=== PATIENT | male | born 1960 | race Caucasian/White ===

== ENCOUNTER 2016-11-01 17:09 | Inpatient (IN) ==
[2016-11-01] MEDS ORDERED: Albuterol 2.5 MG/3 ML NEBULIZER IH ONE (17:12)
[2016-11-01] MEDS ORDERED: Ipratropium/Albuterol Neb 3 ML IH ONE (17:12)
[2016-11-01] MEDS ORDERED: methylPREDNISolone 125 MG/2 ML VIAL IVP ONE (17:12)
[2016-11-01] MEDS ORDERED: Vancomycin 2,000 MG in D5% in Water 500 ML IVPB STA (17:25)
[2016-11-01] MEDS ORDERED: Azithromycin 500 MG in D5% in Water 250 ML IVPB ONE (17:25)
[2016-11-01 17:39] LABS: Basophils % 0.3 %; Hematocrit 40.8 % (37.5-50.1); Hemoglobin 13.8 g/dL (12.9-16.9); Immature Granulocytes % 0.9 % (0-4); Immature Platelets 1.5 % (1.1-6.1); Lymphocytes # 1.8 K/mcL (0.6-4.6); Lymphocytes % 16.3 %; Mean Corpuscular HGB Conc 33.8 g/dL (31.6-35.5); Mean Corpuscular Hemoglobin 32.9 pg (28.0-33.3); Mean Corpuscular Volume 97.1 fL (83.0-100.0); Mean Platelet Volume 8.8 fL (9.4-12.4); Monocytes # 0.5 K/mcL (0.0-1.3); Monocytes % 4.3 %; Neutrophils # 8.8 K/mcL (1.6-8.9); Platelet Count 262 K/mcL (140-400); Red Cell Distribution Width 13.7 % (11.5-14.5); Segmented Neutrophils % 78.2 %
[2016-11-01 17:51] LABS: BUN/Creatinine Ratio 15 (6-26); Blood Urea Nitrogen 16 mg/dL (8-26); Carbon Dioxide 25 mEq/L (19-29); Chloride 102 mEq/L (98-109); Glucose 215 mg/dL (70-99); Osmolality,Calculated 292 (280-300); Potassium 4.1 mEq/L (3.5-4.5); Sodium 137 mEq/L (136-145); eGFR For African Americans > 60 (> 60); eGFR For Non-African Americans > 60 (> 60)
[2016-11-01] MEDS ORDERED: Cefepime HCl 2,000 MG in D5% in Water (Mini-Bag+) 100 ML IVPB ONE (17:51)
--- NOTE | 2016-11-01 18:22 | Emergency Department Note ---
Disposition Clinical Impression: Acute exacerbation of chronic obstructive airways disease, Community acquired pneumonia Disposition: Admitted As Inpatient Condition: Good Forms: ED Satisfaction Letter Time of Disposition: 18:00 SOB HPI - General Chief Complaint: ED Shortness of Breath/Dyspnea Stated Complaint: FAN Time Seen by Provider: 11/01/16 17:11 Source: patient, EMS Mode of arrival: EMS Limitations: no limitations Nursing Notes Reviewed: Yes Vital Signs Reviewed: Yes - History of Present Illness 56-year-old male presents with increasing shortness of breath. Patient states he has been treated with levofloxacin and prednisone over 2 courses over the past month. Patient had a chest x-ray which shows a right middle lobe pneumonia done 2 days ago. Patient states that his symptoms have become progressively worse. She was unable to walk across his house without becoming short of breath. He reports subjective fevers and took Tylenol prior to arrival. Patient denies nausea, vomiting, diarrhea. - Related Data Allergies Allergy/AdvReac Type Severity Reaction Status Date / Time latex Allergy Rash Verified 11/01/16 17:44 morphine Allergy Vomiting Verified 11/01/16 17:44 All systems ED: reviewed and negative except as stated. Constitutional: Reports: fever, chills, weakness Cardiovascular: Reports: dyspnea on exertion. Denies: chest pain, palpitations Respiratory: Reports: cough, dyspnea, wheezes Gastrointestinal: Denies: abdominal pain, nausea, vomiting Genitourinary: Denies: urgency, dysuria Musculoskeletal: Denies: back pain, neck pain Integumentary: Denies: rash Neurological: Denies: headache, weakness Past Medical History - Past Medical History Attestation: Yes The following information was validated with the patient. Source: patient Medical history: Reports: asthma, COPD, hypertension - Social History Smoking Status: Former smoker Smokeless Tobacco Status: No Alcohol use: Reports: none Drug use: Reports: none Physical Exam General: Alert and in no acute distress Skin: Warm, dry, intact Head: Normocephalic and atraumatic Neck: Supple, trachea midline and no tenderness Cardiovascular: RRR, no murmur, normal perfusion Respiratory: Moderate amount of wheezing in the bilateral posterior lung childers. Patient has moderate respiratory distress on initial evaluation. Musculoskeletal: Normal strength, no tenderness, swelling or deformity GI: Soft, nontender, nondistended. Bowel sounds present Neuro: A&O to person, place, time and situation. No focal deficits noted on exam Psychiatric: cooperative and appropriate mood and affect. - General General appearance: alert Course Vital Signs Temperature 97.7 F 11/01/16 17:12 Pulse Rate 91 11/01/16 17:12 Respiratory Rate 18 11/01/16 17:12 Blood Pressure 124/74 11/01/16 17:12 O2 Sat by Pulse Oximetry 96 11/01/16 17:12 Temperature 97.7 F 11/01/16 17:12 Pulse Rate 91 11/01/16 17:12 Respiratory Rate 18 11/01/16 18:07 Blood Pressure 124/74 11/01/16 17:12 O2 Sat by Pulse Oximetry 96 11/01/16 18:07 Oxygen Delivery Oxygen Delivery Aerosol Mask Shortness of Breath/Dyspnea - MDM Narrative Medical decision making narrative: Patient started on IV antibiotics and admitted to the hospital for failure of outpatient treatment of community-acquired pneumonia. - Medical Records Medical records reviewed: Yes I reviewed the patient's medical records. - Lab Data Lab results reviewed: Yes I reviewed the patient's lab results. Result diagrams: 11/01/16 17:26 11/01/16 17:26 Lab Results 11/01/16 11/01/16 11/01/16 Range/Units 17:26 17:26 17:26 WBC 11.3 H (4.3-11.1) K/mcL RBC 4.20 (4.19-5.50) M/mcL Hgb 13.8 (12.9-16.9) g/dL Hct 40.8 (37.5-50.1) % MCV 97.1 (83.0-100.0) fL MCH 32.9 (28.0-33.3) pg MCHC 33.8 (31.6-35.5) g/dL RDW 13.7 (11.5-14.5) % Plt Count 262 (140-400) K/mcL MPV 8.8 L (9.4-12.4) fL Immature Gran % 0.9 (0-4) % Seg Neutrophils % 78.2 % Lymphocytes % 16.3 % Monocytes % 4.3 % Eosinophils % 0.0 % Basophils % 0.3 % Neutrophils # 8.8 (1.6-8.9) K/mcL Lymphocytes # 1.8 (0.6-4.6) K/mcL Monocytes # 0.5 (0.0-1.3) K/mcL Eosinophils # 0.0 (0.0-0.6) K/mcL Basophils # 0.0 (0.0-0.2) K/mcL Immature Plt Fraction 1.5 (1.1-6.1) % Sodium 137 (136-145) mEq/L Potassium 4.1 (3.5-4.5) mEq/L Chloride 102 (98-109) mEq/L Carbon Dioxide 25 (19-29) mEq/L BUN 16 (8-26) mg/dL Creatinine 1.04 (0.72-1.25) mg/dL Est GFR ( Amer) > 60 (> 60) Est GFR (Non-Af Amer) > 60 (> 60) BUN/Creatinine Ratio 15 (6-26) Glucose 215 H (70-99) mg/dL Calculated Osmolality 292 (280-300) Calcium 10.0 (8.6-10.8) mg/dL Troponin I 0.01 (0-0.03) ng/mL B-Natriuretic Peptide (0-100) pg/mL Specimen Rejected 11/01/16 11/01/16 Range/Units 17:26 17:57 WBC (4.3-11.1) K/mcL RBC (4.19-5.50) M/mcL Hgb (12.9-16.9) g/dL Hct (37.5-50.1) % MCV (83.0-100.0) fL MCH (28.0-33.3) pg MCHC (31.6-35.5) g/dL RDW (11.5-14.5) % Plt Count (140-400) K/mcL MPV (9.4-12.4) fL Immature Gran % (0-4) % Seg Neutrophils % % Lymphocytes % % Monocytes % % Eosinophils % % Basophils % % Neutrophils # (1.6-8.9) K/mcL Lymphocytes # (0.6-4.6) K/mcL Monocytes # (0.0-1.3) K/mcL Eosinophils # (0.0-0.6) K/mcL Basophils # (0.0-0.2) K/mcL Immature Plt Fraction (1.1-6.1) % Sodium (136-145) mEq/L Potassium (3.5-4.5) mEq/L Chloride (98-109) mEq/L Carbon Dioxide (19-29) mEq/L BUN (8-26) mg/dL Creatinine (0.72-1.25) mg/dL Est GFR ( Amer) (> 60) Est GFR (Non-Af Amer) (> 60) BUN/Creatinine Ratio (6-26) Glucose (70-99) mg/dL Calculated Osmolality (280-300) Calcium (8.6-10.8) mg/dL Troponin I (0-0.03) ng/mL B-Natriuretic Peptide 18 (0-100) pg/mL Specimen Rejected Hemolyzed - Radiology Data Radiology results reviewed: Yes I reviewed the patient's radiology results. - EKG Data EKG attestation: Yes I reviewed and interpreted this EKG. EKG results narrative: ECG - interpreted by ED physician. Rate 70 to, normal sinus rhythm, no STEMI, CO, QT intervals, and QRS within normal limits
[2016-11-01] MEDS ORDERED: Mag Hydrox/Al Hydrox/Simeth 30 ML UDC PO PRN (19:12)
[2016-11-01] MEDS ORDERED: MOM Conc 10 ML UD.LIQ PO PRN (19:12)
[2016-11-01] MEDS ORDERED: Ondansetron 4 MG/2 ML VIAL IVP PRN (19:12)
[2016-11-01] MEDS ORDERED: Naloxone 0.4 MG/ML INJ IVP PRN (19:12)
[2016-11-01] MEDS ORDERED: *HR* HYDROcodone/Acet 5/325 mg TABLET PO PRN (19:12)
[2016-11-01] MEDS ORDERED: Acetaminophen 325 MG TABLET PO PRN (19:12)
[2016-11-01] MEDS ORDERED: Albuterol 2.5 MG/3 ML NEBULIZER IH PRN ×2 (19:17→19:49)
--- NOTE | 2016-11-01 19:28 | Internal Med History&Physical ---
Date of Encounter: 11/02/16 Time of Encounter: 18:45 Assessment and Plan (1) Acute exacerbation of chronic obstructive airways disease Current visit: Yes Status: Acute Pt with hx of COPD/asthma. Has had two courses of abx and steroids over last month as outpatient and does not feel any better. Continues to have significant respiratory issues. I have placed him inpatient as I am concerned about worsening respiratory issues and anticipate he will be here more than 2 midnights. Admit, IV steroids and abx, aerosols. Check CT chest due to persistent symptoms. May need pulm consult. Will add guafenesin as well. (2) Community acquired pneumonia Current visit: Yes Status: Acute Recent treatment with two abx and steroids. Blood cx done in ED. Started on Cefipime and Azithromycin. He was given one dose of Vancomycin IV in ED but I will hold off on this as I think he is low risk for MRSA. Respiratory panel ordered. CT chest tomorrow. (3) ADNYELLE (obstructive sleep apnea) Current visit: Yes Status: Chronic Had sleep study and is to be wearing CPAP of 10. (4) HTN (hypertension) Current visit: Yes Status: Chronic Will continue home medications. (5) Diabetes Current visit: Yes Status: Chronic Continue home meds as well as coverage with accuchecks. 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 David is a 56 year old male with hx of asthma (since childhood) and COPD presented to ED with persistent dyspnea. Symptoms began around 09/23 and at that time he took a course of Levaquin and steroids for 10 days. He had a CXR with RML pneumonia at that time. Symptoms returned and again he had a course of 10 days of Levaquin and steroids. Symptoms have persisted and CXR 2 days ago was reported to have continued pneumonia. He remains very dyspneic and wheezy. He is unable to exert himself without significant dyspnea. He describes a feeling of being "under water" and squeezing in his chest area. He also feels swollen since being on steroids. Denies fever documented but "always feels warm." No diarrhea or urinary symptoms. No prior hx of cardiac disease but does have HTN and diabetes. No recent travel. Past Med Surg Social Fam HX - Past Medical History Source: patient Medical history: arthritis, asthma, COPD, diabetes (Chronic back pain), hypertension Psychiatric history: no psych history - Past Surgical History Surgical History: knee replacement (Left - ) - Social History Smoking Status: Former smoker Smokeless Tobacco Status: No Alcohol use: none Drug use: none Occupational status: unemployed Current living situation: Home - Independent Activity Level: Independent ambulation Recent Out of Country Travel Within the Last 8 Weeks: No Exposure or Possible Exposure to Illness During Travel: No Additional social history: Prior alcohol - quit in 1995. Smoked 2 1/2 PPD for about 14 years. - Family History Father Hx Family Cardiac Disorders: Yes Mother Hx Family Medical Disorders: Yes (DVT) Internal Medicine - H&P: Meds Albuterol Neb [Proventil Neb] 2.5 mg IH Q6H PRN 11/01/16 [History] Albuterol Sulfate [Albuterol Inhaler] 1 - 2 puff IH Q6HR PRN 11/01/16 [History] Baclofen [Lioresal] 10 mg PO TID 11/01/16 [History] BuPROPion XL (24 HR) [Wellbutrin XL] 150 mg PO QAM 11/01/16 [History] Budesonide/Formoterol 160/4.5 [Symbicort 160/4.5] 2 puff IH BID 11/01/16 [ History] Cetirizine HCl [All Day Allergy] 10 mg PO DAILY 11/01/16 [History] CloNIDine HCl [Clonidine HCl] 0.2 mg PO AD PRN 11/01/16 [History] Dicyclomine [Bentyl] 10 mg PO TID 11/01/16 [History] Docusate [Colace] 100 mg PO BID 11/01/16 [History] Escitalopram [Lexapro] 20 mg PO QPM 11/01/16 [History] Fluticasone Propionate Nasal [Flonase] 100 mcg NS DAILY 11/01/16 [History] Gabapentin [Neurontin] 800 mg PO QID 11/01/16 [History] Ibuprofen [Motrin] 800 mg PO Q8HR 11/01/16 [History] Levofloxacin [Levaquin] 750 mg PO QAM 11/01/16 [History] Losartan/Hydrochlorothiazide [Hyzaar 100-25 Tablet] 1 tab PO QPM 11/01/16 [ History] Metoprolol XL (24 HR) Succ [Toprol XL] 25 mg PO QAM 11/01/16 [History] Montelukast [Singulair] 10 mg PO QPM 11/01/16 [History] Omeprazole [PriLOSEC] 20 mg PO QAM 11/01/16 [History] Oxycodone HCl/Acetaminophen [Percocet 7.5-325 mg Tablet] 1 tab PO Q6H PRN [History] PredniSONE [Deltasone] 20 mg PO DAILY 11/01/16 [History] Ranitidine HCl [Zantac] 300 mg PO QAM 11/01/16 [History] Simvastatin [Zocor] 40 mg PO QPM 11/01/16 [History] Allergies latex Allergy (Verified 11/01/16 17:44) Rash morphine Adverse Reaction (Verified 11/01/16 19:22) Vomiting All Systems PM: A 10-system review of systems was performed and is negative for pertinent findings except as documented above in the HPI. - Constitutional Constitutional: fatigue, malaise, weight gain - EENT Eyes: no blurry vision, no dry eye Ears: no decreased hearing, no ear pain Nose, mouth and throat: dry mouth, no mouth lesions, no mouth pain - Cardiovascular Cardiovascular ROS IM: dyspnea, dyspnea on exertion, edema, no irregular heart rhythm, no lightheadedness, no palpitations - Respiratory Respiratory: cough, dyspnea on exertion, wheezing, chest congestion - Gastrointestinal Gastrointestinal: no abdominal pain, no diarrhea, no dyspepsia, no hematemesis, no nausea - Genitourinary Genitourinary ROS male: no dysuria, no hematuria, no nocturia - Musculoskeletal Musculoskeletal ROS IM: back pain, stiffness - Integumentary Integumentary IM: no erythema, no rash - Neurological Neurological ROS: no abnormal gait, no dizziness, no loss of vision, no memory loss - Psychiatric Psychiatric: no abnormal sleep pattern, no depression - Endocrine Endocrine IM: no excessive sweating, no flushing - Hematologic/Lymphatic Hematologic/Lymphatic: no easy bleeding - Allergic/Immunologic Allergic/Immunologic: no itchy eyes, no uticaria - Constitutional Vitals: Temp Pulse Resp BP Pulse Ox 97.7 F 73 16 127/74 97 11/01/16 17:12 11/01/16 18:20 11/01/16 18:20 11/01/16 18:20 11/01/16 18:20 General appearance: Present: A&O X 3, morbidly obese, pleasant, answers questions appropriately Exam: Moderate respiratory distress with audible wheezing at bedside - Head Head exam: Present: atraumatic, normocephalic - Eye Eye exam: Present: EOMI, normal appearance, conjuntiva pink - ENT ENT exam: Present: mucous membranes dry - Neck Neck exam general surgery: Absent: lymphadenopathy, tenderness, nuchal rigidity , thyromegaly - Respiratory Respiratory exam: Present: prolonged expiratory phase, rhonchi, wheezes - Cardiovascular Cardiovascular exam: Present: distant heart sounds, RRR. Absent: systolic murmur, tachycardia - GI/Abdominal GI/Abdominal exam: Present: normal bowel sounds, soft. Absent: mass, tenderness Additional comments: Obese - difficult to feel mass. - Extremities Exam Extremities exam: Present: pedal edema, warm. Absent: joint swelling, tenderness - Back Exam Back exam: Absent: tenderness - Neurological Exam Neurological exam: Present: alert, CN II-XII intact, oriented X3, no focal deficits - Psychiatric Psychiatric exam: Present: normal affect, normal mood - Skin Skin exam: Present: dry, warm. Absent: rash Internal Med - H&P Results - Labs CBC & Chem 7: 11/02/16 04:48 11/02/16 04:48
[2016-11-01] MEDS ORDERED: D5% in Water 1,000 ML IV PRN (19:46)
[2016-11-01] MEDS ORDERED: Dextrose Gel 15 GM PO PRN ×2 (19:46)
[2016-11-01] MEDS ORDERED: *HR* Dextrose 50 % in Water (Syg) 50 ML SYRINGE IVP PRN (19:46)
[2016-11-01] MEDS ORDERED: NON-FORMULARY MEDICATION 1 EACH EACH (Clonidine Hcl [Clonidine Hcl] 0.2 MG) PO PRN (19:49)
[2016-11-01 20:28] LABS: Hemoglobin A1C 6.7 %
[2016-11-01] MEDS ORDERED: Gabapentin 400 MG CAPSULE PO SCH (21:00)
[2016-11-01] MEDS: Ipratropium/Albuterol Neb 3 ML IH SCH ×2 (21:12→23:49)
[2016-11-01] MEDS: Budesonide/Formoterol 160/4.5 MDI IH SCH ×2 (21:12→23:49)
[2016-11-01] MEDS ORDERED: Ibuprofen 800 MG TABLET PO PRN (21:48)
[2016-11-01] MEDS: *HR* OxyCODONE/APAP 7.5/325 TABLET PO PRN (22:04)
[2016-11-01] MEDS: Gabapentin 400 MG CAPSULE PO SCH (22:04)
[2016-11-01] MEDS: Losartan/HCTZ 50-12.5 TABLET PO SCH (22:04)
[2016-11-01] MEDS: Baclofen 10 MG TABLET PO SCH (22:05)
[2016-11-01] MEDS: Insulin LISPRO 300 UNITS/3 ML VIAL SQ SCH (22:23)
[2016-11-02] MEDS ORDERED: Ibuprofen 800 MG TABLET PO SCH
[2016-11-02] MEDS: *HR* Heparin 5,000 UNIT/ML VIAL SQ SCH ×3 (00:44→16:30)
[2016-11-02] MEDS: methylPREDNISolone 125 MG/2 ML VIAL IVP SCH ×4 (00:44→18:37)
[2016-11-02] MEDS: Ipratropium/Albuterol Neb 3 ML IH SCH ×4 (02:35→22:03)
[2016-11-02] MEDS: Gabapentin 400 MG CAPSULE PO SCH ×4 (02:57→20:19)
[2016-11-02] MEDS: Famotidine 20 MG TABLET PO SCH (02:58)
[2016-11-02] MEDS: BuPROPion XL (24 HR) 150 MG TABLET PO SCH (02:58)
[2016-11-02] MEDS: Loratadine 10 MG TABLET PO SCH (02:58)
[2016-11-02] MEDS: *HR* OxyCODONE/APAP 7.5/325 TABLET PO PRN ×3 (04:07→18:31)
[2016-11-02 05:04] LABS: Basophils % 0.2 %; Hemoglobin 13.4 g/dL (12.9-16.9); Immature Granulocytes % 1.5 % (0-4); Lymphocytes % 9.9 %; Mean Corpuscular HGB Conc 34.4 g/dL (31.6-35.5); Mean Corpuscular Hemoglobin 32.8 pg (28.0-33.3); Mean Corpuscular Volume 95.4 fL (83.0-100.0); Mean Platelet Volume 8.8 fL (9.4-12.4); Monocytes # 0.1 K/mcL (0.0-1.3); Neutrophils # 9.2 K/mcL (1.6-8.9); Platelet Count 236 K/mcL (140-400); Red Blood Count 4.09 M/mcL (4.19-5.50); Red Cell Distribution Width 13.3 % (11.5-14.5); Segmented Neutrophils % 87.4 %
[2016-11-02 05:25] LABS: Alanine Aminotransferase 33 Units/L (0-55); Albumin 3.2 g/dL (3.5-5.0); Albumin/Globulin Ratio 0.7 (1.1-2.2); Alkaline Phosphatase 53 Units/L (38-126); Aspartate Amino Transferase 19 Units/L (5-34); BUN/Creatinine Ratio 19 (6-26); Bilirubin,Total 0.4 mg/dL (0.2-1.2); Blood Urea Nitrogen 19 mg/dL (8-26); Calcium 9.6 mg/dL (8.6-10.8); Carbon Dioxide 26 mEq/L (19-29); Chloride 101 mEq/L (98-109); Chol/HDL Ratio 2.4 (0-4.9); Cholesterol 178 mg/dL (< 200); Globulin 4.4 g/dL (2.4-3.5); Glucose 250 mg/dL (70-99); HDL Cholesterol 73 mg/dL (40-59); LDL Cholesterol,Calculated 88 mg/dL (0-99); Magnesium 1.9 mg/dL (1.6-2.6); Osmolality,Calculated 291 (280-300); Phosphorous 3.7 mg/dL (2.3-4.7); Sodium 135 mEq/L (136-145); Total Protein 7.6 g/dL (6.0-8.3); Triglycerides 84 mg/dL (< 150); eGFR For African Americans > 60 (> 60); eGFR For Non-African Americans > 60 (> 60)
[2016-11-02] MEDS: Cefepime HCl 2,000 MG in D5% in Water (Mini-Bag+) 100 ML IVPB SCH ×2 (06:41→18:39)
[2016-11-02] MEDS: Metoprolol XL (24 HR) Succ 25 MG TAB.ER.24H PO SCH (09:03)
[2016-11-02] MEDS: Insulin LISPRO 300 UNITS/3 ML VIAL SQ SCH ×4 (09:06→21:43)
[2016-11-02] MEDS: Fluticasone Propionate Nasal 50 MCG/SPRAY BOTTLE NS SCH (09:08)
[2016-11-02] MEDS: Budesonide/Formoterol 160/4.5 MDI IH SCH ×2 (11:09→22:03)
[2016-11-02] MEDS: Baclofen 10 MG TABLET PO SCH ×3 (11:21→20:18)
--- NOTE | 2016-11-02 11:33 | Electrocardiograph Report ---
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
--- NOTE | 2016-11-02 13:58 | Pulmonology Consult Note ---
Date of Encounter: 11/02/16 Time of Encounter: 13:56 Assessment and Plan (1) Acute exacerbation of chronic obstructive airways disease Current Visit: Yes Status: Acute Patient has had several exacerbations of obstructive lung disease over the last couple of months is unclear to me what process is at play here I suspect he may have a possible component of cardiogenic pulmonary edema at present would favor culturing patient for respiratory infection but I do not this anything empiric antibiotics or steroids are necessary. Would focus on bronchodilator therapy and trial of diuresis. I agree with a noncontrasted CT scan of his chest given chronicity of symptoms his checks x-ray was unremarkable for acute pneumonic process Current oxygen saturation is appropriate on room air (2) Lower extremity edema Current Visit: Yes Status: Acute Bilateral pitting edema long-standing hypertension have concern for heart failure with preserved ejection fraction BNP was normal however patient's morbidly obese I would get baseline echocardiogram and trial of Lasix goal -1- 1.5 L over the next 24 hours continue to monitor renal function panel while diuresing this should be done at least daily Qualifiers: Laterality: bilateral Qualified Code(s): R60.0 - Localized edema (3) HTN (hypertension) Current Visit: Yes Status: Chronic Blood pressure control is still suboptimal will do defer to primary hospitalist service to manage this Qualifiers: Hypertension type: essential hypertension Qualified Code(s): I10 - Essential (primary) hypertension (4) Morbid obesity Current Visit: Yes Status: Chronic Patient is struggled with calorie counts and has been inactive secondary to having a torn meniscus and has not been a candidate for surgery to this and if for no other reason would try to avoid steroids if possible Qualifiers: Obesity type: due to excess calories Qualified Code(s): E66.01 - Morbid ( severe) obesity due to excess calories (5) DANYELLE (obstructive sleep apnea) Current Visit: Yes Status: Chronic Wear CPAP with pressure of 10 at night will transition over to BiPAP in the current setting for increased work of breathing or at night would start empiric settings 16/8 bleed in oxygen to keep saturations greater than 89% to approximately 92% currently he is not requiring any oxygen (6) DVT prophylaxis Current Visit: Yes Status: Acute While inpatient high risk medicine patient would recommend chemical DVT prophylaxis History of Present Illness Consult date: 11/02/16 Requesting physician: Joshua Rosado Reason for consult: asthma Chief complaint: Shortness of Breath History of present illness: Mr. David is a very pleasant 56-year-old gentleman well known to me from clinic where I have seen him for obstructive lung disease ray has a phenotype consistent with combination of COPD as he was very remote former smoker along with asthma. He also suffers from morbid obesity and obstructive sleep apnea. When I saw him at the beginning of September he was doing quite well on therapy for asthma and very compliant with positive airway pressure at night. He states that since around the time of he has noted increased cough with sputum production difficulty with breathing he has undergone at least 2 rounds of antibiotics and steroids given to him by his primary care physician despite that he presented to the emergency room yesterday with increased work of breathing says it feels like his lungs are "filling up with fluid". He also notes that he has had increased swelling in his legs increased weight gain much of which she attributes to indiscretion with holiday foods. Denies fevers chills or hemoptysis Continues to be compliant with BAP therapy every night he does state that he feels like "there is not enough pressure" to help him sleep as her was before Past Med Surg Social Fam HX - Past Medical History Medical history: asthma, COPD, hypertension Psychiatric history: no psych history - Past Surgical History Surgical History: knee replacement - Social History Smoking Status: Former smoker Smokeless Tobacco Status: No Alcohol use: none Drug use: none - Family History Father Hx Family Cardiac Disorders: Yes Mother Hx Family Medical Disorders: Yes (DVT) Medications and Allergies Albuterol Neb [Proventil Neb] 2.5 mg IH Q6H PRN 11/01/16 [History] Albuterol Sulfate [Albuterol Inhaler] 1 - 2 puff IH Q6HR PRN 11/01/16 [History] Baclofen [Lioresal] 10 mg PO TID 11/01/16 [History] BuPROPion XL (24 HR) [Wellbutrin XL] 150 mg PO QAM 11/01/16 [History] Budesonide/Formoterol 160/4.5 [Symbicort 160/4.5] 2 puff IH BID 11/01/16 [ History] Cetirizine HCl [All Day Allergy] 10 mg PO DAILY 11/01/16 [History] CloNIDine HCl [Clonidine HCl] 0.2 mg PO AD PRN 11/01/16 [History] Dicyclomine [Bentyl] 10 mg PO TID 11/01/16 [History] Docusate [Colace] 100 mg PO BID 11/01/16 [History] Escitalopram [Lexapro] 20 mg PO QPM 11/01/16 [History] Fluticasone Propionate Nasal [Flonase] 100 mcg NS DAILY 11/01/16 [History] Gabapentin [Neurontin] 800 mg PO QID 11/01/16 [History] Ibuprofen [Motrin] 800 mg PO Q8HR 11/01/16 [History] Levofloxacin [Levaquin] 750 mg PO QAM 11/01/16 [History] Losartan/Hydrochlorothiazide [Hyzaar 100-25 Tablet] 1 tab PO QPM 11/01/16 [ History] Metoprolol XL (24 HR) Succ [Toprol XL] 25 mg PO QAM 11/01/16 [History] Montelukast [Singulair] 10 mg PO QPM 11/01/16 [History] Omeprazole [PriLOSEC] 20 mg PO QAM 11/01/16 [History] Oxycodone HCl/Acetaminophen [Percocet 7.5-325 mg Tablet] 1 tab PO Q6H PRN [History] PredniSONE [Deltasone] 20 mg PO DAILY 11/01/16 [History] Ranitidine HCl [Zantac] 300 mg PO QAM 11/01/16 [History] Simvastatin [Zocor] 40 mg PO QPM 11/01/16 [History] Allergies latex Allergy (Verified 11/01/16 17:44) Rash morphine Adverse Reaction (Verified 11/01/16 19:22) Vomiting All Systems: A 10-system review of systems was performed and is negative for pertinent findings except as documented above in the HPI. Physical Examination Vital Signs: Vital Signs, Last 4 Hours Temp Pulse Resp BP Pulse Ox 11/02/16 11:31 97.6 F 70 14 170/97 94 L General appearance: no acute distress ENT: oropharynx moist Effort: mildly labored Auscultation: bilateral: diminished breath sounds, wheezes (faint wheeze ), rales (bl in lung bases ), rhonchi (scattered ) Cardiovascular: regular rate and rhythm Gastrointestinal: non-tender Extremities: edema Musculoskeletal: no deformities normal mental status, non-focal exam mood appropriate Results - Laboratory Findings CBC and BMP: 11/02/16 04:48 11/02/16 04:48 Abnormal lab findings: Abnormal lab results RBC 4.09 M/mcL (4.19-5.50) L 11/02/16 04:48 MPV 8.8 fL (9.4-12.4) L 11/02/16 04:48 Neutrophils # 9.2 K/mcL (1.6-8.9) H 11/02/16 04:48 Sodium 135 mEq/L (136-145) L 11/02/16 04:48 Glucose 250 mg/dL (70-99) H 11/02/16 04:48 POC Glucose 185 (58-89) H 11/02/16 11:38 Hemoglobin A1c 6.7 % (-5.6) H 11/01/16 17:26 Lactic Acid 2.9 mmol/L (0.5-2.2) H 11/01/16 18:47 Albumin 3.2 g/dL (3.5-5.0) L 11/02/16 04:48 Globulin 4.4 g/dL (2.4-3.5) H 11/02/16 04:48 Albumin/Globulin Ratio 0.7 (1.1-2.2) L 11/02/16 04:48 HDL Cholesterol 73 mg/dL (40-59) H 11/02/16 04:48 - Diagnostic Findings Chest x-ray: report reviewed CT scan - chest: pending - Clinical Findings Intake & Output: Intake & Output 11/01/16 11/02/16 11/02/16 23:59 07:59 15:59 Intake Total 270 / 270 Balance 270 / 270 Weight 168.6 kg Consult Discharge Plan - Plan Referrals: Torie Crespo, DEBORAH [Primary Care Provider] - 11/08/16 1:25 pm
[2016-11-02] MEDS: Furosemide 40 MG/4 ML VIAL IVP SCH ×2 (16:29→18:44)
[2016-11-02] MEDS ORDERED: Cefepime HCl 2,000 MG in D5% in Water (Mini-Bag+) 100 ML IVPB ONE (17:25)
--- NOTE | 2016-11-02 18:08 | Internal Med Progress Note ---
Date of Encounter: 11/02/16 Time of Encounter: 13:00 - Assessment and plan (1) Acute exacerbation of chronic obstructive airways disease Current Visit: Yes Status: Acute Assessment and plan: Slight improvement today. Continue current management. Appreciate pulm input and plan. Bipap tonight. Anticipate wean steroids tomorrow. Lasix for diuresis tonight. (2) Community acquired pneumonia Current Visit: Yes Status: Acute Assessment and plan: Continue same IV abx. (3) DANYELLE (obstructive sleep apnea) Current Visit: Yes Status: Chronic Assessment and plan: Per pulm (4) HTN (hypertension) Current Visit: Yes Status: Chronic Assessment and plan: Continue home meds. Has been higher overnight but better today. Qualifiers: Hypertension type: essential hypertension Qualified Code(s): I10 - Essential (primary) hypertension (5) Diabetes Current Visit: Yes Status: Chronic Assessment and plan: Continue coverage. HgbA1C was 6.7% Qualifiers: Diabetes mellitus type: type 2 Diabetes mellitus complication status: with hyperglycemia Diabetes mellitus superintendent container terminal insulin use: without senior living use Qualified Code(s): E11.65 - Type 2 diabetes mellitus with hyperglycemia (6) Morbid obesity Current Visit: Yes Status: Chronic Qualifiers: Obesity type: due to excess calories Qualified Code(s): E66.01 - Morbid ( severe) obesity due to excess calories - Subjective Interval history: Mr. David is currently admitted for acute exac COPD and pneumonia. He is moderate to high risk due to potential worsening of respiratory status and failure of prior treatment. Mr. David is up and moving in room. He is doing OK but did not sleep well. Thinks breathing improved after about 4AM. Still coughing a lot. No abd pain or GI symptoms. - Constitutional Vitals: Temp Pulse Resp BP Pulse Ox 97.9 F 71 16 166/88 96 11/02/16 16:00 11/02/16 16:00 11/02/16 16:00 11/02/16 16:00 11/02/16 16:00 General appearance: Present: A&O X 3, morbidly obese, pleasant, answers questions appropriately - Head Head exam: Present: normocephalic - Eye Eye exam: Present: EOMI, conjuntiva pink - ENT ENT exam: Present: mucous membranes moist - Respiratory Respiratory exam: Present: decreased breath sounds. Absent: rhonchi, wheezes - Cardiovascular Cardiovascular exam: Present: RRR. Absent: tachycardia - GI/Abdominal GI/Abdominal exam: Present: soft. Absent: tenderness - Extremities Exam Extremities exam: Present: pedal edema, warm - Neurological Exam Neurological exam: Present: alert, oriented X3, no focal deficits - Psychiatric Psychiatric exam: Present: normal affect, normal mood - Skin Skin exam: Present: dry, normal color, warm. Absent: rash Internal Medicine: Result - Labs CBC & Chem 7: 11/02/16 04:48 11/02/16 04:48 Labs: Short CBC 11/02/16 Range/Units 04:48 WBC 10.5 (4.3-11.1) K/mcL Hgb 13.4 (12.9-16.9) g/dL Hct 39.0 (37.5-50.1) % Plt Count 236 (140-400) K/mcL Neutrophils # 9.2 H (1.6-8.9) K/mcL BMP 11/02/16 04:48 Sodium 135 L Potassium 4.0 Chloride 101 Carbon Dioxide 26 BUN 19 Creatinine 1.01 Glucose 250 H Calcium 9.6 Cardiac Enzymes 11/02/16 11/02/16 11/02/16 Range/Units 00:02 04:48 11:39 Troponin I 0.00 0.00 0.00 (0-0.03) ng/mL Liver Function 11/02/16 Range/Units 04:48 Total Bilirubin 0.4 (0.2-1.2) mg/dL AST 19 (5-34) Units/L ALT 33 (0-55) Units/L Alkaline Phosphatase 53 (38-126) Units/L Albumin 3.2 L (3.5-5.0) g/dL - Impressions Impressions Chest CT 11/02/16 15:30 IMPRESSION: Partial collapse of the right middle lobe likely accounting for the opacity seen on 10/30/2016 chest x-ray. This may be from chronic granulomatous disease/scarring. Recommend correlation with symptoms of pneumonia and follow-up. Stable 7 mm left lower lobe pulmonary nodule unchanged since at least 2012 exam, stable. No additional follow-up is required. Evidence of remote calcified granulomatous disease. D/ / 11/02/2016 16:55:53 Gabriel Maddox MD / alfred Interpreting Provider: Gabriel Maddox MD Consult Discharge Plan - Plan Referrals: Torie Crespo CNP [Primary Care Provider] - 11/08/16 1:25 pm
[2016-11-02] MEDS: Azithromycin 500 MG in D5% in Water 250 ML IVPB SCH (18:42)
[2016-11-02] MEDS: Losartan/HCTZ 50-12.5 TABLET PO SCH (20:17)
[2016-11-03] MEDS: methylPREDNISolone 125 MG/2 ML VIAL IVP SCH ×5 (00:02→23:57)
[2016-11-03] MEDS: *HR* Heparin 5,000 UNIT/ML VIAL SQ SCH ×4 (00:02→23:58)
[2016-11-03] MEDS: *HR* OxyCODONE/APAP 7.5/325 TABLET PO PRN ×4 (00:02→18:04)
[2016-11-03] MEDS: Gabapentin 400 MG CAPSULE PO SCH ×4 (03:36→21:54)
[2016-11-03] MEDS: Loratadine 10 MG TABLET PO SCH (03:36)
[2016-11-03] MEDS: Famotidine 20 MG TABLET PO SCH (03:36)
[2016-11-03] MEDS: BuPROPion XL (24 HR) 150 MG TABLET PO SCH (03:37)
[2016-11-03] MEDS: Ipratropium/Albuterol Neb 3 ML IH SCH ×4 (05:08→22:18)
[2016-11-03] MEDS: Cefepime HCl 2,000 MG in D5% in Water (Mini-Bag+) 100 ML IVPB SCH ×2 (05:54→16:41)
[2016-11-03 07:15] LABS: Hematocrit 38.8 % (37.5-50.1); Hemoglobin 13.2 g/dL (12.9-16.9); Mean Corpuscular Hemoglobin 32.6 pg (28.0-33.3); Mean Corpuscular Volume 95.8 fL (83.0-100.0); Mean Platelet Volume 8.8 fL (9.4-12.4); Platelet Count 241 K/mcL (140-400); Red Blood Count 4.05 M/mcL (4.19-5.50); Red Cell Distribution Width 13.4 % (11.5-14.5)
[2016-11-03 07:32] LABS: BUN/Creatinine Ratio 28 (6-26); Blood Urea Nitrogen 29 mg/dL (8-26); Calcium 9.3 mg/dL (8.6-10.8); Carbon Dioxide 27 mEq/L (19-29); Chloride 100 mEq/L (98-109); Glucose 252 mg/dL (70-99); Osmolality,Calculated 292 (280-300); Potassium 4.4 mEq/L (3.5-4.5); Sodium 134 mEq/L (136-145); eGFR For African Americans > 60 (> 60); eGFR For Non-African Americans > 60 (> 60)
--- NOTE | 2016-11-03 07:58 | ECHO - Doppler Report ---
Echocardiogram Name: Adrian David Date of Study: 11/02/2016 Date: 1960 Ht: 74.0 in Medical Record#: [id number] Age: 56 Wt: 371.0 lb Gender: Male BSA: 2.83 Order #: [id number] Location: [facility] Room #: 2NE34 Reading Physician: Matheus Miller MD, [facility] Clerical Support Specialist: Mari Woodard Ordering Physician: Joshua Rosado DO Primary Physician: Torie Crespo CNP Indications: Persistent Dyspnea, Edema Impressions: Technically sub-optimal due to poor echocardiographic windows. Normal left ventricular size and systolic function, LVEF 55%. Moderate left ventricular diastolic dysfunction. Normal right ventricular size and function. Mildly dilated left atrium. No significant valvular dysfunction. Unable to estimate RVSP due to lack of TR jet. Left Ventricular Wall Motion: Rest Echo Findings All wall segments showed normal motion. Findings: Study Quality * Technically sub-optimal due to poor echocardiographic windows. ECG Findings * Normal sinus rhythm. Left Ventricle * Normal left ventricular size and systolic function, LVEF 55%. * Normal LV wall thickness. * Moderate left ventricular diastolic dysfunction. Right Ventricle * Normal right ventricular size and function. Left Atrium * Mildly dilated left atrium. Right Atrium * Normal right atrial size. Aorta * Normally sized aortic root. Pericardium * There is no pericardial effusion present. IVC * The IVC was not visualized. Aortic Valve * Aortic valve not well visualized. Appears trileaflet. * Normal aortic valve function. Mitral Valve * Normal mitral valve structure. * Normal mitral valve function. Tricuspid Valve * Tricuspid valve not well visualized. * Normal tricuspid valve function. * Unable to estimate RVSP due to lack of TR jet. Pulmonic Valve * Pulmonic valve not well visualized. * Normal pulmonic valve function. History Hypertension Family History of CAD 04/28/2015 a Previous Echo was performed. Measurements: BP: 170/ 97 2D Normal Values RVIDd: 2.40 cm IVSd: 1.00 cm 0.6 - 1.0 cm LVIDd: 5.80 cm 3.7 - 5.6 cm LVPWd: 1.00 cm 0.6 - 1.1 cm LVIDs: 4.10 cm 1.5 - 3.6 cm AO: 3.50 cm < 4.0 cm LA volume: 98 Mitral Valve Peak E:1.01 m/sec Peak A:.84 m/sec E/A Ratio:1.2 Updated by Matheus Miller MD, [facility] on 11/03/2016 7:50:27 AM electronically signed on 11/03/2016 7:53:58 AM with status of Final Wall Motion [place]: 1=Normal, 2=Hypokinesis, 3=Akinesis, 4=Dyskinesis, 5=Aneurysmal, 6=Hyperkinetic, X=Not Visualized (Blank)=Missing
--- NOTE | 2016-11-03 08:57 | Pulmonology Progress Note ---
Date of Encounter: 11/03/16 Time of Encounter: 08:57 Assessment and Plan (1) Acute exacerbation of chronic obstructive airways disease Current Visit: Yes Status: Acute Joystick as he does have a mild flare of underlying obstructive lung disease I agree with continued bronchodilators and a five-day course of azithromycin at this time. I do not think that there is an indication acutely for steroids and so hold off on those. He has had some chronic right middle lobe collapse which is likely present for some time this can be evaluated later as an outpatient likely with bronchoscopy. (2) Lower extremity edema Current Visit: Yes Status: Acute Echo consistent with mild to moderate diastolic dysfunction left atrium mildly dilated I would continue diuresis at this time goal -1-1.5 L tonight and would have at least daily renal function panel to assess for electrolyte replacement needs and kidney function Qualifiers: Laterality: bilateral Qualified Code(s): R60.0 - Localized edema (3) HTN (hypertension) Current Visit: Yes Status: Chronic Qualifiers: Hypertension type: essential hypertension Qualified Code(s): I10 - Essential (primary) hypertension (4) Morbid obesity Current Visit: Yes Status: Chronic Qualifiers: Obesity type: due to excess calories Qualified Code(s): E66.01 - Morbid ( severe) obesity due to excess calories (5) DANYELLE (obstructive sleep apnea) Current Visit: Yes Status: Chronic It is imperative that this gentleman wears his positive airway pressure at night I have put another request for respiratory therapy T use this during naps and when he sleeps and if any issues of increased work of breathing (6) DVT prophylaxis Current Visit: Yes Status: Acute Subjective Principal diagnosis: Shortness of Breath Interval history: Generally feels a bit better today after he received diuresis. Still with some cough. Did not wear BiPAP last night because the machine was not brought in Objective PUL Vital signs: Last Vital Signs Temp 97.5 F L 11/03/16 07:23 Pulse 67 11/03/16 07:23 Resp 16 11/03/16 07:23 BP 172/99 11/03/16 07:23 Pulse Ox 95 11/03/16 08:00 General appearance: no acute distress Neck: supple Auscultation: bilateral: diminished breath sounds, wheezes, rales, rhonchi Cardiovascular: regular rate and rhythm Gastrointestinal: non-tender Extremities: edema normal mental status, non-focal exam Results - Laboratory Findings CBC and BMP: 11/03/16 06:41 11/03/16 06:41 Abnormal lab findings: Abnormal lab results WBC 12.8 K/mcL (4.3-11.1) H 11/03/16 06:41 RBC 4.05 M/mcL (4.19-5.50) L 11/03/16 06:41 MPV 8.8 fL (9.4-12.4) L 11/03/16 06:41 Neutrophils # 9.2 K/mcL (1.6-8.9) H 11/02/16 04:48 Sodium 134 mEq/L (136-145) L 11/03/16 06:41 BUN 29 mg/dL (8-26) H D 11/03/16 06:41 BUN/Creatinine Ratio 28 (6-26) H 11/03/16 06:41 Glucose 252 mg/dL (70-99) H 11/03/16 06:41 POC Glucose 268 (58-89) H 11/03/16 07:25 Hemoglobin A1c 6.7 % (-5.6) H 11/01/16 17:26 Lactic Acid 2.9 mmol/L (0.5-2.2) H 11/01/16 18:47 Albumin 3.2 g/dL (3.5-5.0) L 11/02/16 04:48 Globulin 4.4 g/dL (2.4-3.5) H 11/02/16 04:48 Albumin/Globulin Ratio 0.7 (1.1-2.2) L 11/02/16 04:48 HDL Cholesterol 73 mg/dL (40-59) H 11/02/16 04:48 - Microbiology Findings Microbiology Findings: Microbiology, Last 48 Hours 11/03/16 07:56 Legionella Antigen - Final Urine,Clean Catch Streptococcus pneumoniae Antigen (M - Final - Diagnostic Findings Chest x-ray: report reviewed, image reviewed CT scan - chest: report reviewed, image reviewed - Clinical Findings Intake & Output: Intake & Output 11/02/16 11/03/16 11/03/16 23:59 07:59 15:59 Intake Total 220 / 220 Balance 220 / 220 - VTE Documentation of Mechanical Device: Venous foot pump, device Consult Discharge Plan - Plan Referrals: Torie Crespo CNP [Primary Care Provider] - 11/08/16 1:25 pm
[2016-11-03 10:26] LABS: Adenovirus Not Detected (Not Detect); Bordetella Pertussis Not Detected (Not Detect); Chlamydophila pneumoniae Not Detected (Not Detect); Coronavirus 229E Not Detected (Not Detect); Coronavirus HKU1 Not Detected (Not Detect); Coronavirus NL63 Not Detected (Not Detect); Coronavirus OC43 Not Detected (Not Detect); Human Metapneumovirus Not Detected (Not Detect); Human Rhinovirus/Enterovirus Not Detected (Not Detect); Influenza A Subtype 2009 H1 Not Detected (Not Detect); Influenza A Untypeable Not Detected (Not Detect); Influenza B Not Detected (Not Detect); Mycoplasma pneumoniae Not Detected (Not Detect); Parainfluenza Virus 1 Not Detected (Not Detect); Parainfluenza Virus 2 Not Detected (Not Detect); Parainfluenza Virus 3 Not Detected (Not Detect); Parainfluenza Virus 4 Not Detected (Not Detect); Respiratory Syncytial Virus Not Detected (Not Detect)
[2016-11-03] MEDS: Insulin LISPRO 300 UNITS/3 ML VIAL SQ SCH ×4 (10:30→22:01)
[2016-11-03] MEDS: Metoprolol XL (24 HR) Succ 25 MG TAB.ER.24H PO SCH (10:30)
[2016-11-03] MEDS: Furosemide 40 MG/4 ML VIAL IVP SCH ×2 (10:30→16:42)
[2016-11-03] MEDS: Baclofen 10 MG TABLET PO SCH ×3 (10:30→21:55)
[2016-11-03] MEDS: Fluticasone Propionate Nasal 50 MCG/SPRAY BOTTLE NS SCH (10:30)
[2016-11-03] MEDS: Budesonide/Formoterol 160/4.5 MDI IH SCH ×2 (11:17→22:19)
[2016-11-03] MEDS: Azithromycin 500 MG in D5% in Water 250 ML IVPB SCH (17:22)
--- NOTE | 2016-11-03 17:34 | Internal Med Progress Note ---
Date of Encounter: 11/03/16 Time of Encounter: 10:00 - Assessment and plan (1) Diastolic CHF, acute Current Visit: Yes Status: Acute Assessment and plan: Continue diuresis as tolerated. (2) Acute exacerbation of chronic obstructive airways disease Current Visit: Yes Status: Acute Assessment and plan: Continues to slowly improve. Continue current pulm management. (3) Community acquired pneumonia Current Visit: Yes Status: Acute Assessment and plan: Continue same IV abx. Will have bronch after discharge. (4) DANYELLE (obstructive sleep apnea) Current Visit: Yes Status: Chronic Assessment and plan: Per pulm (5) HTN (hypertension) Current Visit: Yes Status: Chronic Assessment and plan: Continue home meds. Seems better today. Qualifiers: Hypertension type: essential hypertension Qualified Code(s): I10 - Essential (primary) hypertension (6) Diabetes Current Visit: Yes Status: Chronic Assessment and plan: Continue coverage. HgbA1C was 6.7% Blood sugars have been higher most likely related to steroids. Qualifiers: Diabetes mellitus type: type 2 Diabetes mellitus complication status: with hyperglycemia Diabetes mellitus terminal gauger insulin use: without terminal gauger use Qualified Code(s): E11.65 - Type 2 diabetes mellitus with hyperglycemia (7) Morbid obesity Current Visit: Yes Status: Chronic Qualifiers: Obesity type: due to excess calories Qualified Code(s): E66.01 - Morbid ( severe) obesity due to excess calories - Subjective Interval history: Mr. David is currently admitted for acute exac COPD and pneumonia. He is moderate to high risk due to potential worsening of respiratory status and failure of prior treatment. Mr. David has diuresed some and does not feel as swollen. He is breathing better after this as well. No CP. No GI symptoms. Slept OK last night. - Constitutional Vitals: Temp Pulse Resp BP Pulse Ox 97.4 F L 64 16 161/71 94 L 11/03/16 15:27 11/03/16 15:27 11/03/16 16:24 11/03/16 15:27 11/03/16 16:24 General appearance: Present: A&O X 3, pleasant, answers questions appropriately - Head Head exam: Present: normocephalic - Eye Eye exam: Present: EOMI, conjuntiva pink - ENT ENT exam: Present: mucous membranes dry - Respiratory Respiratory exam: Present: decreased breath sounds. Absent: rhonchi, wheezes - Cardiovascular Cardiovascular exam: Present: distant heart sounds, RRR. Absent: systolic murmur, tachycardia - GI/Abdominal GI/Abdominal exam: Present: soft. Absent: mass, tenderness - Extremities Exam Extremities exam: Present: pedal edema, warm - Neurological Exam Neurological exam: Present: alert, oriented X3, no focal deficits - Psychiatric Psychiatric exam: Present: normal affect, normal mood - Skin Skin exam: Present: dry, warm. Absent: rash Internal Medicine: Result - Labs CBC & Chem 7: 11/03/16 06:41 11/03/16 06:41 Labs: Short CBC 11/03/16 Range/Units 06:41 WBC 12.8 H (4.3-11.1) K/mcL Hgb 13.2 (12.9-16.9) g/dL Hct 38.8 (37.5-50.1) % Plt Count 241 (140-400) K/mcL BMP 11/03/16 06:41 Sodium 134 L Potassium 4.4 Chloride 100 Carbon Dioxide 27 BUN 29 H D Creatinine 1.02 Glucose 252 H Calcium 9.3 - Impressions Impressions Chest CT 11/02/16 15:30 IMPRESSION: Partial collapse of the right middle lobe likely accounting for the opacity seen on 10/30/2016 chest x-ray. This may be from chronic granulomatous disease/scarring. Recommend correlation with symptoms of pneumonia and follow-up. Stable 7 mm left lower lobe pulmonary nodule unchanged since at least 2012 exam, stable. No additional follow-up is required. Evidence of remote calcified granulomatous disease. D/ / 11/02/2016 16:55:53 Gabriel Maddox MD / alfred Interpreting Provider: Gabriel Maddox MD - VTE Documentation of Mechanical Device: Venous foot pump, device Consult Discharge Plan - Plan Referrals: Torie Crespo CNP [Primary Care Provider] - 11/08/16 1:25 pm
[2016-11-03] MEDS: Losartan/HCTZ 50-12.5 TABLET PO SCH (21:54)
[2016-11-04] MEDS: Loratadine 10 MG TABLET PO SCH (02:35)
[2016-11-04] MEDS: Gabapentin 400 MG CAPSULE PO SCH ×4 (02:35→21:40)
[2016-11-04] MEDS: Famotidine 20 MG TABLET PO SCH (02:35)
[2016-11-04] MEDS: BuPROPion XL (24 HR) 150 MG TABLET PO SCH (02:35)
[2016-11-04] MEDS: Ipratropium/Albuterol Neb 3 ML IH SCH ×4 (04:35→22:00)
[2016-11-04 05:25] LABS: Hematocrit 38.4 % (37.5-50.1); Hemoglobin 13.3 g/dL (12.9-16.9); Mean Corpuscular HGB Conc 34.6 g/dL (31.6-35.5); Mean Corpuscular Hemoglobin 33.3 pg (28.0-33.3); Platelet Count 248 K/mcL (140-400); Red Cell Distribution Width 13.4 % (11.5-14.5)
[2016-11-04 05:46] LABS: BUN/Creatinine Ratio 35 (6-26); Blood Urea Nitrogen 37 mg/dL (8-26); Carbon Dioxide 25 mEq/L (19-29); Chloride 101 mEq/L (98-109); Glucose 258 mg/dL (70-99); Osmolality,Calculated 300 (280-300); Sodium 136 mEq/L (136-145); eGFR For African Americans > 60 (> 60); eGFR For Non-African Americans > 60 (> 60)
[2016-11-04] MEDS: methylPREDNISolone 125 MG/2 ML VIAL IVP SCH ×4 (05:49→23:29)
[2016-11-04] MEDS: Cefepime HCl 2,000 MG in D5% in Water (Mini-Bag+) 100 ML IVPB SCH (05:49)
[2016-11-04 06:10] LABS: Potassium 4.4 mEq/L (3.5-4.5)
[2016-11-04] MEDS: Baclofen 10 MG TABLET PO SCH ×3 (08:41→21:40)
[2016-11-04] MEDS: Metoprolol XL (24 HR) Succ 25 MG TAB.ER.24H PO SCH (08:42)
[2016-11-04] MEDS: Fluticasone Propionate Nasal 50 MCG/SPRAY BOTTLE NS SCH (08:42)
[2016-11-04] MEDS: *HR* Heparin 5,000 UNIT/ML VIAL SQ SCH ×3 (08:43→23:29)
[2016-11-04] MEDS: Insulin LISPRO 300 UNITS/3 ML VIAL SQ SCH ×4 (08:43→21:43)
[2016-11-04] MEDS: Furosemide 40 MG/4 ML VIAL IVP SCH ×3 (08:43→17:06)
[2016-11-04] MEDS: *HR* OxyCODONE/APAP 7.5/325 TABLET PO PRN ×3 (08:56→21:49)
[2016-11-04] MEDS: Budesonide/Formoterol 160/4.5 MDI IH SCH ×2 (10:39→22:00)
--- NOTE | 2016-11-04 15:33 | Pulmonology Progress Note ---
Date of Encounter: 11/04/16 Time of Encounter: 15:31 Assessment and Plan (1) Acute exacerbation of chronic obstructive airways disease Current Visit: Yes Status: Acute Joystick as he does have a mild flare of underlying obstructive lung disease I agree with continued bronchodilators and a five-day course of azithromycin at this time. On balance given still with some airway inflammation steroids are reasonable okay to do prednisone 40 mg images taper this over 2 weeks He has had some chronic right middle lobe collapse which is likely present for some time this can be evaluated later as an outpatient likely with bronchoscopy. I am checking an IgE level and Aspergillus IgE is well for possible although less likely ABPA I am going off service tomorrow and feel that patient is stable with continued diuresis and and discharge with diuretic regimen steroid taper and bronchodilators that if questions arise can call but will not follow directly with new service Should questions arise please feel free to contact Dr. Aldridge who comes on service tomorrow. I will make him aware of this patient I will follow-up otherwise as outpatient (2) Lower extremity edema Current Visit: Yes Status: Acute Echo consistent with mild to moderate diastolic dysfunction left atrium mildly dilated I would continue diuresis at this time goal -1-1.5 L tonight and would have at least daily renal function panel to assess for electrolyte replacement needs and kidney function Qualifiers: Laterality: bilateral Qualified Code(s): R60.0 - Localized edema (3) HTN (hypertension) Current Visit: Yes Status: Chronic Qualifiers: Hypertension type: essential hypertension Qualified Code(s): I10 - Essential (primary) hypertension (4) Morbid obesity Current Visit: Yes Status: Chronic Qualifiers: Obesity type: due to excess calories Qualified Code(s): E66.01 - Morbid ( severe) obesity due to excess calories (5) DANYELLE (obstructive sleep apnea) Current Visit: Yes Status: Chronic It is imperative that this gentleman wears his positive airway pressure at night I have put another request for respiratory therapy T use this during naps and when he sleeps and if any issues of increased work of breathing (6) DVT prophylaxis Current Visit: Yes Status: Acute Subjective Principal diagnosis: Shortness of Breath Interval history: Still complaining of shortness of breath and cough Does have some improvement with diuresis Still has not received CPAP machine for nocturnal use Objective PUL Vital signs: Last Vital Signs Temp 98.2 F 11/04/16 15:00 Pulse 70 01/01/17 15:00 Resp 20 11/04/16 15:00 BP 137/81 11/04/16 15:00 Pulse Ox 94 L 11/04/16 15:00 General appearance: no acute distress Eyes: nonicteric Effort: mildly labored Auscultation: bilateral: diminished breath sounds, rhonchi Extremities: edema normal mental status, non-focal exam Results - Laboratory Findings CBC and BMP: 11/04/16 04:55 11/04/16 04:55 Abnormal lab findings: Abnormal lab results WBC 12.4 K/mcL (4.3-11.1) H 11/04/16 04:55 RBC 4.00 M/mcL (4.19-5.50) L 11/04/16 04:55 MPV 9.0 fL (9.4-12.4) L 11/04/16 04:55 Neutrophils # 9.2 K/mcL (1.6-8.9) H 11/02/16 04:48 BUN 37 mg/dL (8-26) H 11/04/16 04:55 BUN/Creatinine Ratio 35 (6-26) H 11/04/16 04:55 Glucose 258 mg/dL (70-99) H 11/04/16 04:55 POC Glucose 276 (58-89) H 11/03/16 21:05 Hemoglobin A1c 6.7 % (-5.6) H 11/01/16 17:26 Lactic Acid 2.9 mmol/L (0.5-2.2) H 11/01/16 18:47 Albumin 3.2 g/dL (3.5-5.0) L 11/02/16 04:48 Globulin 4.4 g/dL (2.4-3.5) H 11/02/16 04:48 Albumin/Globulin Ratio 0.7 (1.1-2.2) L 11/02/16 04:48 HDL Cholesterol 73 mg/dL (40-59) H 11/02/16 04:48 - Microbiology Findings Microbiology Findings: Microbiology, Last 48 Hours 11/03/16 07:56 Legionella Antigen - Final Urine,Clean Catch Streptococcus pneumoniae Antigen (M - Final - Clinical Findings Intake & Output: Intake & Output 11/03/16 11/04/16 11/04/16 23:59 07:59 15:59 Intake Total 350 / 350 0 / 0 Balance 350 / 350 0 / 0 Weight 167.5 kg - VTE Documentation of Mechanical Device: Venous foot pump, device Consult Discharge Plan - Plan Referrals: Torie Crespo CNP [Primary Care Provider] - 11/08/16 1:25 pm
[2016-11-04] MEDS: Azithromycin 500 MG in D5% in Water 250 ML IVPB SCH (17:07)
--- NOTE | 2016-11-04 18:28 | Internal Med Progress Note ---
Date of Encounter: 11/04/16 Time of Encounter: 09:30 - Assessment and plan (1) Diastolic CHF, acute Current Visit: Yes Status: Acute Assessment and plan: Continue diuresis. Dose increased today. (2) Acute exacerbation of chronic obstructive airways disease Current Visit: Yes Status: Acute Assessment and plan: Continue aggressive pulmonary management. (3) Community acquired pneumonia Current Visit: Yes Status: Acute Assessment and plan: Continue same IV abx. Will have bronch after discharge. (4) DANYELLE (obstructive sleep apnea) Current Visit: Yes Status: Chronic Assessment and plan: Per pulm (5) HTN (hypertension) Current Visit: Yes Status: Chronic Assessment and plan: Continue home meds. Qualifiers: Hypertension type: essential hypertension Qualified Code(s): I10 - Essential (primary) hypertension (6) Diabetes Current Visit: Yes Status: Chronic Assessment and plan: Continue coverage. HgbA1C was 6.7% Blood sugars have been higher most likely related to steroids. Qualifiers: Diabetes mellitus type: type 2 Diabetes mellitus complication status: with hyperglycemia Diabetes mellitus retirement insulin use: without terminal system operator use Qualified Code(s): E11.65 - Type 2 diabetes mellitus with hyperglycemia (7) Morbid obesity Current Visit: Yes Status: Chronic Qualifiers: Obesity type: due to excess calories Qualified Code(s): E66.01 - Morbid ( severe) obesity due to excess calories - Subjective Interval history: Mr. David is currently admitted for acute exac COPD and pneumonia. He is moderate to high risk due to potential worsening of respiratory status and failure of prior treatment. Mr. David has diuresed but still very dyspneic with any exertion. No CP. Less edema. Appetite OK. No fever or chills. - Constitutional Vitals: Temp Pulse Resp BP Pulse Ox 98.2 F 70 18 137/81 94 L 11/04/16 15:00 11/04/16 15:00 11/04/16 16:35 11/04/16 15:00 11/04/16 16:35 General appearance: Present: mild distress, A&O X 3, pleasant, answers questions appropriately - Head Head exam: Present: normocephalic - Eye Eye exam: Present: conjuntiva pink - ENT ENT exam: Present: mucous membranes dry - Respiratory Respiratory exam: Present: decreased breath sounds, wheezes, tachypnea - Cardiovascular Cardiovascular exam: Present: RRR, tachycardia - GI/Abdominal GI/Abdominal exam: Present: soft. Absent: mass, tenderness - Extremities Exam Extremities exam: Present: pedal edema, warm - Neurological Exam Neurological exam: Present: alert, oriented X3, no focal deficits - Psychiatric Psychiatric exam: Present: normal affect, normal mood - Skin Skin exam: Present: dry, warm. Absent: rash Internal Medicine: Result - Labs CBC & Chem 7: 11/04/16 04:55 11/04/16 04:55 Labs: Short CBC 11/04/16 Range/Units 04:55 WBC 12.4 H (4.3-11.1) K/mcL Hgb 13.3 (12.9-16.9) g/dL Hct 38.4 (37.5-50.1) % Plt Count 248 (140-400) K/mcL [facility] 11/04/16 04:55 Sodium 136 Potassium 4.4 Chloride 101 Carbon Dioxide 25 BUN 37 H Creatinine 1.05 Glucose 258 H Calcium 9.0 - VTE Documentation of Mechanical Device: Venous foot pump, device Consult Discharge Plan - Plan Referrals: Torie Crespo CNP [Primary Care Provider] - 11/08/16 1:25 pm
[2016-11-04] MEDS: Losartan/HCTZ 50-12.5 TABLET PO SCH (21:39)
[2016-11-05] MEDS: BuPROPion XL (24 HR) 150 MG TABLET PO SCH (03:01)
[2016-11-05] MEDS: Gabapentin 400 MG CAPSULE PO SCH ×4 (03:01→21:48)
[2016-11-05] MEDS: Famotidine 20 MG TABLET PO SCH (03:01)
[2016-11-05] MEDS: Loratadine 10 MG TABLET PO SCH (03:01)
[2016-11-05] MEDS: Ipratropium/Albuterol Neb 3 ML IH SCH ×4 (03:56→22:27)
[2016-11-05] MEDS: *HR* OxyCODONE/APAP 7.5/325 TABLET PO PRN ×4 (04:22→23:53)
[2016-11-05] MEDS: methylPREDNISolone 125 MG/2 ML VIAL IVP SCH ×4 (05:46→23:52)
[2016-11-05 05:55] LABS: Hematocrit 39.6 % (37.5-50.1); Hemoglobin 13.4 g/dL (12.9-16.9); Mean Corpuscular HGB Conc 33.8 g/dL (31.6-35.5); Mean Corpuscular Hemoglobin 32.6 pg (28.0-33.3); Mean Corpuscular Volume 96.4 fL (83.0-100.0); Mean Platelet Volume 9.1 fL (9.4-12.4); Platelet Count 254 K/mcL (140-400); Red Blood Count 4.11 M/mcL (4.19-5.50); Red Cell Distribution Width 13.6 % (11.5-14.5)
[2016-11-05 06:22] LABS: BUN/Creatinine Ratio 39 (6-26); Carbon Dioxide 26 mEq/L (19-29); Chloride 101 mEq/L (98-109); Potassium 3.6 mEq/L (3.5-4.5); Sodium 137 mEq/L (136-145); eGFR For African Americans > 60 (> 60)
[2016-11-05 06:23] LABS: Calcium 8.9 mg/dL (8.6-10.8); Glucose 301 mg/dL (70-99); Osmolality,Calculated 308 (280-300); eGFR For Non-African Americans > 60 (> 60)
[2016-11-05 06:32] LABS: Blood Urea Nitrogen 48 mg/dL (8-26)
[2016-11-05] MEDS: Furosemide 40 MG/4 ML VIAL IVP SCH ×3 (08:36→17:44)
[2016-11-05] MEDS: Baclofen 10 MG TABLET PO SCH ×3 (08:37→21:49)
[2016-11-05] MEDS: Metoprolol XL (24 HR) Succ 25 MG TAB.ER.24H PO SCH (08:37)
[2016-11-05] MEDS: *HR* Heparin 5,000 UNIT/ML VIAL SQ SCH ×3 (08:37→23:53)
[2016-11-05] MEDS: Insulin LISPRO 300 UNITS/3 ML VIAL SQ SCH ×4 (08:38→21:50)
[2016-11-05] MEDS: Fluticasone Propionate Nasal 50 MCG/SPRAY BOTTLE NS SCH (08:38)
[2016-11-05] MEDS: Budesonide/Formoterol 160/4.5 MDI IH SCH ×2 (10:53→22:27)
--- NOTE | 2016-11-05 13:32 | Internal Med Progress Note ---
<Dereck Hernandez - Last Filed: 11/05/16 13:53> Date of Encounter: 11/05/16 Time of Encounter: 11:00 - Assessment and plan (1) Acute exacerbation of chronic obstructive airways disease Current Visit: Yes Status: Acute Assessment and plan: Patient sob has improved considerably since admission. However even with nebulizer, abx, symbicort, mucinex, solumedrol patients states he still has some sob and feeling of fatigue in the morning. His family reports patient can sleep over 20 hours a day if no one wakes him up. He is on CPAP at home and was not started back up on it when admitted. Yesterday patient used BIPAP for 6 hours but felt uncomfortable on it due to mask size. We will try a full facial mask. Overnight patient will undergo BIPAP/overnight O2 qualifications. Patient may have chronic hypercapnia which can explain is symptoms of hypersomnolence, and morning fatigue. (2) Community acquired pneumonia Current Visit: Yes Status: Acute Assessment and plan: Continue same IV abx. Day three today. Will have bronch after discharge for collapsed right middle lobe. (3) DVT prophylaxis Current Visit: Yes Status: Acute (4) Diastolic CHF, acute Current Visit: Yes Status: Acute Assessment and plan: Continue diuresis. Mild pedal edema. Absent rales. Renal function stable. (5) Diabetes Current Visit: Yes Status: Chronic Assessment and plan: Continue coverage. HgbA1C was 6.7% Blood sugars have been higher most likely related to steroids. Patient does not seem to be on oral hypoglycemic agents at home. He will need to be started on metformin at discharge. Qualifiers: Diabetes mellitus type: type 2 Diabetes mellitus complication status: with hyperglycemia Diabetes mellitus extermination inspector insulin use: without extermination inspector use Qualified Code(s): E11.65 - Type 2 diabetes mellitus with hyperglycemia (6) HTN (hypertension) Current Visit: Yes Status: Chronic Assessment and plan: HTN in not controlled. 170s/80s. Currently on losartan/hydrochlorothiazide. Will start norvasc 5mg. Qualifiers: Hypertension type: essential hypertension Qualified Code(s): I10 - Essential (primary) hypertension (7) Morbid obesity Current Visit: Yes Status: Chronic Assessment and plan: Patient needs to loose weight which will greatly improve his breathing, DANYELLE. Qualifiers: Obesity type: due to excess calories Qualified Code(s): E66.01 - Morbid ( severe) obesity due to excess calories (8) DANYELLE (obstructive sleep apnea) Current Visit: Yes Status: Chronic Assessment and plan: plan as above. - Subjective Interval history: Patient reports improvement in breathing but felt quite fatiqued this morning. He says he is not back to his baseline. He reports no overnight problems. - Constitutional Vitals: Temp Pulse Resp BP Pulse Ox 97.6 F 82 18 179/79 98 11/05/16 07:00 11/05/16 07:00 11/05/16 10:53 11/05/16 07:00 11/05/16 10:53 General appearance: Present: mild distress, A&O X 3, pleasant, answers questions appropriately - Respiratory Respiratory exam: Present: CTAB, wheezes. Absent: accessory muscle use, rales, rhonchi - Cardiovascular Cardiovascular exam: Present: RRR, +S1, +S2. Absent: diastolic murmur, gallop, rubs, systolic murmur - GI/Abdominal GI/Abdominal exam: Present: normal bowel sounds, soft, no peritoneal signs. Absent: distended, tenderness - Extremities Exam Extremities exam: Present: pedal edema (mild b/l ), warm, radial pulses palpable and symetrical. Absent: calf tenderness, cyanotic - Psychiatric Psychiatric exam: Present: normal affect, normal mood Internal Medicine: Result - Labs CBC & Chem 7: 11/05/16 05:07 11/05/16 05:07 Labs: Short CBC 11/05/16 Range/Units 05:07 WBC 11.3 H (4.3-11.1) K/mcL Hgb 13.4 (12.9-16.9) g/dL Hct 39.6 (37.5-50.1) % Plt Count 254 (140-400) K/mcL BMP 11/05/16 05:07 Sodium 137 Potassium 3.6 Chloride 101 Carbon Dioxide 26 BUN 48 H D Creatinine 1.23 Glucose 301 H Calcium 8.9 - VTE Documentation of Mechanical Device: Venous foot pump, device Consult Discharge Plan - Plan Referrals: Torie Crespo CNP [Primary Care Provider] - 11/08/16 1:25 pm <Joshua Rosado - Last Filed: 11/05/16 18:13> Date of Encounter: 11/05/16 - Assessment and plan (1) Diastolic CHF, acute Current Visit: Yes Status: Acute (2) Acute exacerbation of chronic obstructive airways disease Current Visit: Yes Status: Acute (3) Community acquired pneumonia Current Visit: Yes Status: Acute (4) DANYELLE (obstructive sleep apnea) Current Visit: Yes Status: Chronic (5) HTN (hypertension) Current Visit: Yes Status: Chronic Qualifiers: Hypertension type: essential hypertension Qualified Code(s): I10 - Essential (primary) hypertension (6) Diabetes Current Visit: Yes Status: Chronic Qualifiers: Diabetes mellitus type: type 2 Diabetes mellitus complication status: with hyperglycemia Diabetes mellitus correction insulin use: without correction use Qualified Code(s): E11.65 - Type 2 diabetes mellitus with hyperglycemia (7) Morbid obesity Current Visit: Yes Status: Chronic Qualifiers: Obesity type: due to excess calories Qualified Code(s): E66.01 - Morbid ( severe) obesity due to excess calories - Constitutional Vitals: Temp Pulse Resp BP Pulse Ox 97.8 F 74 18 145/74 98 11/05/16 15:00 11/05/16 15:00 11/05/16 15:52 11/05/16 15:00 11/05/16 15:52 Internal Medicine: Result - Labs CBC & Chem 7: 11/05/16 05:07 11/05/16 05:07 Labs: Short CBC 11/05/16 Range/Units 05:07 WBC 11.3 H (4.3-11.1) K/mcL Hgb 13.4 (12.9-16.9) g/dL Hct 39.6 (37.5-50.1) % Plt Count 254 (140-400) K/mcL BMP 11/05/16 05:07 Sodium 137 Potassium 3.6 Chloride 101 Carbon Dioxide 26 BUN 48 H D Creatinine 1.23 Glucose 301 H Calcium 8.9 - Attending Attestation I examined this patient and my medical decision-making was reviewed with the Resident Physician. I agree with the documented findings, disposition and treatment plan as described except to the extent set forth below. Mr. David is currently admitted for acute exac COPD and pneumonia as well as acute diastolic CHF. He remains moderate to high risk due to potential for worsening respiratory issues. Mr. David wore the bipap last night and seems to be doing better today. Less dyspneic with exertion. No CP. Bowels OK. Exam Alert. Comfortable Less wheeze Heart reg Less edema I/P 1. COPD 2. Hypoxic resp failure Further diagnoses and plan as above.
[2016-11-05] MEDS: amLODIPine 5 MG TABLET PO SCH (17:43)
[2016-11-05] MEDS: Azithromycin 500 MG in D5% in Water 250 ML IVPB SCH (17:44)
[2016-11-05] MEDS: Losartan/HCTZ 50-12.5 TABLET PO SCH (21:49)
[2016-11-06] MEDS: Gabapentin 400 MG CAPSULE PO SCH ×2 (03:03→07:29)
[2016-11-06] MEDS: Famotidine 20 MG TABLET PO SCH (03:03)
[2016-11-06] MEDS: BuPROPion XL (24 HR) 150 MG TABLET PO SCH (03:03)
[2016-11-06] MEDS: Ipratropium/Albuterol Neb 3 ML IH SCH ×2 (03:11→10:18)
[2016-11-06 05:16] LABS: ABG Base Excess 6.8 mEq/L (-2.0 to 3.0); ABG HCO3 31.3 mEQ/L (21-27); ABG Oxygen Saturation 94 % (95-98); ABG PCO2 43 mmHg (35-45); ABG PH 7.47 pH Units (7.32-7.45); ABG PO2 68 mmHg (85-104); ABG TCO2 32.6 mEq/L (20-26)
[2016-11-06 05:18] LABS: Blood Gas FiO2 21 %
[2016-11-06 06:35] LABS: Basophils % 0.2 %; Hematocrit 37.7 % (37.5-50.1); Immature Granulocytes % 1.1 % (0-4); Lymphocytes # 0.7 K/mcL (0.6-4.6); Mean Corpuscular HGB Conc 34.5 g/dL (31.6-35.5); Mean Corpuscular Hemoglobin 32.8 pg (28.0-33.3); Mean Corpuscular Volume 95.2 fL (83.0-100.0); Mean Platelet Volume 8.9 fL (9.4-12.4); Monocytes # 0.3 K/mcL (0.0-1.3); Monocytes % 2.8 %; Neutrophils # 8.5 K/mcL (1.6-8.9); Platelet Count 227 K/mcL (140-400); Red Blood Count 3.96 M/mcL (4.19-5.50); Red Cell Distribution Width 13.2 % (11.5-14.5); Segmented Neutrophils % 88.9 %
[2016-11-06] MEDS: *HR* Heparin 5,000 UNIT/ML VIAL SQ SCH (07:28)
[2016-11-06] MEDS: Furosemide 40 MG/4 ML VIAL IVP SCH (07:28)
[2016-11-06] MEDS: methylPREDNISolone 125 MG/2 ML VIAL IVP SCH (07:28)
[2016-11-06] MEDS: Fluticasone Propionate Nasal 50 MCG/SPRAY BOTTLE NS SCH (07:28)
[2016-11-06] MEDS: Baclofen 10 MG TABLET PO SCH (07:29)
[2016-11-06] MEDS: amLODIPine 5 MG TABLET PO SCH (07:30)
[2016-11-06] MEDS: Metoprolol XL (24 HR) Succ 25 MG TAB.ER.24H PO SCH (07:30)
[2016-11-06] MEDS: *HR* OxyCODONE/APAP 7.5/325 TABLET PO PRN (07:30)
[2016-11-06] MEDS: Loratadine 10 MG TABLET PO SCH (07:33)
[2016-11-06 07:39] LABS: BUN/Creatinine Ratio 41 (6-26); Blood Urea Nitrogen 41 mg/dL (8-26); Calcium 8.8 mg/dL (8.6-10.8); Carbon Dioxide 26 mEq/L (19-29); Chloride 101 mEq/L (98-109); Glucose 270 mg/dL (70-99); Osmolality,Calculated 304 (280-300); Potassium 3.5 mEq/L (3.5-4.5); Sodium 137 mEq/L (136-145); eGFR For African Americans > 60 (> 60); eGFR For Non-African Americans > 60 (> 60)
[2016-11-06] MEDS: Insulin LISPRO 300 UNITS/3 ML VIAL SQ SCH ×2 (07:50→11:34)
--- NOTE | 2016-11-06 09:49 | Discharge Summary ---
<Dereck Hernandez - Last Filed: 11/06/16 18:57> Date of Encounter: 11/06/16 Time of Encounter: 09:37 - Discharge Diagnosis (1) Acute exacerbation of chronic obstructive airways disease Priority: Primary Status: Acute (2) Community acquired pneumonia Priority: Secondary Status: Acute (3) DVT prophylaxis Priority: Secondary Status: Acute (4) Diastolic CHF, acute Priority: Secondary Status: Acute (5) Diabetes Priority: Secondary Status: Chronic Qualifiers: Diabetes mellitus type: type 2 Diabetes mellitus complication status: with hyperglycemia Diabetes mellitus snf insulin use: without parts counterman use Qualified Code(s): E11.65 - Type 2 diabetes mellitus with hyperglycemia (6) HTN (hypertension) Priority: Secondary Status: Chronic Qualifiers: Hypertension type: essential hypertension Qualified Code(s): I10 - Essential (primary) hypertension (7) Morbid obesity Priority: Secondary Status: Chronic Qualifiers: Obesity type: due to excess calories Qualified Code(s): E66.01 - Morbid ( severe) obesity due to excess calories (8) DANYELLE (obstructive sleep apnea) Priority: Secondary Status: Chronic - Discharge Medications Prescriptions: Azithromycin [Zithromax] 500 mg PO Q24H #1 tablet Furosemide [Lasix] 40 mg PO BID #60 tab Lancets/Blood Glucose Strips [Fora [id number] Lanct-Str] 1 each QAM #1 combo..pkg Metformin [Glucophage] 500 mg PO BIDWM #30 tablet PredniSONE [Prednisone] 10 mg PO TAPER #10 tab.ds.pk Home Medications: Albuterol Neb [Proventil Neb] 2.5 mg IH Q6H PRN 11/01/16 [History] Albuterol Sulfate [Albuterol Inhaler] 1 - 2 puff IH Q6HR PRN 11/01/16 [History] Baclofen [Lioresal] 10 mg PO TID 11/01/16 [History] BuPROPion XL (24 HR) [Wellbutrin Xl] 150 mg PO QAM 11/01/16 [History] Budesonide/Formoterol 160/4.5 [Symbicort 160/4.5] 2 puff IH BID 11/01/16 [ History] Cetirizine HCl [All Day Allergy] 10 mg PO DAILY 11/01/16 [History] CloNIDine HCl [Clonidine HCl] 0.2 mg PO AD PRN 11/01/16 [History] Dicyclomine [Bentyl] 10 mg PO TID 11/01/16 [History] Docusate [Colace] 100 mg PO BID 11/01/16 [History] Escitalopram [Lexapro] 20 mg PO QPM 11/01/16 [History] Fluticasone Propionate Nasal [Flonase] 100 mcg NS DAILY 11/01/16 [History] Gabapentin [Neurontin] 800 mg PO QID 11/01/16 [History] Ibuprofen [Motrin] 800 mg PO Q8HR 11/01/16 [History] Losartan/Hydrochlorothiazide [Hyzaar 100-25 Tablet] 1 tab PO QPM 11/01/16 [ History] Metoprolol XL (24 HR) Succ [Toprol Xl] 25 mg PO QAM 11/01/16 [History] Montelukast [Singulair] 10 mg PO QPM 11/01/16 [History] Omeprazole [PriLOSEC] 20 mg PO QAM 11/01/16 [History] Oxycodone HCl/Acetaminophen [Percocet 7.5-325 mg Tablet] 1 tab PO Q6H PRN [History] PredniSONE [Deltasone] 20 mg PO DAILY 11/01/16 [History] Ranitidine HCl [Zantac] 300 mg PO QAM 11/01/16 [History] Simvastatin [Zocor] 40 mg PO QPM 11/01/16 [History] Azithromycin [Zithromax] 500 mg PO Q24H #1 tablet 11/06/16 [Rx] Furosemide [Lasix] 40 mg PO BID #60 tab 11/06/16 [Rx] Lancets/Blood Glucose Strips [Fora [id number] Lanct-Str] 1 each QAM #1 combo..pkg 11/06/16 [Rx] Metformin [Glucophage] 500 mg PO BIDWM #30 tablet 11/06/16 [Rx] PredniSONE [Prednisone] 10 mg PO TAPER #10 tab.ds.pk 11/06/16 [Rx] Allergies/Adverse Reactions: Allergies latex Allergy (Verified 11/01/16 17:44) Rash morphine Adverse Reaction (Verified 12/29/16 19:22) Vomiting Date of admission: 11/01/16 19:13 Primary care physician: Torie Crespo CNP Consults: 11/05/16 10:21 Consult to Staff Training And Development Manager [CONS] Routine Reason for SW Consult: home o2/ bipap 11/01/16 19:17 Consult to Nurse Navigator [CONS] Routine Comment: 11/02/16 13:16 Consult to Pulmonology [CONS] Routine Consulting Provider: [facility] [place] Reason for Consult: Persistent pneumonia/COPD since 09/23 despite outpatient treatment. Pt of practice with DANYELLE. -I messaged Dr Strange. Call Completed: Yes Discharging clinician: Dereck Hernandez Anticipated date of discharge: 11/06/16 - Patient Status Disposition: Home, Self-Care Condition: Good Functional capacity at discharge: independent ambulation (at times patient uses cane for assistance.) - Discharge Instructions Instructions: Furosemide (By mouth), Azithromycin (By mouth), Heart Failure (DC ), How to Check Your Blood Sugar (DC), How to Check Your Blood Sugar (GEN), Diabetes Insipidus (DC), Diabetes Insipidus (GEN), Diabetic Ketoacidosis (DC), Diabetic Ketoacidosis (GEN), Non-diabetic Hypoglycemia (DC), Non-diabetic Hypoglycemia (GEN), Diabetic Foot Care (DC), Diabetic Foot Care (GEN), Diabetic Hypoglycemia (DC), Diabetic Hypoglycemia (GEN), Diabetes Mellitus Type 2 in Adults (DC), Diabetes Mellitus Type 2 in Adults (GEN), Chronic Obstructive Pulmonary Disease (DC), Chronic Obstructive Pulmonary Disease (GEN), Meal Planning with Diabetes Exchanges (DC), Chronic Hypertension (DC), Fluid Restriction (DC), Fluid Restriction (GEN), Pneumonia (DC), Fluid Restriction, [place] (GEN), COPD, [place] (GEN), COPD Exacerbation, [place] (GEN) Follow Up With: Torie Crespo CNP [Primary Care Provider] - 11/08/16 1:25 pm Tu Saha MD [Partnered Physician] - 11/13/16 2:45 pm (Dr. Saha reqested appointment within seven days so patient can be setup for outpatient bronchoscopy. Dr. Melchor will be with the patient on the 11/13/16) - Diet and Activity Activity: increase activity as tolerated, resume usual activities as tolerated Diet: low fat, low cholesterol, low salt diet Hospital course: Mr. David is a 56 year old male hx of COPD, DANYELLE asthma diabetes presents with cc of sob. Patients symptoms started in september and he was treated then with abx and steorids and diagnosed with RML pneumonia. His symptoms did not improve and repeat CXR done two days before admission, showed persistent pneumonia. Patient was admitted for COPD exacerbation and started on steroid abx, and nebulizers. He was started on cefipime and Azitrhomycin for CAP. Pulmonary was consulted and recommend echocardiogram and CT chest and started on BIPAP. CT Chest showed partial collapse of R. middle lobe. Echocardiogram showed moderate LV diastolic dysfucntion with LVEF of 55%. Pulmonary recommended outpatient bronchoscopy and continuation of abx, steroid and nebulizer. He also had significant pedal edema which was treated with IV Diretics. Patient uses CPAP at night and was assessed for overnight BIPAP/ O2 qualifications. Patient did not qualify for either as his O2 remained >90% and PCO2 level was <52. Patients sob improved and he is ambulating well, has good oral intake and is medically stable for discharge. Patient also stated he did not have lancets, strips, glucometer and medication for diabetes at home. Patient will need to follow up with Dr. Saha and PCP. He will be discharged with metformin 500mg BID, lancets, strips, and glucometer. His furosimide dose will also be increased to 80mg TID as patient requires more aggressive diuresis. He will also be discharged on 2 week prednisone taper as per pulmonary recommendations and abx to finish up CAP therapy. - Time Spent with Patient Total time spent providing and/or coordinating discharge services: - Constitutional Vitals: Temp Pulse Resp BP Pulse Ox 97.7 F 68 16 147/90 93 L 11/06/16 07:30 11/06/16 07:30 11/06/16 07:30 11/06/16 07:30 11/06/16 07:30 General appearance: Present: mild distress, A&O X 3, pleasant, answers questions appropriately - Head Head exam: Present: atraumatic, normocephalic - Eye Eye exam: Present: EOMI, PERRL, conjuntiva pink, sclera anicteric - Neck Neck exam general surgery: Present: supple, trachea midline. Absent: lymphadenopathy - Respiratory Respiratory exam: Present: wheezes (mild basilar b/l ). Absent: accessory muscle use, rales, rhonchi - Cardiovascular Cardiovascular exam: Present: RRR, +S1, +S2. Absent: diastolic murmur, gallop, rubs, systolic murmur - GI/Abdominal GI/Abdominal exam: Present: normal bowel sounds, soft, no peritoneal signs. Absent: distended, tenderness - Extremities Exam Extremities exam: Present: pedal edema (1+ b/l ), warm, radial pulses palpable and symetrical. Absent: calf tenderness, cyanotic - Neurological Exam Neurological exam: Present: CN II-XII intact, oriented X3, no focal deficits. Absent: pronater drift, facial droop, speech deficit - Skin Skin exam: Present: dry, intact - VTE Documentation of Mechanical Device: Venous foot pump, device <Ebony,Kris P - Last Filed: 11/06/16 19:13> Date of Encounter: 11/06/16 Date of admission: 11/01/16 19:13 Primary care physician: Torie Crespo CNP Consults: 11/05/16 10:21 Consult to Staff Training And Development Manager [CONS] Routine Reason for SW Consult: home o2/ bipap 11/06/16 12:24 Consult to Sales Manager Prearranged [employer] [CONS] Stat Comment: 11/01/16 19:17 Consult to Nurse Navigator [CONS] Routine Comment: 11/02/16 13:16 Consult to Pulmonology [CONS] Routine Consulting Provider: [facility] [place] Reason for Consult: Persistent pneumonia/COPD since 09/23 despite outpatient treatment. Pt of practice with DANYELLE. -I messaged Dr Strange. Call Completed: Yes Hospital course: Mr. David is a 56 year old male - Time Spent with Patient Total time spent providing and/or coordinating discharge services: - Constitutional Vitals: Temp Pulse Resp BP Pulse Ox 97.6 F 66 16 152/99 94 L 11/06/16 11:18 11/06/16 11:18 11/06/16 11:18 11/06/16 11:18 11/06/16 12:39 - Attending Attestation I examined this patient and my medical decision-making was reviewed with the MANAGER REPORTING/PA/Advanced Practice Nurse/Resident Physician. I agree with the documented findings, disposition and treatment plan as described except to the extent set forth below.
[2016-11-06] MEDS: Budesonide/Formoterol 160/4.5 MDI IH SCH (10:18)
[2016-11-06 11:25] VITALS: BP 152/99
[2016-11-06] MEDS ORDERED: Azithromycin 250 MG TABLET PO SCH (18:00)
[2016-11-07 09:36] LABS: Aspergillus fumigatus IgE 0.11 kU/L (<=0.34)
== END 2016-11-06 13:52 | disposition home or self-care (01) | DRG 190 ==
LOC: EMEROO 17:09 → 2NENU 17:09
PROVIDERS: ADMIT Internal Medicine; ATTEND Internal Medicine

== ENCOUNTER 2017-01-08 12:41 | Inpatient (IN) ==
[2017-01-08] MEDS ORDERED: methylPREDNISolone 125 MG/2 ML VIAL IVP ONE (12:46)
[2017-01-08] MEDS ORDERED: Ipratropium/Albuterol Neb 3 ML IH ONE (12:46)
--- NOTE | 2017-01-08 12:50 | Emergency Department Note ---
Disposition Clinical Impression: Acute exacerbation of chronic obstructive airways disease Disposition: Admitted As Inpatient Condition: Fair Forms: ED Satisfaction Letter Time of Disposition: 14:19 SOB HPI - General Chief Complaint: ED Shortness of Breath/Dyspnea Stated Complaint: Shortness of breath Time Seen by Provider: 01/08/17 12:46 Source: patient, EMS Mode of arrival: EMS Limitations: no limitations Nursing Notes Reviewed: Yes Vital Signs Reviewed: Yes - History of Present Illness 56-year-old male with history COPD comes in with increasing shortness of breath. Patient has had 2 rounds of antibiotics and continues to have symptoms. Patient was sent in by his senior policy analyst. Pt Subjective Complaint: shortness of breath, cough Onset (ago): Just [employer]BU[employer]ICE Context: recent illness Severity: moderate Consistency/Duration: constant Improves with: nothing Worsens with: nothing Known history of: COPD Associated symptoms: Reports: fever, cough, wheezing Treatment prior to arrival: oxygen Cough present: Yes Cough Description: Involuntary Cough Frequency: Intermittent - Related Data Home Medications Medication Instructions Recorded Confirmed Albuterol Neb [Proventil Neb] 2.5 mg IH Q4H PRN 11/01/16 11/20/16 Albuterol Sulfate [Albuterol 2 puff IH Q4H PRN 11/01/16 11/20/16 Inhaler] Baclofen [Lioresal] 10 mg PO TID PRN 11/01/16 11/20/16 BuPROPion XL (24 HR) [Wellbutrin 150 mg PO QAM 11/01/16 11/20/16 Xl] Budesonide/Formoterol 160/4.5 2 puff IH BID 11/01/16 11/20/16 [Symbicort 160/4.5] Cetirizine HCl [All Day Allergy] 10 mg PO DAILY 11/01/16 11/20/16 CloNIDine HCl [Clonidine HCl] 0.2 mg PO DAILY PRN 11/01/16 11/20/16 Dicyclomine [Bentyl] 10 mg PO TID 11/01/16 11/20/16 Docusate [Colace] 100 mg PO BID 11/01/16 11/20/16 Escitalopram [Lexapro] 20 mg PO QPM 11/01/16 11/20/16 Fluticasone Propionate Nasal 100 mcg NS DAILY 11/01/16 11/20/16 [Flonase] Gabapentin [Neurontin] 800 mg PO QID 11/01/16 11/20/16 Montelukast [Singulair] 10 mg PO QPM 11/01/16 11/20/16 Oxycodone HCl/Acetaminophen 1 tab PO Q6H PRN 11/01/16 11/20/16 [Percocet 7.5-325 mg Tablet] Ranitidine HCl [Zantac] 300 mg PO QAM 11/01/16 11/20/16 Simvastatin [Zocor] 40 mg PO DAILY 11/01/16 11/20/16 Furosemide [Lasix] 20 mg PO BID 11/20/16 11/20/16 Ondansetron [Zofran ODT] 4 mg SL Q6H PRN 11/20/16 11/20/16 Umeclidinium [place] [Incruse 62.5 mcg IH DAILY 11/20/16 11/20/16 Ellipta] Previous Rx's Medication Instructions Recorded Metformin [Glucophage] 500 mg PO BIDWM #30 tablet 11/06/16 Allergies Allergy/AdvReac Type Severity Reaction Status Date / Time latex Allergy Rash Verified 11/01/16 17:44 morphine AdvReac Vomiting Verified 11/01/16 19:22 Constitutional: Denies: fever, chills, weakness, weight change Eyes: Denies: eye pain, eye discharge, vision change ENT ED: Denies: ear pain, throat pain, dental pain, hearing loss, epistaxis, congestion, dysphagia Cardiovascular: Denies: chest pain, palpitations, dyspnea on exertion, edema, syncope Respiratory: Reports: cough, dyspnea, wheezes. Denies: hemoptysis, stridor Gastrointestinal: Denies: abdominal pain, nausea, vomiting, diarrhea, constipation, hematemesis, melena, hematochezia Genitourinary: Denies: urgency, dysuria, frequency, hematuria Musculoskeletal: Denies: back pain, neck pain, arthralgia, myalgia Integumentary: Denies: rash, abrasion, lesions Neurological: Denies: headache, weakness, numbness, paresthesias, confusion, abnormal gait, vertigo Psychiatric: Denies: anxiety, depression, suicidal thoughts, homicidal thoughts , auditory hallucinations, visual hallucinations Endocrine: Denies: fatigue Hematological/Lymphatic: Denies: easy bleeding, easy bruising Allergic/Immunologic: Denies: facial swelling, urticaria Past Medical History - Past Medical History Medical history: Reports: arthritis, asthma, COPD, diabetes, hypertension Surgical history: Reports: knee replacement, sinus surgery Psychiatric history: Reports: no psych history - Social History Smoking Status: Never smoker Smokeless Tobacco Status: No Alcohol use: Reports: none Drug use: Reports: none Physical Exam - General Limitations: no limitations General appearance: alert, in no apparent distress - Head Head exam: atraumatic, normocephalic, normal inspection - Eye Eye exam: Present: normal appearance, PERRL, EOMI - ENT ENT exam: normal exam, normal oropharynx, mucous membranes moist - Neck Neck exam: Present: normal inspection, full ROM, trachea midline - Chest Chest inspection: Present: normal inspection, symmetric chest wall rise - Respiratory Respiratory exam: Present: wheezes, accessory muscle use - Cardiovascular Cardiovascular exam: Present: regular rate, normal rhythm, normal heart sounds - Abdominal Exam Abdominal exam: Present: soft, Non-Tender. Absent: tenderness, distention, guarding, rebound, rigidity - Extremities Exam Extremities exam: Present: normal inspection, full ROM. Absent: tenderness, pedal edema - Expanded Lower Extremity Exam Neurovascular/Tendon exam: Absent: motor deficit, sensory deficit, tendon deficit Gait: not tested/not observed - Back Exam Back exam: Present: normal inspection, full ROM. Absent: tenderness - Neurological Exam Neurological exam: Present: alert, oriented X3 - Psychiatric Psychiatric exam: Present: normal affect, normal mood - Skin Skin exam: Present: warm, dry, intact, normal color Course - Reevaluation(s) Reevaluation #1: 56-year-old with a history COPD was seen by pulmonology and sent here for evaluation. Patient has had 2 rounds of Zithromax and continues to have worsening symptoms. Time: 14:18 - Consultations Consultation #1: Discussed with , admit. Time: 14:18 Vital Signs Temperature 98.1 F 01/08/17 12:42 Pulse Rate 118 01/08/17 12:42 Respiratory Rate 28 01/08/17 12:42 Blood Pressure 138/89 01/08/17 12:42 O2 Sat by Pulse Oximetry 96 01/08/17 12:42 Temperature 98.1 F 01/08/17 12:42 Pulse Rate 93 01/08/17 13:30 Respiratory Rate 22 01/08/17 13:30 Blood Pressure 142/85 01/08/17 13:30 O2 Sat by Pulse Oximetry 97 01/08/17 13:30 Oxygen Delivery Oxygen Delivery Nasal Cannula Shortness of Breath/Dyspnea - Lab Data Result diagrams: 01/08/17 12:57 01/08/17 12:57 Lab Results 01/08/17 01/08/17 01/08/17 Range/Units 12:57 12:57 12:57 WBC 10.8 (4.3-11.1) K/mcL RBC 4.30 (4.19-5.50) M/mcL Hgb 13.6 (12.9-16.9) g/dL Hct 40.4 (37.5-50.1) % MCV 94.0 (83.0-100.0) fL MCH 31.6 (28.0-33.3) pg MCHC 33.7 (31.6-35.5) g/dL RDW 12.7 (11.5-14.5) % Plt Count 352 (140-400) K/mcL MPV 9.0 L (9.4-12.4) fL Immature Gran % 0.6 (0-4) % Seg Neutrophils % 61.1 % Lymphocytes % 25.8 % Monocytes % 9.6 % Eosinophils % 2.3 % Basophils % 0.6 % Neutrophils # 6.6 (1.6-8.9) K/mcL Lymphocytes # 2.8 (0.6-4.6) K/mcL Monocytes # 1.0 (0.0-1.3) K/mcL Eosinophils # 0.3 (0.0-0.6) K/mcL Basophils # 0.1 (0.0-0.2) K/mcL Sodium 140 (136-145) mEq/L Potassium 3.1 L (3.5-4.5) mEq/L Chloride 103 (98-109) mEq/L Carbon Dioxide 27 (19-29) mEq/L BUN 13 (8-26) mg/dL Creatinine 0.98 (0.72-1.25) mg/dL Est GFR ( Amer) > 60 (> 60) Est GFR (Non-Af Amer) > 60 (> 60) BUN/Creatinine Ratio 13 (6-26) Glucose 206 H (70-99) mg/dL Calculated Osmolality 296 (280-300) Lactic Acid 3.0 H (0.5-2.2) mmol/L Calcium 9.2 (8.6-10.8) mg/dL Troponin I (0-0.03) ng/mL B-Natriuretic Peptide (0-100) pg/mL 01/08/17 01/08/17 Range/Units 12:57 12:57 WBC (4.3-11.1) K/mcL RBC (4.19-5.50) M/mcL Hgb (12.9-16.9) g/dL Hct (37.5-50.1) % MCV (83.0-100.0) fL MCH (28.0-33.3) pg MCHC (31.6-35.5) g/dL RDW (11.5-14.5) % Plt Count (140-400) K/mcL MPV (9.4-12.4) fL Immature Gran % (0-4) % Seg Neutrophils % % Lymphocytes % % Monocytes % % Eosinophils % % Basophils % % Neutrophils # (1.6-8.9) K/mcL Lymphocytes # (0.6-4.6) K/mcL Monocytes # (0.0-1.3) K/mcL Eosinophils # (0.0-0.6) K/mcL Basophils # (0.0-0.2) K/mcL Sodium (136-145) mEq/L Potassium (3.5-4.5) mEq/L Chloride (98-109) mEq/L Carbon Dioxide (19-29) mEq/L BUN (8-26) mg/dL Creatinine (0.72-1.25) mg/dL Est GFR ( Amer) (> 60) Est GFR (Non-Af Amer) (> 60) BUN/Creatinine Ratio (6-26) Glucose (70-99) mg/dL Calculated Osmolality (280-300) Lactic Acid (0.5-2.2) mmol/L Calcium (8.6-10.8) mg/dL Troponin I 0.00 (0-0.03) ng/mL B-Natriuretic Peptide 12 (0-100) pg/mL - EKG Data EKG attestation: Yes I reviewed and interpreted this EKG. EKG shows normal: Reports: sinus rhythm Rate: Reports: tachycardia Rhythm: Reports: NSR When compared to previous EKG there are: no significant changes (12/11/2016) Interpretation: Reports: no acute changes
[2017-01-08 13:17] LABS: Basophils # 0.1 K/mcL (0.0-0.2); Basophils % 0.6 %; Eosinophils # 0.3 K/mcL (0.0-0.6); Eosinophils % 2.3 %; Hematocrit 40.4 % (37.5-50.1); Hemoglobin 13.6 g/dL (12.9-16.9); Immature Granulocytes % 0.6 % (0-4); Lymphocytes # 2.8 K/mcL (0.6-4.6); Lymphocytes % 25.8 %; Mean Corpuscular HGB Conc 33.7 g/dL (31.6-35.5); Mean Corpuscular Hemoglobin 31.6 pg (28.0-33.3); Monocytes % 9.6 %; Neutrophils # 6.6 K/mcL (1.6-8.9); Platelet Count 352 K/mcL (140-400); Red Cell Distribution Width 12.7 % (11.5-14.5); Segmented Neutrophils % 61.1 %
[2017-01-08 13:28] LABS: BUN/Creatinine Ratio 13 (6-26); Blood Urea Nitrogen 13 mg/dL (8-26); Calcium 9.2 mg/dL (8.6-10.8); Carbon Dioxide 27 mEq/L (19-29); Chloride 103 mEq/L (98-109); Glucose 206 mg/dL (70-99); Osmolality,Calculated 296 (280-300); Potassium 3.1 mEq/L (3.5-4.5); Sodium 140 mEq/L (136-145); eGFR For African Americans > 60 (> 60); eGFR For Non-African Americans > 60 (> 60)
[2017-01-08] MEDS ORDERED: Levofloxacin 750 MG/150 ML 750 MG/150 ML BAG IVPB ONE (14:16)
[2017-01-08] MEDS ORDERED: Naloxone 0.4 MG/ML INJ IVP PRN (16:41)
[2017-01-08] MEDS ORDERED: D5% in Water 1,000 ML IV PRN (16:42)
[2017-01-08] MEDS ORDERED: *HR* Dextrose 50 % in Water (Syg) 50 ML SYRINGE IVP PRN (16:42)
[2017-01-08] MEDS ORDERED: Albuterol 2.5 MG/3 ML NEBULIZER IH PRN (16:42)
[2017-01-08] MEDS ORDERED: Dextrose Gel 15 GM PO PRN ×2 (16:42)
[2017-01-08] MEDS ORDERED: cloNIDine HCl 0.1 MG TABLET PO PRN (16:43)
[2017-01-08] MEDS ORDERED: Ibuprofen 800 MG TABLET PO PRN (16:43)
--- NOTE | 2017-01-08 16:59 | Internal Med History&Physical ---
<Mike Collins - Last Filed: 01/08/17 19:46> Date of Encounter: 01/08/17 Internal Medicine - H&P: HPI History of present illness: Mr. David is a 56 year old male Internal Medicine - H&P: Meds Albuterol Neb [Proventil Neb] 2.5 mg IH Q4H PRN 11/01/16 [History] Albuterol Sulfate [Albuterol Inhaler] 2 puff IH Q4H PRN 11/01/16 [History] Baclofen [Lioresal] 10 mg PO TID PRN 11/01/16 [History] Budesonide/Formoterol 160/4.5 [Symbicort 160/4.5] 2 puff IH BID 11/01/16 [ History] Cetirizine HCl [All Day Allergy] 10 mg PO DAILY 11/01/16 [History] CloNIDine HCl [Clonidine HCl] 0.2 mg PO DAILY PRN 11/01/16 [History] Dicyclomine [Bentyl] 10 mg PO TID PRN 11/01/16 [History] Escitalopram [Lexapro] 20 mg PO QPM 11/01/16 [History] Fluticasone Propionate Nasal [Flonase] 100 mcg NS DAILY 11/01/16 [History] Montelukast [Singulair] 10 mg PO QPM 11/01/16 [History] Oxycodone HCl/Acetaminophen [Percocet 7.5-325 mg Tablet] 1 tab PO Q4H PRN [History] Ranitidine HCl [Zantac] 300 mg PO QAM 11/01/16 [History] Simvastatin [Zocor] 40 mg PO HS 11/01/16 [History] Metformin [Glucophage] 500 mg PO BIDWM #30 tablet 11/06/16 [Rx] BuPROPion SR (12 HR) [Wellbutrin SR] 150 mg PO DAILY 01/08/17 [History] Furosemide [Lasix] 40 mg PO DAILY 01/08/17 [History] Ibuprofen [Ibuprofen] 800 mg PO TID PRN 01/08/17 [History] Omeprazole [PriLOSEC] 20 mg PO DAILY 01/08/17 [History] Allergies latex Allergy (Verified 11/01/16 17:44) Rash morphine Adverse Reaction (Verified 11/01/16 19:22) Vomiting All Systems PM: A 10-system review of systems was performed and is negative for pertinent findings except as documented above in the HPI. - Constitutional Vitals: Temp Pulse Resp BP Pulse Ox 97.8 F 72 18 117/74 94 L 01/08/17 19:21 01/08/17 19:21 01/08/17 19:21 01/08/17 19:21 01/08/17 19:21 Internal Med - H&P Results - Labs CBC & Chem 7: 01/08/17 12:57 01/08/17 12:57 Labs: Urine 01/08/17 Range/Units 17:48 Urine Color Dark Yellow (Yellow) Urine Clarity Clear (Clear) Urine pH 6.0 (5.0-8.0) pH Units Ur Specific [place] > 1.030 H (1.010-1.025) Urine Protein 30 H (Neg-Trace) mg/dL Urine Glucose (UA) 100 H (Normal) mg/dL - Attending Attestation I examined this patient and my medical decision-making was reviewed with the Advanced Practice Provider. I agree with the documented findings, disposition and treatment plan as described except to the extent set forth below. The patient presented to the hospital for shortness of breath. He denies pleuritic chest pain, productive cough and subjective fevers and chills. On exam he has bilateral expiratory wheezes. Heart is regular. Chest x-ray reveals no infiltrate. We will treat him for COPD exacerbation with IV steroids and inhaled bronchodilators. He will need to be qualified for home oxygen. Likely discharge tomorrow. We will obtain a CT of the chest without contrast to better define his parenchymal disease. <Stephie Guzman - Last Filed: 01/08/17 22:20> Date of Encounter: 01/08/17 Time of Encounter: 16:55 Assessment and Plan (1) Acute exacerbation of chronic obstructive airways disease Current visit: Yes Status: Acute Patient with increased shortness of breath and cough. On exam, patient with diffuse wheezes and rhonchi. Patient follows with pulmonology as an outpatient, and had a CT Chest scheduled for tomorrow. Will obtain CT of the chest and Consult pulmonology. duoneb treatments QIDR albuterol nebulizers Q2hr PRN Levaquin IVPB daily Solumedrol 80mg IVP BID titrate O2 to maintain oxygen saturation > 90%. (2) Type 2 diabetes mellitus Current visit: Yes Status: Acute Controlled as evidenced by 6.7% on 11/01/16 Diabetic diet check blood sugars ACHS Sliding scale correction dose ACHS hypoglycemic protocol. Qualifiers: Diabetes mellitus complication status: with unspecified complications Diabetes mellitus terminal make up operator insulin use: without usp use Qualified Code( s): E11.8 - Type 2 diabetes mellitus with unspecified complications (3) Morbid obesity Current visit: No Status: Chronic Weight loss advised. Qualifiers: Obesity type: due to excess calories Qualified Code(s): E66.01 - Morbid ( severe) obesity due to excess calories (4) DANYELLE (obstructive sleep apnea) Current visit: No Status: Chronic CPAP ordered nightly Respiratory consult. (5) DVT prophylaxis Current visit: No Status: Acute Encourage ambulation anti-embolic stockings Lovenox 40mg SQ daily (6) Hypokalemia Current visit: Yes Status: Acute Potassium of 3.1. 20mEq Potassium Citrate PO X2 Recheck chemistry in the morning. Internal Medicine - H&P: HPI Chief complaint: shortness of breath Admitted From: Emergency Dept Plans for Post Hospital Care: Home History of present illness: Mr. David is a 56 year old male with hypertension, type 2 diabetes, CHF, COPD who presented to the ED with worsening shortness of breath. He reports he was hospitalized in October with pneumonia and has been following with pulmonology as an outpatient. He reports he has continued to have shortness of breath and cough on and off and increasing since his discharge, and has had several rounds of azithromycin and steroids, which do not seem to help. He does not wear oxygen at home, but is requiring 2L of Oxygen by [place] today to maintain his saturation. He reports his cough is non-productive. He has chest tightness with coughing and when taking deep breaths. He denies any fever or chills, but reports sweats. He reports occasional lightheadedness, which has improved with changes to his medications. He denies any nausea, vomiting, abdominal pain. Evaluation in the ED included a chest xray which showed no acute cardiopulmonary abnormality. EKG showed normal sinus rhythm with tachycardia. WBC was normal at 10.8. He had hypokalemia with potassium of 3.1. He was hyperglycemic with glucose of 206. Troponin was negative at 0.0. Lactic acid was elevated at 3.0. He was mildly tachycardic with HR ranging 88-118, and mildly tachypnic with RR 18-24. On exam, heart had regular rate and rhythm, lungs were diffusely wheezy and rhonchorus. Past Med Surg Social Fam HX - Past Medical History Medical history: arthritis, asthma, COPD, diabetes, hypertension Psychiatric history: no psych history - Past Surgical History Surgical History: knee replacement, sinus surgery - Social History Smoking Status: Former smoker (20 pack year history) Smokeless Tobacco Status: No Alcohol use: none Drug use: none - Family History Father Hx Family Cardiac Disorders: Yes Mother Living Status: Still Living Hx Family Cardiac Disorders: Yes Brother Living Status: Still Living Hx Family Endocrine Disorder: Yes (Endocrine) All Systems PM: A 10-system review of systems was performed and is negative for pertinent findings except as documented above in the HPI. - Constitutional Constitutional: night sweats, no chills, no fever(s) - EENT Eyes: no change in vision, no discharge, no pain, no photophobia Ears: no ear discharge, no ear pain, no tinnitus Nose, mouth and throat: no dysphagia, no nasal discharge, no neck pain, no sore throat - Cardiovascular Cardiovascular ROS IM: dyspnea, lightheadedness, no chest pain, no diaphoresis, no palpitations, no syncope - Respiratory Respiratory: cough, dyspnea, wheezing, pain on inspiration, pain with cough, no excessive phlegm production - Gastrointestinal Gastrointestinal: no abdominal pain, no diarrhea, no hematemesis, no hematochezia, no melena, no nausea, no vomiting - Musculoskeletal Musculoskeletal ROS IM: no numbness, no tingling - Integumentary Integumentary IM: no rash, no unusual bruising - Neurological Neurological ROS: no confusion, no convulsions, no focal weakness, no numbness, no tingling, no tremor(s) - Hematologic/Lymphatic Hematologic/Lymphatic: no easy bruising - Constitutional Vitals: Temp Pulse Resp BP Pulse Ox 97.4 F L 95 20 148/78 95 01/08/17 15:27 01/08/17 15:27 01/08/17 15:27 01/08/17 15:27 01/08/17 15:27 General appearance: Present: A&O X 3, morbidly obese, pleasant - Head Head exam: Present: atraumatic, normocephalic - Eye Eye exam: Present: PERRL, conjuntiva pink, sclera anicteric Pupils: Present: PERRL - Neck Neck exam general surgery: Present: supple, trachea midline. Absent: lymphadenopathy - Respiratory Respiratory exam: Present: rhonchi, wheezes. Absent: accessory muscle use, rales - Cardiovascular Cardiovascular exam: Present: RRR, +S1, +S2. Absent: diastolic murmur, gallop, rubs, systolic murmur - GI/Abdominal GI/Abdominal exam: Present: normal bowel sounds, soft, no peritoneal signs. Absent: distended, tenderness - Extremities Exam Extremities exam: Present: warm, radial pulses palpable and symetrical. Absent : calf tenderness, cyanotic, pedal edema - Neurological Exam Neurological exam: Present: CN II-XII intact, oriented X3, no focal deficits. Absent: facial droop, speech deficit - Skin Skin exam: Present: dry, intact Internal Med - H&P Results - Labs CBC & Chem 7: 01/08/17 12:57 01/08/17 12:57 Labs: All Lab Results (24 Hours) 01/08/17 01/08/17 01/08/17 Range/Units 12:57 12:57 12:57 WBC 10.8 (4.3-11.1) K/mcL RBC 4.30 (4.19-5.50) M/mcL Hgb 13.6 (12.9-16.9) g/dL Hct 40.4 (37.5-50.1) % MCV 94.0 (83.0-100.0) fL MCH 31.6 (28.0-33.3) pg MCHC 33.7 (31.6-35.5) g/dL RDW 12.7 (11.5-14.5) % Plt Count 352 (140-400) K/mcL MPV 9.0 L (9.4-12.4) fL Immature Gran % 0.6 (0-4) % Seg Neutrophils % 61.1 % Lymphocytes % 25.8 % Monocytes % 9.6 % Eosinophils % 2.3 % Basophils % 0.6 % Neutrophils # 6.6 (1.6-8.9) K/mcL Lymphocytes # 2.8 (0.6-4.6) K/mcL Monocytes # 1.0 (0.0-1.3) K/mcL Eosinophils # 0.3 (0.0-0.6) K/mcL Basophils # 0.1 (0.0-0.2) K/mcL Sodium 140 (136-145) mEq/L Potassium 3.1 L (3.5-4.5) mEq/L Chloride 103 (98-109) mEq/L Carbon Dioxide 27 (19-29) mEq/L BUN 13 (8-26) mg/dL Creatinine 0.98 (0.72-1.25) mg/dL Est GFR ( Amer) > 60 (> 60) Est GFR (Non-Af Amer) > 60 (> 60) BUN/Creatinine Ratio 13 (6-26) Glucose 206 H (70-99) mg/dL Calculated Osmolality 296 (280-300) Lactic Acid 3.0 H (0.5-2.2) mmol/L Calcium 9.2 (8.6-10.8) mg/dL Troponin I (0-0.03) ng/mL B-Natriuretic Peptide (0-100) pg/mL 01/08/17 01/08/17 Range/Units 12:57 12:57 WBC (4.3-11.1) K/mcL RBC (4.19-5.50) M/mcL Hgb (12.9-16.9) g/dL Hct (37.5-50.1) % MCV (83.0-100.0) fL MCH (28.0-33.3) pg MCHC (31.6-35.5) g/dL RDW (11.5-14.5) % Plt Count (140-400) K/mcL MPV (9.4-12.4) fL Immature Gran % (0-4) % Seg Neutrophils % % Lymphocytes % % Monocytes % % Eosinophils % % Basophils % % Neutrophils # (1.6-8.9) K/mcL Lymphocytes # (0.6-4.6) K/mcL Monocytes # (0.0-1.3) K/mcL Eosinophils # (0.0-0.6) K/mcL Basophils # (0.0-0.2) K/mcL Sodium (136-145) mEq/L Potassium (3.5-4.5) mEq/L Chloride (98-109) mEq/L Carbon Dioxide (19-29) mEq/L BUN (8-26) mg/dL Creatinine (0.72-1.25) mg/dL Est GFR ( Amer) (> 60) Est GFR (Non-Af Amer) (> 60) BUN/Creatinine Ratio (6-26) Glucose (70-99) mg/dL Calculated Osmolality (280-300) Lactic Acid (0.5-2.2) mmol/L Calcium (8.6-10.8) mg/dL Troponin I 0.00 (0-0.03) ng/mL B-Natriuretic Peptide 12 (0-100) pg/mL
[2017-01-08] MEDS ORDERED: Potassium Citrate 10 MEQ TABLET.ER PO SCH (17:45)
[2017-01-08] MEDS: Insulin LISPRO 300 UNITS/3 ML VIAL SQ SCH ×2 (18:00→21:28)
[2017-01-08] MEDS: methylPREDNISolone 125 MG/2 ML VIAL IVP SCH (18:01)
[2017-01-08 18:03] LABS: Bilirubin,Urine Negative (Negative); Blood,Urine Negative (Negative); Clarity,Urine Clear (Clear); Color,Urine Dark Yellow (Yellow); Glucose,Urine (UA) 100 mg/dL (Normal); Ketones,Urine Trace mg/dL (Negative); Leukocyte Esterase,Urine Negative (Negative); Nitrite,Urine Negative (Negative); Protein,Urine 30 mg/dL (Neg-Trace); Specific Gravity,Urine > 1.030 (1.010-1.025); Urobilinogen,Urine Normal (Normal)
[2017-01-08 18:05] LABS: Bacteria,Urine None Seen per hpf (None-Few); Hyaline Casts,Urine None Seen per lpf (None-Few); Squamous Epithelial Cell,Urine Many per lpf (None-Few); WBC,Urine 0-3 per hpf (0-3)
[2017-01-08] MEDS ORDERED: Potassium Citrate 10 MEQ TABLET.ER PO ONE (18:06)
[2017-01-08] MEDS: *HR* OxyCODONE/APAP 7.5/325 TABLET PO PRN (18:13)
[2017-01-08] MEDS: Ipratropium/Albuterol Neb 3 ML IH SCH ×2 (19:29→22:10)
[2017-01-08] MEDS: Budesonide/Formoterol 160/4.5 MDI IH SCH (19:43)
[2017-01-08] MEDS: Potassium Citrate 10 MEQ TABLET.ER PO SCH (21:28)
[2017-01-08] MEDS: Baclofen 10 MG TABLET PO PRN (21:32)
[2017-01-09] MEDS: *HR* OxyCODONE/APAP 7.5/325 TABLET PO PRN ×5 (00:04→21:02)
[2017-01-09] MEDS: Ipratropium/Albuterol Neb 3 ML IH SCH ×4 (03:27→21:28)
[2017-01-09] MEDS: Baclofen 10 MG TABLET PO PRN ×4 (04:07→21:01)
[2017-01-09] MEDS: methylPREDNISolone 125 MG/2 ML VIAL IVP SCH ×2 (06:07→17:10)
[2017-01-09] MEDS: *HR* Enoxaparin 40 MG/0.4 ML SYRINGE SQ SCH (06:07)
[2017-01-09] MEDS: Famotidine 20 MG TABLET PO SCH (06:07)
[2017-01-09 07:18] LABS: Basophils % 0.1 %; Hemoglobin 13.2 g/dL (12.9-16.9); Immature Granulocytes % 1.3 % (0-4); Lymphocytes # 1.1 K/mcL (0.6-4.6); Lymphocytes % 10.6 %; Mean Corpuscular HGB Conc 34.7 g/dL (31.6-35.5); Mean Corpuscular Hemoglobin 32.8 pg (28.0-33.3); Mean Corpuscular Volume 94.3 fL (83.0-100.0); Mean Platelet Volume 9.8 fL (9.4-12.4); Monocytes # 0.2 K/mcL (0.0-1.3); Monocytes % 2.2 %; Neutrophils # 8.9 K/mcL (1.6-8.9); Platelet Count 328 K/mcL (140-400); Red Blood Count 4.03 M/mcL (4.19-5.50); Red Cell Distribution Width 12.7 % (11.5-14.5); Segmented Neutrophils % 85.8 %
[2017-01-09 07:21] LABS: BUN/Creatinine Ratio 19 (6-26); Blood Urea Nitrogen 19 mg/dL (8-26); Carbon Dioxide 25 mEq/L (19-29); Chloride 103 mEq/L (98-109); Glucose 263 mg/dL (70-99); Osmolality,Calculated 301 (280-300); Potassium 3.9 mEq/L (3.5-4.5); Sodium 140 mEq/L (136-145); eGFR For African Americans > 60 (> 60); eGFR For Non-African Americans > 60 (> 60)
[2017-01-09] MEDS ORDERED: Tetracaine/Benzocaine/Butamben 200MG/SPRAY (100SPY/BOT) MM ONE (07:34)
[2017-01-09] MEDS ORDERED: *HR* EPINEPHrine 1 MG/10 ML SYRINGE INTRATRACH PRN (07:34)
[2017-01-09] MEDS ORDERED: *HR* Midazolam HCl 5 MG/5 ML VIAL IVP PRN (07:34)
--- NOTE | 2017-01-09 07:37 | Pre-Sedation Evaluation ---
Pre-sedation evaluation - Pre-sedation checklist Procedure: bronch Recent Vitals: Last Vital Signs Temp 97.6 F 01/08/17 23:47 Pulse 104 01/08/17 23:47 Resp 18 01/09/17 03:27 BP 142/72 01/08/17 23:47 Pulse Ox 95 01/09/17 03:27 H&P (including ROS) documented in medical record: Yes Previous reaction to sedatives/anesthetics: No Dietary Status: NPO after Midnight Airway Assessment: Patient can open mouth completely, TMJ function normal Dentition: poor dentition Possible difficult airway: Yes If Yes;: History of Obstructive Sleep Apnea ASA Classification *see protocol: CLASS III-Severe systemic disease Plan of Care: Pt appropriate candidate for procedure/moderate/conscious sedation , Risks/benefits of procedure/sedation discussed w/ patient/family
[2017-01-09] MEDS ORDERED: Ringers Solution, Lactated 1,000 ML IVC SCH (07:45)
--- NOTE | 2017-01-09 07:50 | Pulmonology Consult Note ---
Date of Encounter: 01/09/17 Time of Encounter: 07:46 Assessment and Plan (1) Right middle lobe syndrome Current Visit: Yes Status: Acute Recurrent collapse of right middle lobe unclear etiology likely cause of chronic inflammation and recurrent exacerbations of COPD. Will need aggressive airway clearance including Acapella therapy every 8 hours coupled with rhonchi dilators. Agree with antibiotics with complete course of 10 days of Levaquin. It would be appropriate for him to have 500 mg dosing of this medication daily. A bronchoscopy is recommended. The procedure , risks, benefits, complications, and expected outcomes have been reviewed. Benefits of diagnosis, as well as risks to include bleeding, infection, pneumothorax which may require surgical intervention, and in a small population. The patient is aware that sometimes test is nondiagnostic. Discussed with patient and agrees to proceed. (2) Acute exacerbation of chronic obstructive airways disease Current Visit: Yes Status: Acute Recommend continuation of steroids however would transition to enteral formulation*was prednisone 40 mg this can be tapered over 2 weeks and would actually leave patient on 5 mg of prednisone until follow-up in pulmonary clinic within 1 month at the time of discharge Agree with continued bronchodilators and attempt to deliver ipratropium/ albuterol every 6 hours as possible Continue patient's home medications including montelukast asked and Symbicort 2 puffs twice a day (3) DVT prophylaxis Current Visit: No Status: Acute Agree with chemical DVT prophylaxis while inpatient (4) Morbid obesity Current Visit: No Status: Chronic Weight loss through diet and exercise as tolerated was encouraged Qualifiers: Obesity type: due to excess calories Qualified Code(s): E66.01 - Morbid ( severe) obesity due to excess calories (5) DANYELLE (obstructive sleep apnea) Current Visit: No Status: Chronic Continue on nocturnal positive airway pressure History of Present Illness Consult date: 01/09/17 Requesting physician: Radha Sevilla Reason for consult: COPD Chief complaint: Shortness of breath History of present illness: This is a very pleasant 56-year-old gentleman well known to the pulmonary service as a clinic patient. He has a history of obstructive lung disease including COPD with features of asthma. Unfortunately he has had recurrent exacerbations over the last 3-[address] changes including chronic right middle lobe collapse. He underwent bronchoscopy approximately 2 months ago which was notable for the right middle lobe being obstructed with pus with evidence of underlying inflammation but without evidence of malignancy or specific microbiological organism that was identified he does not meet criteria for allergic bronchopulmonary aspergillosis. Unfortunately he has required several courses of antibiotics and steroids subsequent to this with temporary improvement however) to significant shortness of breath wheezing and fatigue which brought him into the emergency department yesterday. Since then he has received IV steroids and Levaquin with overall improvement in symptomatology. A CT scan of the chest was performed to further characterize lung parenchyma which is notable for recurrent collapse of the right middle lobe. In addition to the airways disease that is been described patient has a history of morbid obesity with obstructive sleep apnea along with clinical features of heart failure with preserved ejection fraction Past Med Surg Social Fam HX - Past Medical History Medical history: arthritis, asthma, COPD, diabetes, hypertension Psychiatric history: no psych history - Past Surgical History Surgical History: knee replacement, sinus surgery - Social History Smoking Status: Former smoker (20 pack year history) Smokeless Tobacco Status: No Alcohol use: none Drug use: none - Family History Father Hx Family Cardiac Disorders: Yes Mother Living Status: Still Living Hx Family Cardiac Disorders: Yes Brother Living Status: Still Living Hx Family Endocrine Disorder: Yes (Endocrine) Medications and Allergies Albuterol Neb [Proventil Neb] 2.5 mg IH Q4H PRN 11/01/16 [History] Albuterol Sulfate [Albuterol Inhaler] 2 puff IH Q4H PRN 11/01/16 [History] Baclofen [Lioresal] 10 mg PO TID PRN 11/01/16 [History] Budesonide/Formoterol 160/4.5 [Symbicort 160/4.5] 2 puff IH BID 11/01/16 [ History] Cetirizine HCl [All Day Allergy] 10 mg PO DAILY 11/01/16 [History] CloNIDine HCl [Clonidine HCl] 0.2 mg PO DAILY PRN 11/01/16 [History] Dicyclomine [Bentyl] 10 mg PO TID PRN 11/01/16 [History] Escitalopram [Lexapro] 20 mg PO QPM 11/01/16 [History] Fluticasone Propionate Nasal [Flonase] 100 mcg NS DAILY 11/01/16 [History] Montelukast [Singulair] 10 mg PO QPM 11/01/16 [History] Oxycodone HCl/Acetaminophen [Percocet 7.5-325 mg Tablet] 1 tab PO Q4H PRN [History] Ranitidine HCl [Zantac] 300 mg PO QAM 11/01/16 [History] Simvastatin [Zocor] 40 mg PO HS 11/01/16 [History] Metformin [Glucophage] 500 mg PO BIDWM #30 tablet 11/06/16 [Rx] BuPROPion SR (12 HR) [Wellbutrin SR] 150 mg PO DAILY 01/08/17 [History] Furosemide [Lasix] 40 mg PO DAILY 01/08/17 [History] Ibuprofen [Ibuprofen] 800 mg PO TID PRN 01/08/17 [History] Omeprazole [PriLOSEC] 20 mg PO DAILY 01/08/17 [History] Allergies latex Allergy (Verified 11/01/16 17:44) Rash morphine Adverse Reaction (Verified 11/01/16 19:22) Vomiting All Systems: A 10-system review of systems was performed and is negative for pertinent findings except as documented above in the HPI. Physical Examination General appearance: no acute distress Eyes: nonicteric ENT: oropharynx moist Effort: normal Auscultation: bilateral: clear, diminished breath sounds Cardiovascular: regular rate and rhythm Gastrointestinal: normoactive bowel sounds, non-tender Integumentary: normal Extremities: no edema Musculoskeletal: no deformities normal mental status, non-focal exam mood appropriate Results - Laboratory Findings CBC and BMP: 01/09/17 06:38 01/09/17 06:38 Abnormal lab findings: Abnormal lab results RBC 4.03 M/mcL (4.19-5.50) L 01/09/17 06:38 Glucose 263 mg/dL (70-99) H 01/09/17 06:38 POC Glucose 303 (58-89) H 01/08/17 21:08 Calculated Osmolality 301 (280-300) H 01/09/17 06:38 Lactic Acid 3.0 mmol/L (0.5-2.2) H 01/08/17 12:57 Ur Specific [place] > 1.030 (1.010-1.025) H 01/08/17 17:48 Urine Protein 30 mg/dL (Neg-Trace) H 01/08/17 17:48 Urine Glucose (UA) 100 mg/dL (Normal) H 01/08/17 17:48 Urine Ketones Trace mg/dL (Negative) H 01/08/17 17:48 Urine Microscopic RBC 3-5 per hpf (0-3) H 01/08/17 17:48 Ur Squamous Epith Cells Many per lpf (None-Few) H 01/08/17 17:48 - Diagnostic Findings Chest x-ray: report reviewed, image reviewed CT scan - chest: report reviewed, image reviewed - Clinical Findings Intake & Output: Intake & Output 01/08/17 01/08/17 01/09/17 15:59 23:59 07:59 Intake Total 150 / 150 Balance 150 / 150 Weight 161.932 kg Consult Discharge Plan - Plan Referrals: Torie Crespo, WATER SUPERVISOR [Primary Care Provider] -
[2017-01-09] MEDS: Insulin LISPRO 300 UNITS/3 ML VIAL SQ SCH ×4 (08:02→21:02)
[2017-01-09] MEDS: Potassium Citrate 10 MEQ TABLET.ER PO SCH ×2 (08:03→21:01)
[2017-01-09] MEDS: Loratadine 10 MG TABLET PO SCH (08:03)
[2017-01-09] MEDS: Furosemide 40 MG TABLET PO SCH (08:03)
[2017-01-09] MEDS: BuPROPion SR (12 HR) 150 MG TABLET PO SCH (08:03)
[2017-01-09] MEDS: Fluticasone Propionate Nasal 50 MCG/SPRAY BOTTLE NS SCH (08:03)
[2017-01-09] MEDS: Acetaminophen 325 MG TABLET PO PRN (08:46)
[2017-01-09] MEDS ORDERED: Ibuprofen 800 MG TABLET PO PRN (10:11)
[2017-01-09] MEDS: Budesonide/Formoterol 160/4.5 MDI IH SCH ×2 (10:40→21:28)
--- NOTE | 2017-01-09 10:42 | Internal Med Progress Note ---
Date of Encounter: 01/09/17 Time of Encounter: 08:45 - Assessment and plan (1) Acute exacerbation of chronic obstructive airways disease Current Visit: Yes Status: Acute Assessment and plan: Patient stating his shortness of breath has improved overnight since admission. Levaquin changed to 500 mg daily per pulmonology recommendation. Pulmonology on board, plan is for bronchoscopy later today. Patient is currently tolerating room air. Chest x-ray negative. Chest CTA revealing stable collapse of right middle lobe. ITS Impressions Chest X-Ray 01/08/17 12:46 IMPRESSION: No acute cardiopulmonary abnormality. D/ / Dong Bryan MD / Dong Bryan MD Interpreting Provider: Dong Bryan MD Chest CT 01/08/17 17:18 IMPRESSION: Stable collapse of right middle lobe. Question of some material within right middle lobe lobar and segmental bronchi. Patient may benefit from bronchoscopy. D/ / 01/09/2017 07:50:02 Deo Solomon MD / tom Interpreting Provider: Deo Solomon MD (2) Right middle lobe syndrome Current Visit: Yes Status: Acute Assessment and plan: Pulmonology on board, plan is for bronchoscopy today (3) Diastolic heart failure Current Visit: Yes Status: Chronic Assessment and plan: Echocardiogram from October 2016 reviewed and revealed an ejection fraction of 55% with moderate diastolic dysfunction. Patient is on furosemide at home. Chronic diastolic heart failure. No acute exacerbation. Patient appears euvolemic on examination. We will stop his IV fluids after his bronchoscopy. (4) Hypokalemia Current Visit: Yes Status: Resolved (5) DVT prophylaxis Current Visit: No Status: Acute Assessment and plan: Subcutaneous Lovenox (6) Diabetes Current Visit: No Status: Chronic Assessment and plan: Controlled at home with an A1c in October of 6.7%. Continue sliding scale while admitted (7) HTN (hypertension) Current Visit: No Status: Chronic Assessment and plan: Controlled. At home, patient is on furosemide 40 mg daily and clonidine 0.2 mg daily as needed; continued. Qualifiers: Hypertension type: essential hypertension Qualified Code(s): I10 - Essential (primary) hypertension (8) DANYELLE (obstructive sleep apnea) Current Visit: No Status: Chronic Assessment and plan: CPAP at night (9) Morbid obesity with BMI of 45.0-49.9, adult Current Visit: Yes Status: Chronic - Subjective Interval history: Patient seen and examined. On examination, patient resting on his side in bed. Patient stating he feels tired but feels better than he did yesterday. He states his shortness of breath has improved slightly overnight. He denies further concerns. - Constitutional Vitals: Temp Pulse Resp BP Pulse Ox 97.7 F 74 20 148/71 96 01/09/17 07:49 01/09/17 07:49 01/09/17 07:49 01/09/17 07:49 01/09/17 07:49 General appearance: Present: A&O X 3, morbidly obese, pleasant, no acute distress, answers questions appropriately - Head Head exam: Present: atraumatic, normocephalic - Eye Eye exam: Present: PERRL, conjuntiva pink, sclera anicteric Pupils: Present: PERRL - Neck Neck exam general surgery: Present: supple, trachea midline. Absent: lymphadenopathy - Respiratory Respiratory exam: Present: decreased breath sounds (RLL). Absent: accessory muscle use, rales, respiratory distress, rhonchi, wheezes - Cardiovascular Cardiovascular exam: Present: RRR, +S1, +S2. Absent: diastolic murmur, gallop, rubs, systolic murmur - GI/Abdominal GI/Abdominal exam: Present: distended, normal bowel sounds, soft, no peritoneal signs. Absent: tenderness - Extremities Exam Extremities exam: Present: warm, radial pulses palpable and symetrical. Absent : calf tenderness, cyanotic, pedal edema - Neurological Exam Neurological exam: Present: alert, CN II-XII intact, normal gait, oriented X3, no focal deficits, strengths equal and symetr throughout. Absent: pronater drift, facial droop, speech deficit - Skin Skin exam: Present: dry, intact, pallor, warm Internal Medicine: Result - Labs CBC & Chem 7: 01/09/17 06:38 01/09/17 06:38 Labs: Short CBC 01/09/17 Range/Units 06:38 WBC 10.4 (4.3-11.1) K/mcL Hgb 13.2 (12.9-16.9) g/dL Hct 38.0 (37.5-50.1) % Plt Count 328 (140-400) K/mcL Neutrophils # 8.9 (1.6-8.9) K/mcL BMP 01/09/17 06:38 Sodium 140 Potassium 3.9 Chloride 103 Carbon Dioxide 25 BUN 19 Creatinine 0.99 Glucose 263 H Calcium 9.0 Urine 01/08/17 Range/Units 17:48 Urine Color Dark Yellow (Yellow) Urine Clarity Clear (Clear) Urine pH 6.0 (5.0-8.0) pH Units Ur Specific [place] > 1.030 H (1.010-1.025) Urine Protein 30 H (Neg-Trace) mg/dL Urine Glucose (UA) 100 H (Normal) mg/dL - Impressions Impressions Chest CT 01/08/17 17:18 IMPRESSION: Stable collapse of right middle lobe. Question of some material within right middle lobe lobar and segmental bronchi. Patient may benefit from bronchoscopy. D/ / 01/09/2017 07:50:02 Deo Solomon MD / tom Interpreting Provider: Deo Solomon MD Consult Discharge Plan - Plan Referrals: Torie Crespo CNP [Primary Care Provider] -
[2017-01-09] MEDS ORDERED: Lidocaine Viscous Oral Soln 15 ML SOLUTION ONE (10:45)
[2017-01-09] MEDS ORDERED: *HR* FentaNYL (PF) 100 MCG/2 ML VIAL ONE (10:45)
[2017-01-09] MEDS ORDERED: *HR* Midazolam HCl 5 MG/5 ML VIAL IVP ONE (10:45)
[2017-01-09] MEDS: *HR* FentaNYL (PF) 100 MCG/2 ML VIAL IVP PRN ×2 (11:35→20:01)
[2017-01-09] MEDS ORDERED: 0.9 % Sodium Chloride 500 ML IVC SCH (11:45)
[2017-01-09] MEDS: Levofloxacin 500 MG/100 ML 500 MG/100 ML BAG IVPB SCH (13:20)
--- NOTE | 2017-01-09 13:47 | Electrocardiograph Report ---
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
[2017-01-09] MEDS ORDERED: Levofloxacin 750 MG/150 ML 750 MG/150 ML BAG IVPB SCH (14:00)
[2017-01-09 14:43] LABS: Appearance of Body Fluid Cloudy (Clear); Volume of Body Fluid 20 mL
[2017-01-10] MEDS: Ipratropium/Albuterol Neb 3 ML IH SCH ×2 (03:36→11:11)
[2017-01-10] MEDS: Famotidine 20 MG TABLET PO SCH (06:12)
[2017-01-10] MEDS: *HR* OxyCODONE/APAP 7.5/325 TABLET PO PRN ×2 (06:12→12:20)
[2017-01-10] MEDS: methylPREDNISolone 125 MG/2 ML VIAL IVP SCH (06:12)
[2017-01-10] MEDS: *HR* Enoxaparin 40 MG/0.4 ML SYRINGE SQ SCH (06:12)
--- NOTE | 2017-01-10 07:28 | Pulmonology Progress Note ---
Date of Encounter: 01/10/17 Time of Encounter: 07:26 Assessment and Plan (1) Right middle lobe syndrome Current Visit: Yes Status: Acute Status post bronchoscopy yesterday which showed near occlusion of right middle lobe secondary to mucus/inflammation no obstructing lesions BAL and both cytology and protected brushings were taking from that area results would not frame changer that is currently underway -Continue airway clearance 3 times a day coupled with nebulized Bronchodilators -Continue antimicrobials (Levaquin 500 mg) 10 days - Continue steroid taper to 5 mg which would continue until patient follows up in clinic within 3-4 weeks (2) Acute exacerbation of chronic obstructive airways disease Current Visit: Yes Status: Acute Agree with current management okay to return to home metered-dose inhalers coupled with nebulizers with airway clearance as outlined along with steroid taper (3) DVT prophylaxis Current Visit: No Status: Acute (4) Morbid obesity Current Visit: No Status: Chronic Qualifiers: Obesity type: due to excess calories Qualified Code(s): E66.01 - Morbid ( severe) obesity due to excess calories (5) DANYELLE (obstructive sleep apnea) Current Visit: No Status: Chronic Return to home positive airway pressure use From pulmonary perspective no impediment to discharge follow-up in pulmonary clinic within 3-4 weeks Thank you very much for the consultation Subjective Principal diagnosis: Shortness of breath Interval history: Patient did well overnight and has had difficulty sleeping with positive airway pressure mask provided for him at the hospital complaining of high leak and very noisy machine. Otherwise has felt much better since admission cough has improved as has his shortness of breath/wheezing No untoward effects post bronchoscopy Objective PUL Vital signs: Last Vital Signs Temp 97.7 F 01/10/17 07:25 Pulse 78 01/10/17 07:25 Resp 18 01/10/17 07:25 BP 145/78 01/10/17 07:25 Pulse Ox 96 01/10/17 07:25 General appearance: no acute distress Eyes: nonicteric Neck: supple Effort: normal Auscultation: bilateral: wheezes (Very faint end-expiratory) Cardiovascular: regular rate and rhythm Gastrointestinal: normoactive bowel sounds Integumentary: normal Extremities: no cyanosis, no edema Musculoskeletal: no deformities normal mental status, non-focal exam mood appropriate Results - Laboratory Findings CBC and BMP: 01/09/17 06:38 01/09/17 06:38 Abnormal lab findings: Abnormal lab results RBC 4.03 M/mcL (4.19-5.50) L 01/09/17 06:38 Glucose 263 mg/dL (70-99) H 01/09/17 06:38 POC Glucose 268 (58-89) H 01/09/17 19:56 Calculated Osmolality 301 (280-300) H 01/09/17 06:38 Lactic Acid 3.0 mmol/L (0.5-2.2) H 01/08/17 12:57 Ur Specific [place] > 1.030 (1.010-1.025) H 01/08/17 17:48 Urine Protein 30 mg/dL (Neg-Trace) H 01/08/17 17:48 Urine Glucose (UA) 100 mg/dL (Normal) H 01/08/17 17:48 Urine Ketones Trace mg/dL (Negative) H 01/08/17 17:48 Urine Microscopic RBC 3-5 per hpf (0-3) H 01/08/17 17:48 Ur Squamous Epith Cells Many per lpf (None-Few) H 01/08/17 17:48 Fluid Appearance Cloudy (Clear) A 01/09/17 12:05 - Clinical Findings Intake & Output: Intake & Output 01/09/17 01/09/17 01/10/17 15:59 23:59 07:59 Intake Total 100 / 100 Balance 100 / 100 Weight 163.435 kg Consult Discharge Plan - Plan Referrals: Torie Crespo, MEDICAL RECEPTIONIST ASSISTANT [Primary Care Provider] -
[2017-01-10] MEDS: Potassium Citrate 10 MEQ TABLET.ER PO SCH (08:00)
[2017-01-10] MEDS: BuPROPion SR (12 HR) 150 MG TABLET PO SCH (08:00)
[2017-01-10] MEDS: Furosemide 40 MG TABLET PO SCH (08:00)
[2017-01-10] MEDS: Fluticasone Propionate Nasal 50 MCG/SPRAY BOTTLE NS SCH (08:01)
[2017-01-10] MEDS: Insulin LISPRO 300 UNITS/3 ML VIAL SQ SCH ×2 (08:02→12:19)
[2017-01-10] MEDS: Loratadine 10 MG TABLET PO SCH (08:02)
[2017-01-10] MEDS: Acetaminophen 325 MG TABLET PO PRN (08:08)
[2017-01-10] MEDS: Budesonide/Formoterol 160/4.5 MDI IH SCH (11:11)
[2017-01-10] MEDS: Levofloxacin 500 MG/100 ML 500 MG/100 ML BAG IVPB SCH (12:19)
[2017-01-10] MEDS: Baclofen 10 MG TABLET PO PRN (12:20)
--- NOTE | 2017-01-10 13:58 | Discharge Summary ---
<Li Granados - Last Filed: 01/10/17 14:50> Date of Encounter: 01/10/17 Time of Encounter: 10:30 - Discharge Diagnosis (1) Acute exacerbation of chronic obstructive airways disease Priority: Primary Status: Acute (2) Right middle lobe syndrome Priority: Primary Status: Acute (3) Diastolic heart failure Priority: Secondary Status: Chronic Qualifiers: Heart failure chronicity: chronic Qualified Code(s): I50.32 - Chronic diastolic (congestive) heart failure (4) Hypokalemia Priority: Secondary Status: Resolved (5) Type 2 diabetes mellitus Priority: Secondary Status: Acute Qualifiers: Diabetes mellitus complication status: with unspecified complications Diabetes mellitus exterminator helper insulin use: without exterminator helper use Qualified Code( s): E11.8 - Type 2 diabetes mellitus with unspecified complications (6) HTN (hypertension) Priority: Secondary Status: Chronic Qualifiers: Hypertension type: essential hypertension Qualified Code(s): I10 - Essential (primary) hypertension (7) DANYELLE (obstructive sleep apnea) Priority: Secondary Status: Chronic (8) Morbid obesity with BMI of 45.0-49.9, adult Priority: Secondary Status: Chronic (9) DVT prophylaxis Status: Acute - Discharge Medications Prescriptions: Albuterol Neb [Proventil Neb] 2.5 mg IH Q4H PRN #1 inhsol PRN Reason: Shortness Of Breath/Wheezing BuPROPion SR (12 HR) [Wellbutrin SR] 150 mg PO DAILY #30 tablet.er Budesonide/Formoterol 160/4.5 [Symbicort 160/4.5] 2 puff IH BID #1 inhaler Dicyclomine [Bentyl] 10 mg PO TID PRN #90 capsule PRN Reason: Abdominal Pain Escitalopram [Lexapro] 20 mg PO QPM #30 tablet Ibuprofen 800 mg PO TID PRN #90 tablet PRN Reason: Pain Levofloxacin 500 mg PO DAILY #8 solution Potassium Citrate [Urocit-K] 20 meq PO DAILY #14 tablet.er PredniSONE [Prednisone] 5 mg PO DAILY #20 tab PredniSONE 20 mg PO AD #15 tablet Simvastatin [Zocor] 40 mg PO HS #30 tablet Home Medications: Albuterol Sulfate [Albuterol Inhaler] 2 puff IH Q4H PRN 11/01/16 [History] Baclofen [Lioresal] 10 mg PO TID PRN 11/01/16 [History] Cetirizine HCl [All Day Allergy] 10 mg PO DAILY 11/01/16 [History] CloNIDine HCl [Clonidine HCl] 0.2 mg PO DAILY PRN 11/01/16 [History] Fluticasone Propionate Nasal [Flonase] 100 mcg NS DAILY 11/01/16 [History] Montelukast [Singulair] 10 mg PO QPM 11/01/16 [History] Oxycodone HCl/Acetaminophen [Percocet 7.5-325 mg Tablet] 1 tab PO Q4H PRN [History] Ranitidine HCl [Zantac] 300 mg PO QAM 11/01/16 [History] Metformin [Glucophage] 500 mg PO BIDWM #30 tablet 11/06/16 [Rx] Furosemide [Lasix] 40 mg PO DAILY 01/08/17 [History] Omeprazole [PriLOSEC] 20 mg PO DAILY 01/08/17 [History] Albuterol Neb [Proventil Neb] 2.5 mg IH Q4H PRN #1 inhsol 01/10/17 [Rx] BuPROPion SR (12 HR) [Wellbutrin SR] 150 mg PO DAILY #30 tablet.er 01/10/17 [Rx] Budesonide/Formoterol 160/4.5 [Symbicort 160/4.5] 2 puff IH BID #1 inhaler 01/10 [Rx] Dicyclomine [Bentyl] 10 mg PO TID PRN #90 capsule 01/10/17 [Rx] Escitalopram [Lexapro] 20 mg PO QPM #30 tablet 01/10/17 [Rx] Ibuprofen 800 mg PO TID PRN #90 tablet 01/10/17 [Rx] Levofloxacin 500 mg PO DAILY #8 solution 01/10/17 [Rx] Potassium Citrate [Urocit-K] 20 meq PO DAILY #14 tablet.er 01/10/17 [Rx] PredniSONE 20 mg PO AD #15 tablet 01/10/17 [Rx] PredniSONE [Prednisone] 5 mg PO DAILY #20 tab 01/10/17 [Rx] Simvastatin [Zocor] 40 mg PO HS #30 tablet 01/10/17 [Rx] Allergies/Adverse Reactions: Allergies latex Allergy (Verified 11/01/16 17:44) Rash morphine Adverse Reaction (Verified 11/01/16 19:22) Vomiting Date of admission: 01/09/17 13:13 Primary care physician: Torie Crespo CNP - Patient Status Disposition: Home, Self-Care Condition: Good Functional capacity at discharge: independent ambulation Overall status at discharge: patient is progressing back to baseline - Discharge Instructions Instructions: Influenza Virus Vaccine (Injection), Heart Failure (DC), Diabetes Mellitus Type 2 in Adults (DC), Chronic Obstructive Pulmonary Disease ( DC), Chronic Hypertension (DC), Pneumonia (DC) Follow Up With: Torie Crespo CNP [Primary Care Provider] - Tu Saha MD [Partnered Physician] - Additional Instructions: Follow up with PCP within one week of discharge. Follow up with pulmonology. Take prednisone 20mg As directed. Once finished, take Prednisone 5mg daily. Finish dose of Levaquin. BMP in one week. Patient counseled on importance of diet, exercise, and weight loss. - Diet and Activity Activity: increase activity as tolerated Diet: diabetic diet, low fat, low cholesterol Hospital course: Mr. David is a 56 year old male with PMHx of HTN, Type 2 DM, DANYELLE (on CPAP), CHF, COPD (not on home oxygen). He presented to the ED on 01/08 with CC of worsening shortness of breath. Of note, patient was recently hospitalized in October for community acquired pneumonia (treated with cefepime and Azithromycin). He also has had multiple exacerbations of COPD throughout the year. During his last hospital visit, pulmonology was consulted because of this. They suspected possible cardiogenic pulmonary edema (patient as fluid overloaded at that time as well). Patient recently had bronchoscopy on 11/20/16. Cultures were negative for acid fast stain, fungal culture showed no growth, and gram stain showed normal upper respiratory afshin. During his current hospital stay, CT of the chest showed chronic collapse of the right middle lobe, suspicious of material within right middle lobe lobar and segmental bronchi. Patient had another bronchoscopy by Dr. Shaa on 01/09, respiratory cultures and cytology pending. Multiple mucous plugs were found , and there was near occlusion of the right middle lobe secondary to mucus/ inflammation but no obstructing lesions were found. After bronchoscopy, pulmonology had cleared the patient for discharge with total of 10 days of Levaquin and steroid taper. Patient had no acute events during his hospital stay , and he remained stable until discharge. Patient agreed to receive flu shot before discharge. Furthermore, he was counseled on importance of diet, weight loss, exercise to decrease mortality. Plan: Follow up with PCP within one week of discharge. Follow up with pulmonology. Take prednisone 20mg As directed. Once finished, take Prednisone 5mg daily. Finish dose of Levaquin. BMP in one week. Patient counseled on importance of diet, exercise, and weight loss to reduce risk of mortality. - Time Spent with Patient Total time spent providing and/or coordinating discharge services: Greater than 30 minutes (40 mins) - Constitutional Vitals: Temp Pulse Resp BP Pulse Ox 98.1 F 88 17 134/82 92 L 01/10/17 11:49 01/10/17 11:49 01/10/17 11:49 01/10/17 11:49 01/10/17 11:49 General appearance: Present: A&O X 3, morbidly obese, pleasant, no acute distress, answers questions appropriately Exam: morbidly obese - Head Head exam: Present: atraumatic, normocephalic - Neck Neck exam general surgery: Present: supple, trachea midline - Respiratory Respiratory exam: Present: CTAB - Cardiovascular Cardiovascular exam: Present: distant heart sounds - GI/Abdominal Additional comments: obese, soft, positive bowel sounds. - Extremities Exam Extremities exam: Absent: cyanotic, pedal edema - Neurological Exam Neurological exam: Present: alert, oriented X3, no focal deficits - Psychiatric Psychiatric exam: Present: normal affect, normal mood <Hernando Hines - Last Filed: 01/10/17 16:17> Date of admission: 01/09/17 13:13 Primary care physician: Torie Crespo CNP Hospital course: Mr. David is a 56 year old male - Time Spent with Patient Total time spent providing and/or coordinating discharge services: - Constitutional Vitals: Temp Pulse Resp BP Pulse Ox 97.4 F L 78 18 142/75 94 L 01/10/17 15:08 01/10/17 15:08 01/10/17 15:08 01/10/17 15:08 01/10/17 15:08 - Attending Attestation I examined this patient and my medical decision-making was reviewed with the HAIR STYLIST/PA/Advanced Practice Nurse/Resident Physician. I agree with the documented findings, disposition and treatment plan as described except to the extent set forth below. Patient admitted for management of COPDE with RML collapse secondary to mucus plugging. He is seen at bedside with spouse, morbidly obese, not in any form of distress, speaks full sentences, chest is clear with no wheezing. Stable for discharge home with recs by Pulmonology for prolonged prednisone taper and at least 10 days of Levaquin, resume other home meds Follow up with Pulmonology and PCP Administer Flu shot Rest of details as in resident's documentation.
[2017-01-10 15:09] VITALS: BP 142/75
[2017-01-10] MEDS ORDERED: FLU VACC QS2016-17 36MOS UP/PF 0.5 ML SYRINGE IM ONE (15:25)
[2017-01-11] MEDS ORDERED: predniSONE 20 MG TABLET PO SCH (09:00)
[2017-01-12 20:40] LABS: Influenza A PCR Body Fluid NOT DETECTED; Influenza B PCR Body Fluid NOT DETECTED; RSV PCR Body Fluid NOT DETECTED
== END 2017-01-10 15:50 | disposition home or self-care (01) | DRG 164 ==
LOC: 3BNU 12:41 → EMEROO 12:41 → 3BNU 14:50 → SUATTDRO 01-09 13:13
PROVIDERS: ADMIT Internal Medicine; ATTEND Internal Medicine

== ENCOUNTER 2017-02-26 11:53 | Observation (INO) ==
[2017-02-26] MEDS ORDERED: Ipratropium/Albuterol Neb 3 ML IH ONE (12:01)
[2017-02-26] MEDS ORDERED: methylPREDNISolone 125 MG/2 ML VIAL IVP ONE (12:12)
--- NOTE | 2017-02-26 12:15 | Emergency Department Note ---
Disposition Clinical Impression: COPD exacerbation Disposition: Admitted As Inpatient Referrals: Torie Crespo CNP [Primary Care Provider] - Forms: ED Satisfaction Letter Time of Disposition: 13:21 SOB HPI - General Chief Complaint: ED Shortness of Breath/Dyspnea Stated Complaint: Dyspnea Time Seen by Provider: 02/26/17 12:01 Source: patient Nursing Notes Reviewed: Yes Vital Signs Reviewed: Yes - History of Present Illness 56-year-old male presents the emergency room for shortness of breath. Has had problems since October 2016. Worse over the past couple weeks. Saw his special services director today who sent him to the ER for admission. 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 He states he does not feel he needs any antibiotics or antifungals at this time. Patient admits to this chronic dyspnea. Really no chest pain. Describes it more as a chest pressure. He does have a history of congestive heart failure in the past. He states he is getting only about 2-3 pounds in the past 24 hours. His legs are not more swollen than normal. He does admit to a chronic cough but no significant sputum production. Pt Subjective Complaint: shortness of breath, cough Onset (ago): month(s) Severity: moderate Consistency/Duration: constant Improves with: oxygen, rest, bronchodilators Worsens with: exertion Known history of: COPD, congestive heart failure, other (APBA ) Treatment prior to arrival: bronchodilator Cough present: Yes Cough Description: Involuntary Cough Frequency: Intermittent Sputum production: No - Related Data Home Medications Medication Instructions Recorded Confirmed Albuterol Sulfate [Albuterol 2 puff IH Q4H PRN 11/01/16 01/08/17 Inhaler] Baclofen [Lioresal] 10 mg PO TID PRN 11/01/16 01/08/17 Cetirizine HCl [All Day Allergy] 10 mg PO DAILY 11/01/16 01/08/17 CloNIDine HCl [Clonidine HCl] 0.2 mg PO DAILY PRN 11/01/16 01/08/17 Fluticasone Propionate Nasal 100 mcg NS DAILY 11/01/16 01/08/17 [Flonase] Montelukast [Singulair] 10 mg PO QPM 11/01/16 01/08/17 Oxycodone HCl/Acetaminophen 1 tab PO Q4H PRN 11/01/16 01/08/17 [Percocet 7.5-325 mg Tablet] Ranitidine HCl [Zantac] 300 mg PO QAM 11/01/16 01/08/17 Furosemide [Lasix] 40 mg PO DAILY 01/08/17 01/08/17 Omeprazole [PriLOSEC] 20 mg PO DAILY 01/08/17 01/08/17 Previous Rx's Medication Instructions Recorded Metformin [Glucophage] 500 mg PO BIDWM #30 tablet 11/06/16 Albuterol Neb [Proventil Neb] 2.5 mg IH Q4H PRN #1 inhsol 01/10/17 BuPROPion SR (12 HR) [Wellbutrin 150 mg PO DAILY #30 tablet.er 01/10/17 SR] Budesonide/Formoterol 160/4.5 2 puff IH BID #1 inhaler 01/10/17 [Symbicort 160/4.5] Dicyclomine [Bentyl] 10 mg PO TID PRN #90 capsule 01/10/17 Escitalopram [Lexapro] 20 mg PO QPM #30 tablet 01/10/17 Ibuprofen 800 mg PO TID PRN #90 tablet 01/10/17 Levofloxacin 500 mg PO DAILY #8 solution 01/10/17 Potassium Citrate [Urocit-K] 20 meq PO DAILY #14 tablet.er 01/10/17 PredniSONE 20 mg PO AD #15 tablet 01/10/17 PredniSONE [Prednisone] 5 mg PO DAILY #20 tab 01/10/17 Simvastatin [Zocor] 40 mg PO HS #30 tablet 01/10/17 Allergies Allergy/AdvReac Type Severity Reaction Status Date / Time latex Allergy Rash Verified 11/01/16 17:44 morphine AdvReac Vomiting Verified 11/01/16 19:22 All systems ED: reviewed and negative except as stated. Constitutional: Reports: as per HPI Eyes: Reports: as per HPI Cardiovascular: Reports: as per HPI Respiratory: Reports: cough, dyspnea, wheezes Gastrointestinal: Reports: as per HPI Genitourinary: Reports: as per HPI Integumentary: Reports: as per HPI Neurological: Reports: as per HPI Psychiatric: Reports: as per HPI Endocrine: Reports: as per HPI Hematological/Lymphatic: Reports: as per HPI Allergic/Immunologic: Reports: as per HPI Past Medical History - Past Medical History Medical history: Reports: arthritis, asthma, COPD, diabetes, hypertension Surgical history: Reports: knee replacement, sinus surgery Psychiatric history: Reports: no psych history - Social History Smoking Status: Former smoker Smokeless Tobacco Status: No Alcohol use: Reports: none Drug use: Reports: none Physical Exam - General Limitations: no limitations General appearance: alert - Head Head exam: atraumatic, normocephalic - ENT ENT exam: normal exam - Neck Neck exam: Present: normal inspection - Chest Chest inspection: Present: normal inspection - Respiratory Respiratory exam: Present: respiratory distress, wheezes, accessory muscle use, prolonged expiratory phase - Cardiovascular Cardiovascular exam: Present: regular rate, normal rhythm - Abdominal Exam Abdominal exam: Present: soft, Non-Tender - Expanded Lower Extremity Exam Hip/Pelvis exam: Present: normal inspection, swelling - Back Exam Back exam: Present: normal inspection - Neurological Exam Neurological exam: Present: alert, oriented X3 - Psychiatric Psychiatric exam: Present: normal affect, normal mood - Skin Skin exam: Present: warm, dry, intact Course Course Narrative: I spoke with his special services director doctor. Recommended just straight for pulmonary treatments and steroids and admission. We are to consult the on-call special services director after he is admitted for further care. Patient does not wear home oxygen. He does however wear CPAP at night. Vital Signs Temperature 97.7 F 02/26/17 11:55 Pulse Rate 90 02/26/17 11:55 Respiratory Rate 20 02/26/17 11:55 Blood Pressure 144/79 02/26/17 11:55 O2 Sat by Pulse Oximetry 93 02/26/17 11:55 Temperature 97.7 F 02/26/17 11:55 Pulse Rate 90 02/26/17 11:55 Respiratory Rate 20 02/26/17 12:01 Blood Pressure 144/87 02/26/17 12:01 O2 Sat by Pulse Oximetry 93 02/26/17 12:08 Oxygen Delivery Oxygen Delivery Room Air Shortness of Breath/Dyspnea - [facility] Narrative Medical decision making narrative: No significant lab abnormalities. I spoke with the hospitalist. We will admit the patient to their service and consult pulmonary. He was given Solu-Medrol and some DuoNeb's in the ER. Chest x-ray is stable for him with this chronic right mid lung zone atelectasis. - Differential Diagnosis Likely: acute exacerbation of chronic obstructive airways disease - Medical Records Medical records reviewed: Yes I reviewed the patient's medical records. - Lab Data Lab results reviewed: Yes I reviewed the patient's lab results. Result diagrams: 02/26/17 12:18 02/26/17 12:18 Lab Results 02/26/17 02/26/17 02/26/17 Range/Units 12:18 12:18 12:18 WBC 10.3 (4.3-11.1) K/mcL RBC 4.10 L (4.19-5.50) M/mcL Hgb 13.0 (12.9-16.9) g/dL Hct 38.8 (37.5-50.1) % MCV 94.6 (83.0-100.0) fL MCH 31.7 (28.0-33.3) pg MCHC 33.5 (31.6-35.5) g/dL RDW 13.2 (11.5-14.5) % Plt Count 246 (140-400) K/mcL MPV 9.2 L (9.4-12.4) fL Immature Gran % 0.7 (0-4) % Seg Neutrophils % 60.9 % Lymphocytes % 29.8 % Monocytes % 6.3 % Eosinophils % 1.9 % Basophils % 0.4 % Neutrophils # 6.3 (1.6-8.9) K/mcL Lymphocytes # 3.1 (0.6-4.6) K/mcL Monocytes # 0.7 (0.0-1.3) K/mcL Eosinophils # 0.2 (0.0-0.6) K/mcL Basophils # 0.0 (0.0-0.2) K/mcL Sodium 138 (136-145) mEq/L Potassium 3.1 L (3.5-4.5) mEq/L Chloride 102 (98-109) mEq/L Carbon Dioxide 25 (19-29) mEq/L BUN 9 (8-26) mg/dL Creatinine 0.97 (0.72-1.25) mg/dL Est GFR ( Amer) > 60 (> 60) Est GFR (Non-Af Amer) > 60 (> 60) BUN/Creatinine Ratio 9 (6-26) Glucose 177 H (70-99) mg/dL Calculated Osmolality 289 (280-300) Calcium 9.2 (8.6-10.8) mg/dL Troponin I 0.01 (0-0.03) ng/mL B-Natriuretic Peptide (0-100) pg/mL 02/26/17 Range/Units 12:18 WBC (4.3-11.1) K/mcL RBC (4.19-5.50) M/mcL Hgb (12.9-16.9) g/dL Hct (37.5-50.1) % MCV (83.0-100.0) fL MCH (28.0-33.3) pg MCHC (31.6-35.5) g/dL RDW (11.5-14.5) % Plt Count (140-400) K/mcL MPV (9.4-12.4) fL Immature Gran % (0-4) % Seg Neutrophils % % Lymphocytes % % Monocytes % % Eosinophils % % Basophils % % Neutrophils # (1.6-8.9) K/mcL Lymphocytes # (0.6-4.6) K/mcL Monocytes # (0.0-1.3) K/mcL Eosinophils # (0.0-0.6) K/mcL Basophils # (0.0-0.2) K/mcL Sodium (136-145) mEq/L Potassium (3.5-4.5) mEq/L Chloride (98-109) mEq/L Carbon Dioxide (19-29) mEq/L BUN (8-26) mg/dL Creatinine (0.72-1.25) mg/dL Est GFR ( Amer) (> 60) Est GFR (Non-Af Amer) (> 60) BUN/Creatinine Ratio (6-26) Glucose (70-99) mg/dL Calculated Osmolality (280-300) Calcium (8.6-10.8) mg/dL Troponin I (0-0.03) ng/mL B-Natriuretic Peptide 29 (0-100) pg/mL - Radiology Data Radiology results reviewed: Yes I reviewed the patient's radiology results. - EKG Data EKG attestation: Yes I reviewed and interpreted this EKG. EKG results narrative: Rate of 86. Normal sinus rhythm. Normal axis. [place] interval 156. QRS 109. QT 404.
[2017-02-26 12:30] LABS: Basophils % 0.4 %; Eosinophils # 0.2 K/mcL (0.0-0.6); Eosinophils % 1.9 %; Hematocrit 38.8 % (37.5-50.1); Immature Granulocytes % 0.7 % (0-4); Lymphocytes # 3.1 K/mcL (0.6-4.6); Lymphocytes % 29.8 %; Mean Corpuscular HGB Conc 33.5 g/dL (31.6-35.5); Mean Corpuscular Hemoglobin 31.7 pg (28.0-33.3); Mean Corpuscular Volume 94.6 fL (83.0-100.0); Mean Platelet Volume 9.2 fL (9.4-12.4); Monocytes # 0.7 K/mcL (0.0-1.3); Monocytes % 6.3 %; Neutrophils # 6.3 K/mcL (1.6-8.9); Platelet Count 246 K/mcL (140-400); Red Cell Distribution Width 13.2 % (11.5-14.5); Segmented Neutrophils % 60.9 %
[2017-02-26 12:44] LABS: BUN/Creatinine Ratio 9 (6-26); Blood Urea Nitrogen 9 mg/dL (8-26); Calcium 9.2 mg/dL (8.6-10.8); Carbon Dioxide 25 mEq/L (19-29); Chloride 102 mEq/L (98-109); Glucose 177 mg/dL (70-99); Osmolality,Calculated 289 (280-300); Potassium 3.1 mEq/L (3.5-4.5); Sodium 138 mEq/L (136-145); eGFR For African Americans > 60 (> 60); eGFR For Non-African Americans > 60 (> 60)
[2017-02-26] MEDS ORDERED: Acetaminophen 325 MG TABLET PO PRN (13:56)
[2017-02-26] MEDS ORDERED: Naloxone 0.4 MG/ML INJ IVP PRN (13:56)
--- NOTE | 2017-02-26 14:01 | Internal Med History&Physical ---
Date of Encounter: 02/26/17 Time of Encounter: 13:45 Assessment and Plan (1) Acute exacerbation of chronic obstructive airways disease Current visit: Yes Status: Acute Will treat for acute exacerbation of COPD. Pulmonology consultation. Scheduled bronchodilator treatments. O2 supplementation. IV steroids. Patient not making any sputum and does not have any fever so we will hold off on antibiotics for now. Chest x-ray findings likely related to atelectasis but will follow pulmonology recommendations. (2) DANYELLE (obstructive sleep apnea) Current visit: Yes Status: Chronic Use CPAP at night. (3) Type 2 diabetes mellitus Current visit: Yes Status: Chronic Will use sliding scale insulin. Monitor blood sugars closely. Diabetic diet. Qualifiers: Diabetes mellitus complication status: with hyperglycemia Diabetes mellitus intermediate manager insulin use: without fci use Qualified Code(s): E11.65 - Type 2 diabetes mellitus with hyperglycemia (4) Morbid obesity with BMI of 45.0-49.9, adult Current visit: No Status: Chronic (5) HTN (hypertension) Current visit: Yes Status: Chronic Monitor blood pressure. Resume home medications. Qualifiers: Hypertension type: essential hypertension Qualified Code(s): I10 - Essential (primary) hypertension Internal Medicine - H&P: HPI Chief complaint: Shortness of breath, wheezing Admitted From: Emergency Dept Plans for Post Hospital Care: Home History of present illness: Mr. 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 Patient is being worked up by pulmonology for respiratory issues with concern for allergic bronchopulmonary aspergillosis and right middle lobe collapse syndrome and she has continued to have respiratory distress requiring the use of bronchodilator nebs multiple times every ER along with his usual medications. He does not have a history of chronic respiratory failure with no home oxygen. He denies any chest pain. He has chronic cough but does not produce any sputum. He denies any hemoptysis. No nausea or vomiting. No palpitations. No fever or chills or night sweats. He was admitted here last month and treated for acute exacerbation of COPD and also underwent bronchoscopy during that hospitalization which showed the presence of multiple mucous plugs with near occlusion of the right middle lobe without any obstructing lesions except for mucous plugs and information. Patient was discharged on Levaquin and steroid taper at that time. Past Med Surg Social Fam HX - Past Medical History Attestation: Yes The following information was validated with the patient. Source: patient Medical history: arthritis, asthma, COPD, diabetes, hypertension Psychiatric history: no psych history - Past Surgical History Surgical History: knee replacement, sinus surgery - Social History Smoking Status: Former smoker Smokeless Tobacco Status: No Alcohol use: none Drug use: none - Family History Father Hx Family Cardiac Disorders: Yes Mother Living Status: Still Living Hx Family Cardiac Disorders: Yes Brother Living Status: Still Living Hx Family Endocrine Disorder: Yes (Endocrine) Internal Medicine - H&P: Meds Albuterol Sulfate [Albuterol Inhaler] 2 puff IH Q4H PRN 11/01/16 [History] Baclofen [Lioresal] 10 mg PO TID PRN 11/01/16 [History] Cetirizine HCl [All Day Allergy] 10 mg PO DAILY 11/01/16 [History] CloNIDine HCl [Clonidine HCl] 0.2 mg PO DAILY PRN 11/01/16 [History] Fluticasone Propionate Nasal [Flonase] 100 mcg NS DAILY 11/01/16 [History] Montelukast [Singulair] 10 mg PO QPM 11/01/16 [History] Oxycodone HCl/Acetaminophen [Percocet 7.5-325 mg Tablet] 1 tab PO Q4H PRN [History] Ranitidine HCl [Zantac] 300 mg PO QAM 11/01/16 [History] Metformin [Glucophage] 500 mg PO BIDWM #30 tablet 11/06/16 [Rx] Furosemide [Lasix] 40 mg PO DAILY 01/08/17 [History] Omeprazole [PriLOSEC] 20 mg PO DAILY 01/08/17 [History] Albuterol Neb [Proventil Neb] 2.5 mg IH Q4H PRN #1 inhsol 01/10/17 [Rx] BuPROPion SR (12 HR) [Wellbutrin SR] 150 mg PO DAILY #30 tablet.er 01/10/17 [Rx] Budesonide/Formoterol 160/4.5 [Symbicort 160/4.5] 2 puff IH BID #1 inhaler 01/10 [Rx] Dicyclomine [Bentyl] 10 mg PO TID PRN #90 capsule 01/10/17 [Rx] Escitalopram [Lexapro] 20 mg PO QPM #30 tablet 01/10/17 [Rx] Ibuprofen 800 mg PO TID PRN #90 tablet 01/10/17 [Rx] Potassium Citrate [Urocit-K] 20 meq PO DAILY #14 tablet.er 01/10/17 [Rx] Simvastatin [Zocor] 40 mg PO HS #30 tablet 01/10/17 [Rx] Meloxicam [Mobic] 7.5 mg PO DAILY 02/26/17 [History] Pregabalin [Lyrica] 150 mg PO BID 02/26/17 [History] Umeclidinium Royal [Incruse Ellipta] 1 puff IH DAILY 02/26/17 [History] Allergies latex Allergy (Verified 11/01/16 17:44) Rash morphine Adverse Reaction (Verified 11/01/16 19:22) Vomiting All Systems PM: A 10-system review of systems was performed and is negative for pertinent findings except as documented above in the HPI. - Constitutional Constitutional: no chills, no fever(s), no night sweats - EENT Eyes: no change in vision, no discharge, no pain, no photophobia Ears: no ear discharge, no ear pain, no tinnitus Nose, mouth and throat: no dysphagia, no nasal discharge, no neck pain, no sore throat - Cardiovascular Cardiovascular ROS IM: no chest pain, no diaphoresis, no dyspnea, no lightheadedness, no palpitations, no syncope - Respiratory Respiratory: cough, dyspnea, dyspnea on exertion, wheezing, no excessive phlegm production - Gastrointestinal Gastrointestinal: no abdominal pain, no diarrhea, no hematemesis, no hematochezia, no melena, no nausea, no vomiting - Musculoskeletal Musculoskeletal ROS IM: no numbness, no tingling - Integumentary Integumentary IM: no rash, no unusual bruising - Neurological Neurological ROS: no confusion, no convulsions, no focal weakness, no numbness, no tingling, no tremor(s) - Hematologic/Lymphatic Hematologic/Lymphatic: no easy bruising - Constitutional Vitals: Temp Pulse Resp BP Pulse Ox 97.7 F 90 20 144/87 93 02/26/17 11:55 02/26/17 11:55 02/26/17 12:01 02/26/17 12:01 02/26/17 12:08 General appearance: Present: cooperative, A&O X 3, morbidly obese, answers questions appropriately Exam: Moderate distress - Eye Eye exam: Present: EOMI, PERRL, conjuntiva pink, sclera anicteric - Neck Neck exam general surgery: Present: supple, trachea midline. Absent: lymphadenopathy - Respiratory Respiratory exam: Present: decreased breath sounds (Decreased air entry bilaterally), prolonged expiratory phase. Absent: accessory muscle use, rales, rhonchi, wheezes - Cardiovascular Cardiovascular exam: Present: RRR, +S1, +S2. Absent: diastolic murmur, gallop, rubs, systolic murmur - GI/Abdominal GI/Abdominal exam: Present: normal bowel sounds, soft, no peritoneal signs. Absent: distended, tenderness - Extremities Exam Extremities exam: Present: warm, radial pulses palpable and symetrical. Absent : calf tenderness, cyanotic, pedal edema - Neurological Exam Neurological exam: Present: CN II-XII intact, oriented X3, no focal deficits. Absent: facial droop, speech deficit - Skin Skin exam: Present: dry, intact Internal Med - H&P Results - Labs CBC & Chem 7: 02/26/17 12:18 02/26/17 12:18 Labs: Short CBC 02/26/17 Range/Units 12:18 WBC 10.3 (4.3-11.1) K/mcL Hgb 13.0 (12.9-16.9) g/dL Hct 38.8 (37.5-50.1) % Plt Count 246 (140-400) K/mcL Neutrophils # 6.3 (1.6-8.9) K/mcL BMP 02/26/17 12:18 Sodium 138 Potassium 3.1 L Chloride 102 Carbon Dioxide 25 BUN 9 Creatinine 0.97 Glucose 177 H Calcium 9.2 Cardiac Enzymes 02/26/17 Range/Units 12:18 Troponin I 0.01 (0-0.03) ng/mL - Impressions ITS Impressions Chest X-Ray 02/26/17 12:01 IMPRESSION: Right basilar atelectasis versus pneumonia. Radiographic follow-up recommended to assure resolution. D/ /26/2017 12:52:24 Chuck Mccoy MD / earnold Interpreting Provider: Chuck Mccoy MD - Attending Attestation This document has been at least partially created by [employer] recognition technology by Dr. Chairez. Errors in grammar, wording or other phrases may exist. If errors are found after the documentation is signed, they will be addressed individually in the addendum section of this document when appropriate.
[2017-02-26] MEDS ORDERED: Dextrose Gel 15 GM PO PRN ×2 (14:10)
[2017-02-26] MEDS ORDERED: D5% in Water 1,000 ML IVC PRN (14:10)
[2017-02-26] MEDS ORDERED: *HR* Dextrose 50 % in Water (Syg) 50 ML SYRINGE IVP PRN (14:10)
[2017-02-26] MEDS: Ipratropium/Albuterol Neb 3 ML IH SCH ×2 (16:51→23:52)
[2017-02-26] MEDS: *HR* OxyCODONE/APAP 7.5/325 TABLET PO PRN ×2 (17:57→23:50)
[2017-02-26] MEDS: Baclofen 10 MG TABLET PO PRN (17:57)
[2017-02-26] MEDS: Insulin LISPRO 300 UNITS/3 ML VIAL SQ SCH ×2 (17:58→20:25)
[2017-02-26] MEDS: *HR* Heparin 5,000 UNIT/ML VIAL SQ SCH (17:58)
[2017-02-26] MEDS: methylPREDNISolone 125 MG/2 ML VIAL IVP SCH ×2 (17:58→23:50)
[2017-02-26] MEDS: Pregabalin 75 MG CAPSULE PO SCH (20:24)
[2017-02-26] MEDS: Insulin DETEMIR 100 UNIT/ML X5UNITS SQ SCH (20:24)
[2017-02-26] MEDS ORDERED: Albuterol 2.5 MG/3 ML NEBULIZER IH PRN (20:34)
[2017-02-26] MEDS: cloNIDine HCl 0.1 MG TABLET PO PRN (20:45)
[2017-02-26] MEDS: Budesonide/Formoterol 160/4.5 MDI IH SCH (23:52)
[2017-02-27] MEDS: Baclofen 10 MG TABLET PO PRN ×2 (01:04→10:11)
[2017-02-27] MEDS: Ipratropium/Albuterol Neb 3 ML IH SCH ×4 (04:40→22:33)
[2017-02-27 05:45] LABS: Basophils % 0.1 %; Hematocrit 38.5 % (37.5-50.1); Hemoglobin 13.1 g/dL (12.9-16.9); Immature Granulocytes % 1.2 % (0-4); Lymphocytes # 1.1 K/mcL (0.6-4.6); Lymphocytes % 10.1 %; Mean Corpuscular Hemoglobin 32.4 pg (28.0-33.3); Mean Corpuscular Volume 95.3 fL (83.0-100.0); Mean Platelet Volume 9.7 fL (9.4-12.4); Monocytes # 0.1 K/mcL (0.0-1.3); Monocytes % 0.6 %; Neutrophils # 9.8 K/mcL (1.6-8.9); Platelet Count 232 K/mcL (140-400); Red Blood Count 4.04 M/mcL (4.19-5.50); Red Cell Distribution Width 13.2 % (11.5-14.5)
[2017-02-27 06:02] LABS: BUN/Creatinine Ratio 19 (6-26); Blood Urea Nitrogen 17 mg/dL (8-26); Calcium 9.7 mg/dL (8.6-10.8); Carbon Dioxide 27 mEq/L (19-29); Chloride 102 mEq/L (98-109); Glucose 246 mg/dL (70-99); Osmolality,Calculated 294 (280-300); Potassium 3.9 mEq/L (3.5-4.5); Sodium 137 mEq/L (136-145); eGFR For African Americans > 60 (> 60); eGFR For Non-African Americans > 60 (> 60)
[2017-02-27] MEDS: *HR* Heparin 5,000 UNIT/ML VIAL SQ SCH ×2 (06:40→18:54)
[2017-02-27] MEDS: *HR* OxyCODONE/APAP 7.5/325 TABLET PO PRN ×4 (06:40→23:08)
[2017-02-27] MEDS: methylPREDNISolone 125 MG/2 ML VIAL IVP SCH ×3 (06:40→18:46)
--- NOTE | 2017-02-27 08:37 | Pulmonology Consult Note ---
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 Furthermore, given the recent outpatient evaluation by pulmonary service, the patient may have allergic bronchopulmonary aspergillosis. Nonetheless, I agree with use of systemic steroids, combination inhaled bronchodilator with a long-acting agent as well as inhaled corticosteroid product, long acting inhaled muscarinic agent. Patient may transition to enteral systemic steroid within the next 24 hours. He will likely require a very gradual taper to a maintenance dose of anywhere between 10 and 20 mg daily. Further tapering will be predicated upon improvement of his respiratory and clinical status. I will defer to the outpatient pulmonary service use of antifungal therapy in order to reduce the Aspergillus antigen burden (if this patient truly has ABPA) and any other therapy directed towards treatment of allergy (IV monoclonal antibody therapy). Meantime, for treatment of sleep apnea, the patient will continue to utilize nocturnal BiPAP as provided as an outpatient. Thank you for this consultation. Juany Cruz [phone] Code(s): J44.1 - Chronic obstructive pulmonary disease with (acute) exacerbation SNOMED Code(s): 168560913 History of Present Illness Consult date: 02/27/17 Chief complaint: Dyspnea, cough, wheeze History of present illness: Assisted 6-year-old morbidly obese male well known to the pulmonary service was admitted to the hospital with complaints of progressive exertional breathlessness, cough and wheeze. Patient has a well-established history of obstructive lung disease possibly combination of asthma and COPD (overlap syndrome) and recently given the evaluation performed by outpatient pulmonary service, possible allergic bronchopulmonary aspergillosis. Since his admission to the hospital and following treatment with systemic steroids in addition to bronchodilator therapy, the patient is noted a substantial improvement of his respiratory status. The patient is a former cigarette smoker having stopped approximately 16 years ago. He smoked 10 years and smoked upwards of 2-1/2 packs a day. The patient has a well-established history of sleep apnea and utilizes BiPAP device in the home setting and has done so for a number of years. Patient also has a pulmonary historical diagnosis of right middle lobe syndrome. There is no well-established family history of pulmonary disease, the patient no longer works and he has no significant occupational exposure development of pneumoconiosis. Past Med Surg Social Fam HX - Past Medical History Medical history: arthritis, asthma, COPD, diabetes, hypertension Psychiatric history: anxiety, depression - Past Surgical History Surgical History: knee replacement, sinus surgery - Social History Smoking Status: Former smoker Smokeless Tobacco Status: No Alcohol use: none Drug use: none - Family History Father Hx Family Cardiac Disorders: Yes Mother Living Status: Still Living Hx Family Cardiac Disorders: Yes Brother Living Status: Still Living Hx Family Endocrine Disorder: Yes (Endocrine) Medications and Allergies Albuterol Sulfate [Albuterol Inhaler] 2 puff IH Q4H PRN 11/01/16 [History] Baclofen [Lioresal] 10 mg PO TID PRN 11/01/16 [History] Cetirizine HCl [All Day Allergy] 10 mg PO DAILY 11/01/16 [History] CloNIDine HCl [Clonidine HCl] 0.2 mg PO DAILY PRN 11/01/16 [History] Fluticasone Propionate Nasal [Flonase] 100 mcg NS DAILY 11/01/16 [History] Montelukast [Singulair] 10 mg PO QPM 11/01/16 [History] Oxycodone HCl/Acetaminophen [Percocet 7.5-325 mg Tablet] 1 tab PO Q4H PRN [History] Ranitidine HCl [Zantac] 300 mg PO QAM 11/01/16 [History] Metformin [Glucophage] 500 mg PO BIDWM #30 tablet 11/06/16 [Rx] Furosemide [Lasix] 40 mg PO DAILY 01/08/17 [History] Omeprazole [PriLOSEC] 20 mg PO DAILY 01/08/17 [History] Albuterol Neb [Proventil Neb] 2.5 mg IH Q4H PRN #1 inhsol 01/10/17 [Rx] BuPROPion SR (12 HR) [Wellbutrin SR] 150 mg PO DAILY #30 tablet.er 01/10/17 [Rx] Budesonide/Formoterol 160/4.5 [Symbicort 160/4.5] 2 puff IH BID #1 inhaler 01/10 [Rx] Dicyclomine [Bentyl] 10 mg PO TID PRN #90 capsule 01/10/17 [Rx] Escitalopram [Lexapro] 20 mg PO QPM #30 tablet 01/10/17 [Rx] Ibuprofen 800 mg PO TID PRN #90 tablet 01/10/17 [Rx] Potassium Citrate [Urocit-K] 20 meq PO DAILY #14 tablet.er 01/10/17 [Rx] Simvastatin [Zocor] 40 mg PO HS #30 tablet 01/10/17 [Rx] Meloxicam [Mobic] 7.5 mg PO DAILY 02/26/17 [History] Pregabalin [Lyrica] 150 mg PO BID 02/26/17 [History] Umeclidinium Busy [Incruse Ellipta] 1 puff IH DAILY 02/26/17 [History] Allergies latex Allergy (Verified 11/01/16 17:44) Rash morphine Adverse Reaction (Verified 11/01/16 19:22) Vomiting All Systems: A 10-system review of systems was performed and is negative for pertinent findings except as documented above in the HPI. - Constitutional Constitutional: as per HPI - Respiratory Respiratory: as per HPI Physical Examination Vital Signs: Vital Signs, Last 4 Hours Temp Pulse Resp BP Pulse Ox 02/27/17 07:43 97.4 F L 69 18 170/85 95 02/27/17 04:42 18 94 General appearance: no acute distress, other (Morbidly obese male awake and alert, vitals reviewed) Eyes: nonicteric ENT: oropharynx moist Mallampati (class): 3 Neck: no lymphadenopathy Auscultation: left: other (Currently note absence of wheeze.), bilateral: diminished breath sounds Cardiovascular: regular rate and rhythm Gastrointestinal: normoactive bowel sounds, non-distended, other (Central obesity) Integumentary: normal Extremities: no cyanosis, edema, other (Trace lower extremity edema) Musculoskeletal: no deformities normal mental status, non-focal exam mood appropriate Results - Laboratory Findings CBC and BMP: 02/27/17 05:17 02/27/17 05:17 Abnormal lab findings: Abnormal lab results RBC 4.04 M/mcL (4.19-5.50) L 02/27/17 05:17 Neutrophils # 9.8 K/mcL (1.6-8.9) H 02/27/17 05:17 Glucose 246 mg/dL (70-99) H 02/27/17 05:17 POC Glucose 231 (58-89) H 02/26/17 15:53 - Clinical Findings Intake & Output: Intake & Output 02/26/17 02/27/17 02/27/17 23:59 07:59 15:59 Intake Total 1077 / 1077 0 / 0 Output Total 350 / 350 140 / 140 Balance 727 / 727 -140 / -140 Weight 168.736 kg Consult Discharge Plan - Plan Referrals: Torie Crespo, [employer] [Primary Care Provider] -
[2017-02-27] MEDS: Pregabalin 75 MG CAPSULE PO SCH ×2 (10:10→20:53)
[2017-02-27] MEDS: Potassium Citrate 10 MEQ TABLET.ER PO SCH (10:10)
[2017-02-27] MEDS: Loratadine 10 MG TABLET PO SCH (10:11)
[2017-02-27] MEDS: BuPROPion SR (12 HR) 150 MG TABLET PO SCH (10:11)
[2017-02-27] MEDS: Furosemide 40 MG TABLET PO SCH (10:11)
[2017-02-27] MEDS: Insulin DETEMIR 100 UNIT/ML X5UNITS SQ SCH ×2 (10:17→20:52)
[2017-02-27] MEDS: Insulin LISPRO 300 UNITS/3 ML VIAL SQ SCH ×4 (10:17→20:52)
[2017-02-27] MEDS: Fluticasone Propionate Nasal 50 MCG/SPRAY BOTTLE NS SCH (10:18)
[2017-02-27] MEDS: Budesonide/Formoterol 160/4.5 MDI IH SCH ×2 (10:42→22:33)
--- NOTE | 2017-02-27 13:39 | Internal Med Progress Note ---
Date of Encounter: 02/27/17 Time of Encounter: 09:15 - Assessment and plan (1) Acute exacerbation of chronic obstructive airways disease Current Visit: Yes Status: Acute Assessment and plan: Pt reports tighness and squeezing in posterior lung bases, per his description and reports NEGRON. He states that this has been normal for him since September. Pt states that he quit smoking 30 yrs ago. Denies chest burning and has a non- productive cough. Lungs are diminished but clear. He states that he was admitted 2-3 weeks ago for the same and did not ever get better. He reports using nebulizer treatments 3x/hour. Per pulmonary recommendation, change to po steroids in the morning and send home with a gradual taper to a maintenance dose of 10 t0 20mg daily. Maintain bi-pap and follow up as scheduled with outpt pulmonology and allergy treatment outpatient. IV steroids- transition to po in the am Supplemental 02 Bronchodilator treatments (2) DANYELLE (obstructive sleep apnea) Current Visit: Yes Status: Chronic Assessment and plan: CPAP at night. (3) HTN (hypertension) Current Visit: Yes Status: Chronic Assessment and plan: Chronic. Continue home medications. Pt has prn Clonidine for hypertension. Continue to monitor. Qualifiers: Hypertension type: essential hypertension Qualified Code(s): I10 - Essential (primary) hypertension (4) Morbid obesity Current Visit: No Status: Chronic Assessment and plan: Chronic. lifestyle changes. Qualifiers: Obesity type: due to excess calories Qualified Code(s): E66.01 - Morbid ( severe) obesity due to excess calories (5) Diastolic CHF, acute Current Visit: No Status: Acute Assessment and plan: Echo done in Oct, 2016, sub-optimal study, LVEF 55%, moderate diastolic dysfunction, no significant valvular dysfunction, mildly dilated LA, normal RV size and function. Continue lasix Monitor pt (6) DVT prophylaxis Current Visit: No Status: Acute Assessment and plan: Heparin SQ - Time Spent With Patient less than 15 minutes - Subjective Interval history: Patient is tested about 9:15 AM. Patient walking around in room straightening room. He says that he feels "rough." He reports tight squeezing and its bilateral posterior bases and dyspnea on exertion. He says is normal for him since September and is essentially unchanged. He says that he does not have burning but does have a nonproductive cough. He reports increased nebulizer use , up to 3 treatments per hour for the last week. He was seen in pulmonology office and sent here for admission. He was also admitted 2-3 weeks ago and states that he just never got better. His lung sounds are diminished and clear. He does have mild dyspnea with speaking and speaks in short phrases. He is wearing oxygen at 3 L, he does not wear oxygen at home. He does have CPAP for obstructive sleep apnea, also uses at home. - Constitutional Vitals: Temp Pulse Resp BP Pulse Ox 97.6 F 86 16 175/85 95 02/27/17 11:29 02/27/17 11:29 02/27/17 11:29 02/27/17 11:29 02/27/17 11:29 General appearance: Present: cooperative, A&O X 3, morbidly obese, pleasant, answers questions appropriately - Head Head exam: Present: normal inspection - Eye Eye exam: Present: normal appearance - ENT ENT exam: Present: mucous membranes moist, normal exam - Neck Neck exam general surgery: Present: normal inspection, tenderness. Absent: lymphadenopathy - Respiratory Respiratory exam: Present: decreased breath sounds. Absent: rhonchi, stridor, wheezes - Cardiovascular Cardiovascular exam: Present: RRR, +S1, +S2. Absent: diastolic murmur, systolic murmur - GI/Abdominal GI/Abdominal exam: Present: distended, normal bowel sounds. Absent: hepatomegaly, soft, tenderness - Extremities Exam Extremities exam: Present: normal capillary refill, normal inspection, warm, radial pulses palpable and symetrical. Absent: pedal edema, tenderness - Neurological Exam Neurological exam: Present: alert, normal gait, oriented X3, no focal deficits, strengths equal and symetr throughout. Absent: facial droop, speech deficit Internal Medicine: Result - Labs CBC & Chem 7: 02/27/17 05:17 02/27/17 05:17 Labs: Short CBC 02/27/17 Range/Units 05:17 WBC 11.1 (4.3-11.1) K/mcL Hgb 13.1 (12.9-16.9) g/dL Hct 38.5 (37.5-50.1) % Plt Count 232 (140-400) K/mcL Neutrophils # 9.8 H (1.6-8.9) K/mcL BMP 04/26/17 05:17 Sodium 137 Potassium 3.9 Chloride 102 Carbon Dioxide 27 BUN 17 Creatinine 0.90 Glucose 246 H Calcium 9.7 Consult Discharge Plan - Plan Referrals: Torie Crespo, DEBORAH [Primary Care Provider] -
[2017-02-27] MEDS: (Umeclidinium Bromide [Incruse Ellipta] 1 PUFF) IH SCH ×2 (14:00→18:45)
[2017-02-27] MEDS: cloNIDine HCl 0.1 MG TABLET PO PRN (21:13)
[2017-02-28] MEDS: Baclofen 10 MG TABLET PO PRN ×3 (00:21→22:05)
[2017-02-28] MEDS: Ipratropium/Albuterol Neb 3 ML IH SCH ×4 (04:05→23:00)
[2017-02-28 04:49] LABS: Basophils % 0.1 %; Hematocrit 35.1 % (37.5-50.1); Lymphocytes # 1.2 K/mcL (0.6-4.6); Lymphocytes % 8.4 %; Mean Corpuscular HGB Conc 34.2 g/dL (31.6-35.5); Mean Corpuscular Hemoglobin 32.7 pg (28.0-33.3); Mean Corpuscular Volume 95.6 fL (83.0-100.0); Mean Platelet Volume 10.4 fL (9.4-12.4); Monocytes # 0.4 K/mcL (0.0-1.3); Monocytes % 3.2 %; Neutrophils # 12.2 K/mcL (1.6-8.9); Platelet Count 194 K/mcL (140-400); Red Blood Count 3.67 M/mcL (4.19-5.50); Red Cell Distribution Width 13.2 % (11.5-14.5); Segmented Neutrophils % 87.3 %
[2017-02-28] MEDS: *HR* Heparin 5,000 UNIT/ML VIAL SQ SCH ×2 (04:56→17:51)
[2017-02-28] MEDS: *HR* OxyCODONE/APAP 7.5/325 TABLET PO PRN ×4 (04:56→22:05)
[2017-02-28 05:04] LABS: BUN/Creatinine Ratio 27 (6-26); Blood Urea Nitrogen 24 mg/dL (8-26); Calcium 9.4 mg/dL (8.6-10.8); Carbon Dioxide 27 mEq/L (19-29); Chloride 101 mEq/L (98-109); Glucose 240 mg/dL (70-99); Osmolality,Calculated 298 (280-300); Potassium 4.1 mEq/L (3.5-4.5); Sodium 138 mEq/L (136-145); eGFR For African Americans > 60 (> 60); eGFR For Non-African Americans > 60 (> 60)
[2017-02-28] MEDS: BuPROPion SR (12 HR) 150 MG TABLET PO SCH (07:43)
[2017-02-28] MEDS: Pregabalin 75 MG CAPSULE PO SCH ×2 (07:43→21:57)
[2017-02-28] MEDS: Potassium Citrate 10 MEQ TABLET.ER PO SCH (07:43)
[2017-02-28] MEDS: Furosemide 40 MG TABLET PO SCH (07:44)
[2017-02-28] MEDS: Fluticasone Propionate Nasal 50 MCG/SPRAY BOTTLE NS SCH (07:44)
[2017-02-28] MEDS: Loratadine 10 MG TABLET PO SCH (07:44)
[2017-02-28] MEDS: Insulin LISPRO 300 UNITS/3 ML VIAL SQ SCH ×4 (07:45→21:57)
[2017-02-28] MEDS: (Umeclidinium Bromide [Incruse Ellipta] 1 PUFF) IH SCH (07:47)
[2017-02-28] MEDS ORDERED: predniSONE 20 MG TABLET PO SCH (08:00)
[2017-02-28] MEDS: Insulin DETEMIR 100 UNIT/ML X5UNITS SQ SCH ×2 (09:29→21:57)
[2017-02-28] MEDS: Budesonide/Formoterol 160/4.5 MDI IH SCH ×2 (10:41→23:00)
--- NOTE | 2017-02-28 11:31 | Electrocardiograph Report ---
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
[2017-02-28] MEDS ORDERED: Furosemide 20 MG/2 ML VIAL IVP ONE (14:26)
[2017-02-28] MEDS: MethylPREDNISolone 40 MG/ML VIAL IVP SCH (14:43)
--- NOTE | 2017-02-28 18:36 | Internal Med Progress Note ---
Date of Encounter: 02/28/17 Time of Encounter: 08:45 - Assessment and plan (1) Acute exacerbation of chronic obstructive airways disease Current Visit: Yes Status: Acute Assessment and plan: Patient only has COPD with likely exacerbation, and also may have asthma overlap syndrome. Patient has been seen by pulmonology today. He has been switched back to IV Solu-Medrol 40 mg 3 times a day. He will maintain his oxygen and his CPAP for nighttime use. Patient will be seen outpatient for the use of antifungal therapy. Pulmonology to follow. Lungs are clear and diminished posteriorly Patient does not use home oxygen, however he is using 3 L here continuously. He reports dyspnea on exertion while walking around his room. (2) DANYELLE (obstructive sleep apnea) Current Visit: Yes Status: Chronic Assessment and plan: Continue CPAP use. (3) HTN (hypertension) Current Visit: Yes Status: Chronic Assessment and plan: Chronic. Currently well controlled Monitor vital signs Continue to monitor labs Continue home medications When necessary antihypertensives as needed. Qualifiers: Hypertension type: essential hypertension Qualified Code(s): I10 - Essential (primary) hypertension (4) Morbid obesity Current Visit: No Status: Chronic Assessment and plan: Chronic. Lifestyle changes. Qualifiers: Obesity type: due to excess calories Qualified Code(s): E66.01 - Morbid ( severe) obesity due to excess calories (5) Diastolic CHF, acute Current Visit: No Status: Acute Assessment and plan: Chronic. IV Lasix 40 mg for peripheral edema. Echo done in 2015, was a suboptimal study. LVEF 55% with moderate diastolic dysfunction, no significant valvular dysfunction, mildly dilated LA, normal RV size and function. Telemetry (6) DVT prophylaxis Current Visit: No Status: Acute Assessment and plan: Subcutaneous heparin daily Patient has been up moving around his room. - Time Spent With Patient 25 - 35 minutes - Subjective Interval history: Patient was seen and assessed at about 845 this morning. He was sitting up in the bed, wearing oxygen, is very upset. He is upset that his steroids were changed from IV to by mouth. He is upset at the prospect of being discharged. He says that he is unable to even ambulate around the room without becoming extremely short of breath. Yesterday when I initially assessed patient he stated that he was afraid that we are going to kick him out again. He said that if he has to leave prematurely he will just return because he never gets better. I verbalize understanding with him and we discussed his condition. Per recommendation of pulmonology, I was preparing to discharge him today. He had been converted from IV Solu-Medrol to by mouth prednisone this morning. Patient was extremely upset by this and told me he refused to leave. 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 He said that his was calling the office and she was going to have Dr. Strange see him today. I personally spoke with Dr. Cruz by phone after evaluating patient this morning and he said that he had already spoken with Dr. Strange, as well. Later in the afternoon Dr. Strange came to see the patient and also spoke with me. We changed the by mouth prednisone back to 40 mg Solu-Medrol IV 3 times a day. He also added Lasix 40 mg IV and I and O. He indicated the patient had peripheral edema and he needed to be diuresed. He said the patient is not close to being ready for discharge and that this is a complicated case, patient will be discharged on prednisone 40 mg by mouth daily without a taper. I went back to see patient at about 5 PM. He was resting quietly in a darkened room with his CPAP on. We discussed Dr. Strange plan, he says he has no recollection of Dr. Strange being here today and was unaware of plan. I discussed again that he would be switched back to IV steroids and not discharged. I told him he would be getting IV Lasix and will be monitoring his intake and output. I also made him aware though he will be discharged on prednisone without a taper. He agreed and was happy with this plan. - Constitutional Vitals: Temp Pulse Resp BP Pulse Ox 97.5 F L 68 20 149/64 96 02/28/17 15:25 02/28/17 15:25 02/28/17 16:10 02/28/17 15:25 02/28/17 16:10 General appearance: Present: cooperative, A&O X 3, morbidly obese, pleasant, answers questions appropriately - Head Head exam: Present: normal inspection - Eye Eye exam: Present: normal appearance, conjuntiva pink - ENT ENT exam: Present: mucous membranes moist, normal exam - Neck Neck exam general surgery: Present: normal inspection. Absent: lymphadenopathy , tenderness - Respiratory Respiratory exam: Present: decreased breath sounds, CTAB. Absent: accessory muscle use, chest wall tenderness, rales, respiratory distress, rhonchi, stridor , wheezes, tachypnea - Cardiovascular Cardiovascular exam: Present: RRR, +S1, +S2. Absent: diastolic murmur, systolic murmur - Neurological Exam Neurological exam: Present: alert, oriented X3, no focal deficits, strengths equal and symetr throughout. Absent: facial droop, speech deficit Internal Medicine: Result - Labs CBC & Chem 7: 02/28/17 03:55 02/28/17 03:55 Labs: Short CBC 02/28/17 Range/Units 03:55 WBC 14.0 H (4.3-11.1) K/mcL Hgb 12.0 L (12.9-16.9) g/dL Hct 35.1 L (37.5-50.1) % Plt Count 194 (140-400) K/mcL Neutrophils # 12.2 H (1.6-8.9) K/mcL BMP 02/28/17 03:55 Sodium 138 Potassium 4.1 Chloride 101 Carbon Dioxide 27 BUN 24 Creatinine 0.88 Glucose 240 H Calcium 9.4 Consult Discharge Plan - Plan Referrals: Torie Crespo CNP [Primary Care Provider] - 03/04/17 1:35 pm
[2017-03-01] MEDS: MethylPREDNISolone 40 MG/ML VIAL IVP SCH ×3 (01:02→16:56)
[2017-03-01] MEDS: Ipratropium/Albuterol Neb 3 ML IH SCH ×3 (04:36→15:58)
[2017-03-01 05:13] LABS: Basophils % 0.2 %; Hematocrit 39.2 % (37.5-50.1); Immature Granulocytes % 1.2 % (0-4); Lymphocytes # 1.3 K/mcL (0.6-4.6); Lymphocytes % 10.8 %; Mean Corpuscular HGB Conc 33.2 g/dL (31.6-35.5); Mean Corpuscular Hemoglobin 31.9 pg (28.0-33.3); Mean Corpuscular Volume 96.1 fL (83.0-100.0); Mean Platelet Volume 10.1 fL (9.4-12.4); Monocytes # 0.5 K/mcL (0.0-1.3); Monocytes % 4.4 %; Neutrophils # 10.1 K/mcL (1.6-8.9); Platelet Count 223 K/mcL (140-400); Red Blood Count 4.08 M/mcL (4.19-5.50); Red Cell Distribution Width 13.3 % (11.5-14.5); Segmented Neutrophils % 83.4 %
[2017-03-01 05:31] LABS: BUN/Creatinine Ratio 27 (6-26); Blood Urea Nitrogen 25 mg/dL (8-26); Calcium 9.4 mg/dL (8.6-10.8); Carbon Dioxide 28 mEq/L (19-29); Chloride 102 mEq/L (98-109); Glucose 179 mg/dL (70-99); Osmolality,Calculated 301 (280-300); Potassium 3.9 mEq/L (3.5-4.5); Sodium 141 mEq/L (136-145); eGFR For African Americans > 60 (> 60); eGFR For Non-African Americans > 60 (> 60)
[2017-03-01] MEDS: *HR* Heparin 5,000 UNIT/ML VIAL SQ SCH ×2 (06:04→17:57)
[2017-03-01] MEDS: *HR* OxyCODONE/APAP 7.5/325 TABLET PO PRN ×2 (06:04→12:05)
[2017-03-01] MEDS: Insulin LISPRO 300 UNITS/3 ML VIAL SQ SCH ×6 (08:08→16:59)
[2017-03-01] MEDS ORDERED: Insulin DETEMIR 100 UNIT/ML X5UNITS SQ SCH (09:00)
[2017-03-01] MEDS: Loratadine 10 MG TABLET PO SCH (09:11)
[2017-03-01] MEDS: Fluticasone Propionate Nasal 50 MCG/SPRAY BOTTLE NS SCH (09:12)
[2017-03-01] MEDS: Furosemide 40 MG TABLET PO SCH (09:12)
[2017-03-01] MEDS: Pregabalin 75 MG CAPSULE PO SCH (09:13)
[2017-03-01] MEDS: Potassium Citrate 10 MEQ TABLET.ER PO SCH (09:14)
[2017-03-01] MEDS: BuPROPion SR (12 HR) 150 MG TABLET PO SCH (09:14)
[2017-03-01] MEDS: Baclofen 10 MG TABLET PO PRN ×2 (09:20→13:29)
[2017-03-01] MEDS: Budesonide/Formoterol 160/4.5 MDI IH SCH (10:33)
[2017-03-01 11:56] VITALS: BP 191/100
[2017-03-01] MEDS: cloNIDine HCl 0.1 MG TABLET PO PRN (12:05)
[2017-03-01] MEDS ORDERED: amLODIPine 5 MG TABLET PO SCH (15:30)
--- NOTE | 2017-03-01 15:35 | Discharge Summary ---
Date of Encounter: 03/01/17 Time of Encounter: 15:26 - Discharge Diagnosis (1) Acute exacerbation of chronic obstructive airways disease Priority: Primary Status: Acute (2) DANYELLE (obstructive sleep apnea) Priority: Secondary Status: Chronic (3) HTN (hypertension) Priority: Secondary Status: Chronic Qualifiers: Hypertension type: essential hypertension Qualified Code(s): I10 - Essential (primary) hypertension (4) Diabetes Priority: Secondary Status: Chronic Qualifiers: Diabetes mellitus type: type 2 Diabetes mellitus complication status: with hyperglycemia Diabetes mellitus half-way insulin use: without special education secretary use Qualified Code(s): E11.65 - Type 2 diabetes mellitus with hyperglycemia (5) Morbid obesity Priority: Secondary Status: Chronic Qualifiers: Obesity type: due to excess calories Qualified Code(s): E66.01 - Morbid ( severe) obesity due to excess calories (6) DVT prophylaxis Priority: Secondary Status: Acute - Discharge Medications Prescriptions: Amlodipine [Norvasc] 10 mg PO DAILY #30 tablet Home Medications: Albuterol Sulfate [Albuterol Inhaler] 2 puff IH Q4H PRN 11/01/16 [History] Baclofen [Lioresal] 10 mg PO TID PRN 11/01/16 [History] Cetirizine HCl [All Day Allergy] 10 mg PO DAILY 11/01/16 [History] CloNIDine HCl [Clonidine HCl] 0.2 mg PO DAILY PRN 11/01/16 [History] Fluticasone Propionate Nasal [Flonase] 100 mcg NS DAILY 11/01/16 [History] Montelukast [Singulair] 10 mg PO QPM 11/01/16 [History] Oxycodone HCl/Acetaminophen [Percocet 7.5-325 mg Tablet] 1 tab PO Q4H PRN [History] Ranitidine HCl [Zantac] 300 mg PO QAM 11/01/16 [History] Metformin [Glucophage] 500 mg PO BIDWM #30 tablet 11/06/16 [Rx] Furosemide [Lasix] 40 mg PO DAILY 01/08/17 [History] Omeprazole [PriLOSEC] 20 mg PO DAILY 01/08/17 [History] Albuterol Neb [Proventil Neb] 2.5 mg IH Q4H PRN #1 inhsol 01/10/17 [Rx] BuPROPion SR (12 HR) [Wellbutrin SR] 150 mg PO DAILY #30 tablet.er 01/10/17 [Rx] Budesonide/Formoterol 160/4.5 [Symbicort 160/4.5] 2 puff IH BID #1 inhaler 01/10 [Rx] Dicyclomine [Bentyl] 10 mg PO TID PRN #90 capsule 01/10/17 [Rx] Escitalopram [Lexapro] 20 mg PO QPM #30 tablet 01/10/17 [Rx] Ibuprofen 800 mg PO TID PRN #90 tablet 01/10/17 [Rx] Potassium Citrate [Urocit-K] 20 meq PO DAILY #14 tablet.er 01/10/17 [Rx] Simvastatin [Zocor] 40 mg PO HS #30 tablet 01/10/17 [Rx] Meloxicam [Mobic] 7.5 mg PO DAILY 02/26/17 [History] Pregabalin [Lyrica] 150 mg PO BID 02/26/17 [History] Umeclidinium [place] [Incruse Ellipta] 1 puff IH DAILY 02/26/17 [History] Amlodipine [Norvasc] 10 mg PO DAILY #30 tablet 03/01/17 [Rx] Allergies/Adverse Reactions: Allergies latex Allergy (Verified 11/01/16 17:44) Rash morphine Adverse Reaction (Verified 11/01/16 19:22) Vomiting Date of admission: 02/26/17 13:59 Primary care physician: Torie Crespo CNP Consults: 02/26/17 15:55 Consult to Instrument Technician Apprentice [CONS] Routine Reason for SW Consult: Potential need for rehab on discharge 02/27/17 16:50 Consult to Occupational Therapy [CONS] Routine Comment: Evaluate, develop and implement POC Consult to Physical Therapy [CONS] Routine Comment: Evaluate, develop and implement POC Discharging clinician: Gladis Mcgarry Anticipated date of discharge: 03/01/17 - Patient Status Disposition: Home, Self-Care Condition: Good Functional capacity at discharge: independent ambulation Overall status at discharge: patient is back to baseline - Discharge Instructions Follow Up With: Torie Crespo CNP [Primary Care Provider] - 03/04/17 1:35 pm Additional Instructions: Please follow up with your primary care physician within five days after your discharge from the hospital. Please follow up with your title processor within one to two weeks after your discharge from the hospital. You are being discharged on a prednisone taper, please take this medication as prescribed. Amlodipine 10mg once a day has been added to your home medications due to your elevated blood pressure. Please inform your primary care physician of this change and closely monitor your blood pressure at home. Please resume all your other home medications as prescribed by your primary care physician. Continue CPAP support at bedtime. - Diet and Activity Activity: resume usual activities as tolerated Diet: diabetic diet Hospital course: Mr. David is a 56 year old morbidly obese man with medical history of COPD, obstructive sleep apnea, hypertension, type 2 diabetes was admitted for acute exacerbation of COPD. Patient was started on systemic steroids and bronchodilator support. Patients respiratory status improved and is currently saturating 98% on room air. Patient has established obstructive sleep apnea and uses CPAP at bedtime. Due to his morbidly obese status, patient gets easily fatigued with the slightest movement, due to which 6 minute walk test was done to evaluate the need for home oxygen. Patient's oxygen saturation did not drop below 95% with ambulation. Patient is also noted to be hypertensive for which amlodipine was added to his home medication list. He is currently saturating well on room air, in no acute distress, and hemodynamically stable. He will be discharged to home with a follow-up with his primary care physician and title processor. - Time Spent with Patient Total time spent providing and/or coordinating discharge services: Greater than 30 minutes - Constitutional Vitals: Temp Pulse Resp BP Pulse Ox 98.0 F 79 16 191/100 96 03/01/17 11:55 03/01/17 11:55 03/01/17 11:55 03/01/17 11:55 03/01/17 15:14 General appearance: Present: A&O X 3, morbidly obese, no acute distress, answers questions appropriately - Head Head exam: Present: atraumatic, normocephalic - Eye Eye exam: Present: normal appearance, conjuntiva pink, sclera anicteric - Respiratory Respiratory exam: Present: decreased breath sounds (equal air entry bilaterally but decreased breath sounds due to morbidly obese body habitus ). Absent: respiratory distress, wheezes - Cardiovascular Cardiovascular exam: Present: RRR, +S1, +S2. Absent: diastolic murmur, gallop, rubs, systolic murmur - GI/Abdominal GI/Abdominal exam: Present: normal bowel sounds, soft, no peritoneal signs. Absent: distended, tenderness - Extremities Exam Extremities exam: Present: warm, radial pulses palpable and symetrical. Absent : calf tenderness, cyanotic, pedal edema - Neurological Exam Neurological exam: Present: alert, oriented X3 - Psychiatric Psychiatric exam: Present: normal affect, normal mood
[2017-03-01] MEDS ORDERED: Losartan/HCTZ 50-12.5 TABLET PO SCH ×2 (16:15→17:00)
[2017-03-02] MEDS ORDERED: cloNIDine HCl 0.1 MG TABLET PO SCH (09:00)
== END 2017-03-01 18:40 | disposition home or self-care (01) ==
LOC: 3BNU 11:53 → EMEROO 11:53 → SUATTDRO 13:59 → 3BNU 15:35
PROVIDERS: ADMIT Internal Medicine; ATTEND Internal Medicine